=== PATIENT | male | born 1950 | race Caucasian/White ===

== ENCOUNTER 2021-01-30 09:17 | Emergency (ER) | payer OTHER, SELFPAY ==
[2021-01-30] VITALS (95 sets, daily range): BP systolic 95–178; BP diastolic 47–104; PULSE 64–104; RESP 10–28; TEMP 36.3; O2SAT 95–100
--- NOTE | 2021-01-30 09:15 | RT.EKG_ITS ---
APPROVED REPORT Exam: Resting ECG Reason for Exam: syncope Patient Location: E HR:76 bpm ECG Measurements Heart Rate 76 AXIS SC 161 P 63 QRSd 100 QRS 75 QT 414 T 26 QTc 466 Conclusion Sinus rhythm...normal P axis, V-rate 60- 99 Probable left atrial enlargement...P >50mS, <-0.10mV V1 Left ventricular hypertrophy...multiple LVH criteria no STEMI, prior EKG OSH with similar PILAR, no brugada, no WPW, [id number], non-diagnostic EKG I have reviewed and interpreted ECG and agree with software generated interpretation.
[2021-01-30] MEDS: Meclizine 25 MG TAB PO (10:12)
[2021-01-30 10:17] LABS: Abs Immature Grans 0.02 10^3/uL (0.0-0.06); Absolute Basophil Count 0.06 10^3/uL (0.0-0.2); Absolute Lymphocyte Count 3.03 10^3/uL (1.2-3.4); Absolute Monocyte Count 1.05 10^3/uL (0.1-0.8); Basophils % 0.6; Eosinophils % 0.9; HCT 49.8 % (40.0-50.0); HGB 16.2 g/dL (13.5-17.5); Immature Grans % 0.2; Lymphocytes % 28.2; MCH 32.6 pg (27.0-33.0); MCHC 32.5 % (32.0-36.0); MCV 100.2 fL (80-95); MPV 12.2 fL (8.0-11.0); Monocytes % 9.8; Neutrophils % 60.3; Nucleated RBC 0 %; Platelet Count 163 10^3/uL (130-400); RBC 4.97 10^6/uL (4.36-5.78); RDW 12.7 % (11.8-14.1); RDW-SD 47.6 fL; WBC 10.76 10^3/uL (4.4-10.8)
[2021-01-30 10:22] LABS: Bilirubin Negative (Negative); Blood Negative (Negative); Clarity Clear (Clear); Glucose Negative (Negative); Ketones Negative (Negative); Leukocyte Esterase Negative (Negative); Nitrite Negative (Negative)
[2021-01-30 10:35] LABS: ALT 30 U/L (16-63); AST 15 U/L (15-37); Albumin 3.9 g/dL (3.4-5.0); Alkaline Phosphatase 122 U/L (46-116); BUN 37 mg/dL (7-18); Bilirubin, Total 0.7 mg/dL (0.2-1.0); CREATININE 2.2 mg/dL (0.70-1.30); Calcium 9.2 mg/dL (8.5-10.1); Chloride 100 mmol/L (98-107); Estimated GFR 29.83 (mL/min/1.73m2); Glucose 83 mg/dL (74-106); Magnesium 2.5 mg/dL (1.8-2.4); Potassium 3.8 mmol/L (3.5-5.1); Sodium 137 mmol/L (136-145); Total Protein 8.3 g/dL (6.4-8.2)
[2021-01-30 10:43] LABS: Troponin I < 0.05 ng/mL (<0.06)
[2021-01-30] MEDS: Normal Saline 1,000 ML 1000 ML IV ×2 (11:15→12:30)
[2021-01-30 12:41] LABS: D-Dimer 936 ng/mlFEU (<500)
[2021-01-30 13:33] LABS: Anion Gap 4.8 mmol/L (3-11); BUN 35 mg/dL (7-18); CO2 28.2 mmol/L (21.0-32.0); CREATININE 1.9 mg/dL (0.70-1.30); Chloride 106 mmol/L (98-107); Estimated GFR 35.32 (mL/min/1.73m2); Glucose 90 mg/dL (74-106); Potassium 4.3 mmol/L (3.5-5.1); Sodium 139 mmol/L (136-145)
[2021-01-30] MEDS: Omnipaque 350 MG/ML 100 ML BTL IJ (13:54)
[2021-01-30] MEDS: Normal Saline - Diluent 50 ML VIAL IV (13:55)
--- NOTE | 2021-01-30 13:55 | DI.CT_ITS ---
Exam(s) CT BRAIN NECK CTA EXAM: CT BRAIN NECK CTA CLINICAL HISTORY: dizziness, 70%occlusion right carotid. TECHNIQUE: Imaging Protocol: Axial CT angiography was performed with multi-slice acquisition and mu lti-planar and/or 3D reconstructions. CONTRAST MATERIAL: Intravenous: Omnipaque 350 Contrast volume:60 cc COMPARISON: No exams were available for comparison FINDINGS: CTA Neck W: Aortic arch anatomy: Sternotomy wires are noted. There is significant atherosclerotic disease in the aortic arch. There is an endovascular stent noted within the subclavian artery which appears patent . Moderate atherosclerotic involvement seen at the origin of the left common carotid artery. Advanc ed atherosclerotic involvement of the origin of the brachiocephalic artery, with both soft and hard c alcified plaque at this level. Anterior circulation: No significant stenosis at the origin of the right common carotid artery off of the brachiocephalic. There is heavily calcified plaque at the right carotid bifurcation and proximal right ICA with approx imately 70 percent stenosis at this level. Above this level the right ICA is patent in the upper nec k and skull base. Left common carotid artery exhibits moderate stenosis at its origin. Mild plaque along medial wall o f the ascending left common carotid artery. There is posterior wall calcified plaque at the left car otid bifurcation. Approximately 40 percent stenosis in the proximal left ICA. Above this level the left in the internal carotid artery is patent in the upper neck and skull base. Posterior circulation: The right vertebral artery is dominant. It arises in conventional fashion off of the right subclavia n artery. There is a mild stenosis at its origin. This vessel ascends in the foramen transverse are a with a luminal diameter of 3.8 millimeters and no evidence of intraluminal thrombus nor dissection and this vessels the main contributor to the formation of the basilar artery at the skull base. The left vertebral artery is occluded at its origin.. This may be related to presence of the stent i n the proximal subclavian artery. A thin left vertebral artery is reconstituted in foramen transvers e area in the upper neck and does contribute to the formation of the basilar artery at the skull base . CTA Brain W: Anterior circulation: Both internal carotid arteries are patent in the skull base and cavernous sinuses with some mural kerri cification. Supraclinoid aspects are patent. Both middle cerebral arteries are patent. Left A1 seg ment is patent. Right A1 segment is thin vessel. Both anterior cerebral arteries are patent. There is no aneurysm at the level of the anterior communicating artery. Posterior circulation: Thin basilar artery ascends in the midline. Distally it gives off patent superior cerebellar arterie s. Above this level terminates as patent right posterior cerebral artery. The left posterior cerebr al artery is predominantly fed by posterior communicating artery on the left side of the ukhdpl-iq-Wa llis. There is no evidence of aneurysm of the tip of the basilar artery nor elsewhere in the [id number] is. CT BRAIN: There is no evidence of intracranial hemorrhage, mass effect, or shift of midline structures. There are no extra-axial fluid collections. Ventricles are not enlarged or shifted. There are no ring enh ancing lesions in the brain and no abnormal meningeal enhancement. There is no evidence of dural ronald ous sinus thrombosis. Symmetrical calcification is noted in both basal ganglia. There is moderate amount of hypodensity in the white matter surrounding the ventricles, slightly more so on the left side. Consistent with chr onic small vessel ischemic disease. IMPRESSION: 1. Patent intracranial arteries. No evidence of intraluminal thrombus nor aneurysm. 2. Left vertebral artery is occluded at its origin and reconstituted in the mid-upper in neck forame n transversarium. This may be related to the fact that there is a stent in the left subclavian arter y. The opposite-right vertebral artery is patent. 3. There is significant atherosclerotic involvement at the origin of the great vessels off the aort ic arch, this being most severe at the origin of the brachiocephalic artery. 4. There is significant atherosclerotic disease at the carotid bulbs and proximal internal carotid a rteries in the neck, with approximately 70 percent stenosis on the right side and approximately 40 pe rcent stenosis on the left side. See separate pulmonary embolus CTA study. RADIATION DOSE DELIVERED: 1,975.66mGy.cm Total DLP DATA REPOSITORY: All CT scans at this facility are submitted to the National Radiology Data Registry (NRDR) Dose Index Registry (DIR) with the [employer] (ACR). RADIATION OPTIMIZATION: All CT scans at this facility use at least one of these dose optimization te chniques: automated exposure control; mA and/or kV adjustment per patient size (includes targeted exa ms where dose is matched to clinical indication); or iterative reconstruction.
[2021-01-30 14:02] LABS: Troponin I < 0.05 ng/mL (<0.06)
--- NOTE | 2021-01-30 14:20 | DI.CT_ITS ---
Exam(s) CT CHEST PE CTA EXAM: CT CHEST PE CTA CLINICAL HISTORY: dizziness, shortness of breath ,elevated ddimer. TECHNIQUE: Imaging Protocol: CT angiography of the chest was performed using pulmonary embolus medhat col. Multi planar reconstructions were performed. CONTRAST MATERIAL: Intravenous: Omnipaque 350 Contrast volume: 40 cc COMPARISON: CT CT BRAIN NECK CTA from 01/30/2021 FINDINGS: CHEST: Less than optimal bolus timing for opacification of the pulmonary arterial tree. Most of the contrast is in the aortic arch. PULMONARY ARTERIES: There are no obvious intraluminal filling defects to suggest acute pulmonary embo li nor realized limitations of the study.. LUNGS: Emphysematous changes bilaterally.. There is a pleural-based noncalcified nodule in the right middle lobe measuring 5 millimeters. No other focal right lung findings nor pleural effusion. Left lung is clear. No pleural effusion. No findings in the trachea and mainstem bronchi. MEDIASTINUM: There is no hilar nor mediastinal adenopathy. Visualized thyroid unremarkable. CARDIAC: Sternotomy wires. Heart size is normal. No pericardial effusion. No aortic dissection.Ath erosclerotic aorta but upper normal size. Maximum diameter of the ascending thoracic aorta is 3.8 cm . Coronary artery calcification is noted. There is no significant shift of the interventricular se ptum. PARTIALLY VISUALIZED UPPERMOST ABDOMEN: No obvious findings OSSEOUS: No significant osseous lesions.. IMPRESSION: 1. No evidence of obvious acute pulmonary emboli. No evidence of pulmonary infarction.No pleural eff usions. 2. There is a solitary pleural-based 5 millimeter nodule in the right middle lobe. 3. No intrathoracic adenopathy evident. RADIATION DOSE DELIVERED: 258.35mGy.cm Total DLP DATA REPOSITORY: All CT scans at this facility are submitted to the National Radiology Data Registry (NRDR) Dose Index Registry (DIR) with the [employer] (ACR). RADIATION OPTIMIZATION: All CT scans at this facility use at least one of these dose optimization te chniques: automated exposure control; mA and/or kV adjustment per patient size (includes targeted exa ms where dose is matched to clinical indication); or iterative reconstruction.
--- NOTE | 2021-01-30 14:55 | ED.GENADUL_ITS ---
Discharge Plan Disposition Patient Disposition: HOME Condition: Stable Discharge Details Clinical Impression: Acute renal insufficiency, Vertebral artery disease, Light-headed feeling, Pulmonary nodule Primary Care Provider: Sarah Oshea ED Provider: Awais Fox Home Meds and New Rx's Prescriptions: Continued aspirin [Aspir-81] 81 MG tablet,delayed release (DR/EC) 81 mg PO DAILY RF: 0 lisinopril 2.5 MG tablet 2.5 mg PO DAILY RF: 0 omeprazole 20 mg capsule,delayed release(DR/EC) RF: 0 hydrochlorothiazide 25 mg Tablet 25 mg PO DAILY RF: 0 Discharge Instructions Additional Instructions: You will need repeat creatinine by your primary care physician Increase your hydration Follow-up with your doctor regarding your pulmonary nodule Suspect your lightheadedness is secondary to dehydration Please return immediately should you have new or worsening complaints The remainder of your test do not show acute abnormality I discussed your CTA imaging with neurology at [facility], they recommend routine outpatient ultrasound through your primary care provider. Discharge Data Discharge Date/Time-TO BE ENTERED AT DEPARTURE: 01/30/21 19:00 Medical Decision Making <WALLY Carroll - Last Filed: 01/31/21 22:51> Patient is alert and oriented, of decisional capacity, his orthostatics are negative, his EKG x2 do not show acute change, I compared this to a prior EKG that was sent over from the peds office His initial troponin and second troponin are negative He has no chest pain or shortness of breath He is ambulatory with steady gait His creatinine is elevated at 2.2 it sounds like this is acute exacerbation of his chronic renal failure He states he felt similar to this in the past but never been evaluated for it. He denies any recent neck manipulations or head injuries. Of note, because of his creatinine careful consideration was made us whether or not to perform CT imaging on the patient with After long discussion with risk and benefit, patient has consented to risk associated including risk of kidney failure and acute need for dialysis, he prefers to no that his carotid arteries are unchanged He is feeling mild improvement after IV fluid resuscitation, after repeat BMP, his creatinine is now 1.9 and BUN has decreased to 35 I did discuss the case with his PCP, Sarah and [facility] and she confirmed that this creatinine is not in acute change for patient although slightly in from prior There is no electrolyte abnormality CTA shows vertebral artery occlusioN 70% carotid artery occlusion, no other acute findings Patient is feeling symptomatically improved, his BNP creatinine has improved to 1.9 He will likely be discharged back to facility in stable condition with stable vital Expected symptoms are related to mild dehydration as he was responsive his fluid hydration in the emergency room Patient signed out to Awais Fox pending neurology consultation at [facility] <WALLY Long - Last Filed: 01/30/21 18:41> I assumed care of this 70-year-old gentleman my colleague WALLY Casanova, please see her initial HPI and examination. At time of signout awaiting neurology consultation. Patient initially presented in police custody, he is incarcerated, complaining of lightheadedness and/or dizziness for the past few days. Denies ch est pain, shortness of breath, etc. CTA of the head and neck reveals a vertebral occlusion, he does have a subclavian stent. Patient did receive IV fluid, did appear dry, and after IV fluid his renal function improved and he is asymptomatic. I received a call from neurology at 1750, Dr. Cortez. We initially discussed the case, he was going to review imaging from today and previous and call me b ack. He called me back at 1810. [place] as though there is nothing acute on the CTA today, did not require any emergent intervention. He felt as though the patient could continue to have outpatient follow-up ultrasounds through his primary care provider, had no additional recommendations at this time from a neurologic standpoint. Discussed case with patient. He is relieved regarding his CTA and my c onversation with neurology. He is currently asymptomatic and has no additional questions or concerns. He is comfortable discharge. Standard discharge and return precautions provided. This documentation was generated using [employer] system, please disregard any oddities of phrase or misspellings. HPI <WALLY Carroll - Last Filed: 01/31/21 22:51> General Mode of arrival: ambulatory . Date/Time Provider Initiated Documentation: 01/30/21 09:39 . Limitations to Documentation: no limitations . Information obtained by: patient . HPI Narrative: This 70-year-old male with past medical history of coronary artery disease, hypertension, hyperlipidemia presents with report of lightheadedness. Lightheadedness patient states he had a for the past 3 days. He denies any chest pain or shortness of breath. He denies any overt dizziness or weakness. He does have a prior history and and CABG done several years ago. He denies any change in his medication aside from removing the lisinopril secondary to hypotension and only taking carvedilol, aspirin, and Lipitor at this time. He states his symptoms are exacerbated when he goes from sitting to standing. He denies any additional complaints at this time. Related Data Home Medications Medication Instructions Recorded Confirmed aspirin [Aspir-81] 81 mg PO DAILY 10/21/15 01/30/21 lisinopril 2.5 mg PO DAILY 10/21/15 01/30/21 hydrochlorothiazide 25 mg PO DAILY 01/30/21 01/30/21 omeprazole 01/30/21 01/30/21 Allergies Allergy/AdvReac Type Severity Reaction Status Date / Time codeine AdvReac Intermediate Nausea Unverified 01/30/21 09:29 General Stated Complaint: Dizzy/Sync TED: 3 Review of Systems <WALLY Carroll - Last Filed: 01/31/21 22:51> All systems reviewed & are unremarkable except as noted in HPI and below PFSH <WALLY Carroll - Last Filed: 01/31/21 22:51> Social History Smoking/Tobacco Use Status: Former Tobacco Use Smoking risk assessment performed?: Yes Alcohol Intake: former Drug use: Rarely Substance use type: marijuana Do you feel safe at home: Yes Do you feel safe in your relationship?: Yes Exam <WALLY Carroll - Last Filed: 01/31/21 22:51> Const General: cooperative, comfortable and no acute distress HENCA Head: normal to inspection Mouth: oral mucosae normal Throat: uvula midline Eyes Pupils: PERRL EOM: EOM intact bilaterally Neck Other: Right carotid bruit Chest Chest: normal inspection of the chest Resp Effort & Inspection: normal respiratory effort Auscultation: clear to auscultation bilaterally Cardio Rate: regular rate Rhythm: regular rhythm GI Inspection: normal to inspection Skin General skin exam: no rashes or lesions noted Neuro General: patient alert and patient oriented x3 Cranial Nerves: CN's II-XI intact bilaterally and tongue midline Cognition: normal cognition Speech: speech normal Gait: normal gait Motor: muscle tone normal throughout, strength 5/5 throughout and no pronator drift Sensory Exam: no sensory deficits noted Extrem General: normal to inspection and capillary refill normal Psych Appearance: grossly normal and well kempt Course <WALLY Carroll - Last Filed: 01/31/21 22:51> Vital Signs Vital signs: Vital Signs Respiratory Rate 14 01/30/21 09:21 Temperature 36.3 C L 01/30/21 09:26 Temperature Source Skin 01/30/21 09:26 Pulse 70 01/30/21 14:45 Pulse 73 01/30/21 14:50 Respiratory Rate 16 01/30/21 14:50 Respiratory Effort Non-Labored 01/30/21 09:33 Respiratory Depth Normal 01/30/21 09:33 Respiratory Pattern Normal 01/30/21 09:33 Blood Pressure 125/54 L 01/30/21 14:45 Blood Pressure Mean 73 01/30/21 14:45 Blood Pressure Position Supine 01/30/21 09:26 Pulse Oximetry 99 01/30/21 14:50 Oxygen Delivery Method Room Air 01/30/21 09:26 Oxygen Flow Rate 0 01/30/21 09:26 Pain Level 0 01/30/21 09:26 Lab/Test Results Lab/Test Results: Laboratory Tests Range/Units 01/30/21 01/30/21 01/30/21 10:10 10:11 10:11 WBC (4.4-10.8) 10^3/uL 10.76 RBC (4.36-5.78) 10^6/uL 4.97 Hgb (13.5-17.5) g/dL 16.2 Hct (40.0-50.0) % 49.8 MCV (80-95) fL 100.2 H MCH (27.0-33.0) pg 32.6 MCHC (32.0-36.0) % 32.5 RDW (11.8-14.1) % 12.7 Plt Count (130-400) 10^3/uL 163 MPV (8.0-11.0) fL 12.2 H Immature Gran % 0.2 Neutrophils % 60.3 Lymphocytes % 28.2 Monocytes % 9.8 Eosinophils % 0.9 Basophils % 0.6 Nucleated RBC % % 0 Absolute Neutrophils (1.2-6.7) 10^3/uL 6.50 Absolute Lymphocytes (1.2-3.4) 10^3/uL 3.03 Absolute Monocytes (0.1-0.8) 10^3/uL 1.05 H Absolute Eosinophils (0.0-0.7) 10^3/uL 0.10 Absolute Basophils (0.0-0.2) 10^3/uL 0.06 D-Dimer (<500) ng/mlFEU Sodium (136-145) mmol/L 137 Potassium (3.5-5.1) mmol/L 3.8 Chloride (98-107) mmol/L 100 Carbon Dioxide (21.0-32.0) mmol/L 30.0 Anion Gap (3-11) mmol/L 7.0 BUN (7-18) mg/dL 37 H Creatinine (0.70-1.30) mg/dL 2.2 H Estimated GFR/1.73 m2 (mL/min/1.73m2) 29.83 Glucose (74-106) mg/dL 83 Calcium (8.5-10.1) mg/dL 9.2 Magnesium (1.8-2.4) mg/dL 2.5 H Total Bilirubin (0.2-1.0) mg/dL 0.7 AST (15-37) U/L 15 ALT (16-63) U/L 30 Alkaline Phosphatase (46-116) U/L 122 H Troponin I (<0.06) ng/mL < 0.05 Total Protein (6.4-8.2) g/dL 8.3 H Albumin (3.4-5.0) g/dL 3.9 Urine Color (Yellow) Yellow Urine Clarity (Clear) Clear Urine pH (5-8) 6.0 Ur Specific [place] (1.005-1.025) 1.020 Urine Protein (Negative) mg/dL Negative Urine Ketones (Negative) mg/dL Negative Urine Blood (Negative) Negative Urine Nitrite (Negative) Negative Urine Bilirubin (Negative) Negative Urine Urobilinogen (Up TO 0.2) EU/dL 1.0 H Ur Leukocyte Esterase (Negative) Negative Urine Glucose (Negative) mg/dL Negative Range/Units 01/30/21 01/30/21 01/30/21 10:11 12:45 13:20 WBC (4.4-10.8) 10^3/uL RBC (4.36-5.78) 10^6/uL Hgb (13.5-17.5) g/dL Hct (40.0-50.0) % MCV (80-95) fL MCH (27.0-33.0) pg MCHC (32.0-36.0) % RDW (11.8-14.1) % Plt Count (130-400) 10^3/uL MPV (8.0-11.0) fL Immature Gran % Neutrophils % Lymphocytes % Monocytes % Eosinophils % Basophils % Nucleated RBC % % Absolute Neutrophils (1.2-6.7) 10^3/uL Absolute Lymphocytes (1.2-3.4) 10^3/uL Absolute Monocytes (0.1-0.8) 10^3/uL Absolute Eosinophils (0.0-0.7) 10^3/uL Absolute Basophils (0.0-0.2) 10^3/uL D-Dimer (<500) ng/mlFEU 936 H Sodium (136-145) mmol/L 139 Potassium (3.5-5.1) mmol/L 4.3 Chloride (98-107) mmol/L 106 Carbon Dioxide (21.0-32.0) mmol/L 28.2 Anion Gap (3-11) mmol/L 4.8 BUN (7-18) mg/dL 35 H Creatinine (0.70-1.30) mg/dL 1.9 H Estimated GFR/1.73 m2 (mL/min/1.73m2) 35.32 Glucose (74-106) mg/dL 90 Calcium (8.5-10.1) mg/dL 8.0 L Magnesium (1.8-2.4) mg/dL Total Bilirubin (0.2-1.0) mg/dL AST (15-37) U/L ALT (16-63) U/L Alkaline Phosphatase (46-116) U/L Troponin I (<0.06) ng/mL < 0.05 Total Protein (6.4-8.2) g/dL Albumin (3.4-5.0) g/dL Urine Color (Yellow) Urine Clarity (Clear) Urine pH (5-8) Ur Specific [place] (1.005-1.025) Urine Protein (Negative) mg/dL Urine Ketones (Negative) mg/dL Urine Blood (Negative) Urine Nitrite (Negative) Urine Bilirubin (Negative) Urine Urobilinogen (Up TO 0.2) EU/dL Ur Leukocyte Esterase (Negative) Urine Glucose (Negative) mg/dL Sign Out <WALLY Carroll - Last Filed: 01/31/21 22:51> Sign Out Data: Sign Out Comment: Pending CTA head and neck interpretation review with on-call neurology Last updated by Marian Goss PA at 01/30/21 16:57
--- NOTE | 2021-01-30 15:00 | RT.EKG_ITS ---
APPROVED REPORT Exam: Resting ECG Reason for Exam: DIZZY Patient Location: E HR:75 bpm ECG Measurements Heart Rate 75 AXIS ID 172 P 53 QRSd 98 QRS 74 QT 422 T -7 QTc 472 Conclusion Sinus rhythm...normal P axis, V-rate 60- 99 Probable anteroseptal infarct, recent...Q, ST>0.15mV, T neg, V1-V2 no STEMI, non-diagnostic EKG I have reviewed and interpreted ECG and agree with software generated interpretation.
== END 2021-01-30 19:00 | disposition home or self-care (01) ==
PROVIDERS: Physician Assistant; Emergency Provider Physician Assistant; PCP Nurse Practitioner
DX: N28.9 Disorder of kidney and ureter, unspecified (principal); R42 Dizziness and giddiness; I65.02 Occlusion and stenosis of left vertebral artery; R91.1 Solitary pulmonary nodule
CPT/HCPCS: 36415; 70496; 70498; 71275; 80048; 80053; 93005; 96360; 96361; 99285; 81003; 83735; 84484; 85025; 85379; 93010; J3490

== ENCOUNTER 2021-03-02 11:32 | Emergency (ER) | payer OTHER, SELFPAY ==
[2021-03-02] VITALS (70 sets, daily range): BP systolic 112–136; BP diastolic 57–68; PULSE 57–70; RESP 11–26; TEMP 36.5–36.8; O2SAT 96–100
--- NOTE | 2021-03-02 11:15 | RT.EKG_ITS ---
APPROVED REPORT Exam: Resting ECG Reason for Exam: chest pain Patient Location: E HR:60 bpm ECG Measurements Heart Rate 60 AXIS NH 165 P 56 QRSd 108 QRS 72 QT 489 T 12 QTc 488 Conclusion Sinus rhythm...normal P axis, V-rate 60- 99 Probable left atrial enlargement...P >50mS, <-0.10mV V1 Left ventricular hypertrophy...multiple LVH criteria
--- NOTE | 2021-03-02 11:32 | ED.GENADUL_ITS ---
Discharge Plan Disposition Patient Disposition: [facility] Condition: Stable Discharge Details Clinical Impression: Chest pain Primary Care Provider: Sarah Oshea ED Provider: Maco Ruiz Home Meds and New Rx's Prescriptions: Continued aspirin [Aspir-81] 81 MG tablet,delayed release (DR/EC) 81 mg PO DAILY RF: 0 lisinopril 2.5 MG tablet 2.5 mg PO DAILY RF: 0 hydrochlorothiazide 25 mg Tablet 25 mg PO DAILY RF: 0 carvedilol 12.5 mg tablet 12.5 mg PO DAILY RF: 0 omeprazole 40 mg capsule,delayed release(DR/EC) 40 mg PO DAILY RF: 0 amitriptyline 10 mg tablet 10 mg PO HS RF: 0 pregabalin 150 mg capsule 150 mg PO BID RF: 0 Discharge Instructions Additional Instructions: your blood work, ekg and xray did not show concerning findings this pain is likely related to your esophagus you may need to see a revenue investigator and also have an endoscopy done if symptoms continue if you feel more ill, have fevers or severe worsening pain return to the emergency department Medical Decision Making 70 yo male with hx of cabg 7 years ago, htn, who comes in from the [facility] with chest pain. He states the pain has been constant for 2 months or longer he believes. He states he has had trouble swallowing food and feels like it gets stuck in the esophagus. He denies radiation of the pain, diaphoresis, n/v, or pain with exertion. He has tenderness of the anterior chest on exam. He is in no distress speaking in full sentences. He has clear lungs, soft nontender abdomen, no jvd or leg swelling or calf tenderness. He was seen here at the end of January and had a cta of his chest with no acute findings, no PE, and currently has no tachycardia, hypoxia or evidence of dvt on exam so do not feel this is likely a PE. No tearing back pain and normal sensation so doubt dissection. His symptoms seem atypical for acs especially with the component of feeling food getting stuck in his esophagus and feel it is likely related to his esophagus but will obtain ecg and troponin and obtain cxr as well. labs and imaging shows no acute findings, remains stable. He has no pain and states he is just feeling as though food is getting stuck in his distal esophagus. He is drinking water here normally and can eat soft foods as well. Had no obvious mass on CT a month ago so doubt cancer but discussed he may need to have an egd if symptoms continue. Will obtain delta troponin. pt stable, delta troponin negative. Discussed with pt and he is stable for d/c, return precautions given Differential Diagnosis Differential Diagnosis: chest wall pain, esophageal spasm, nstemi Imaging Data Radiologic Study: Attestation: I personally reviewed and interpreted this imaging study as follows: Imaging: X-Ray Radiologist's impression: no acute findings Lab Data Lab results reviewed: Yes I reviewed the patient's lab results. ECG Data Attestation: I personally reviewed and interpreted this ECG (s) as follows: Prior ECG tracings: available for review Interpretation: sinus rhythm, rate of 60, no acute st t wave ischemic findings compared to prior ekg HPI General Mode of arrival: EMS . Date/Time Provider Initiated Documentation: 03/02/21 11:42 . Limitations to Documentation: no limitations . Information obtained by: patient . History of Present Illness 70 year old M presents to the emergency department with the chief complaint of chest pain, described as moderate, Patient started experiencing this month(s) (1) and it has been constant. No relieving factors improve symptom(s), No exacerbating factors reported . Patient notes no other symptoms.. Patient did receive the following treatments prior to arrival, none Related Data Home Medications Medication Instructions Recorded Confirmed aspirin [Aspir-81] 81 mg PO DAILY 10/21/15 03/02/21 lisinopril 2.5 mg PO DAILY 10/21/15 03/02/21 hydrochlorothiazide 25 mg PO DAILY 01/30/21 03/02/21 amitriptyline 10 mg PO HS 03/02/21 03/02/21 carvedilol 12.5 mg PO DAILY 03/02/21 03/02/21 omeprazole 40 mg PO DAILY 03/02/21 03/02/21 pregabalin 150 mg PO BID 03/02/21 03/02/21 Allergies Allergy/AdvReac Type Severity Reaction Status Date / Time codeine AdvReac Intermediate Nausea Unverified 03/02/21 11:45 General TED: 3 Review of Systems All systems reviewed & are unremarkable except as noted in HPI and below Constitutional Constitutional: Denies chills, Denies fever(s) and Denies weakness Cardiovascular Cardiovascular: Denies dyspnea Respiratory Respiratory: Denies cough and Denies dyspnea Gastrointestinal Gastrointestinal: Denies abdominal pain, Denies nausea and Denies vomiting Musculoskeletal Musculoskeletal: Denies joint swelling Neurologic Neurologic: Denies weakness Psychiatric Psychiatric: Denies depression PFSH Social History Smoking/Tobacco Use Status: Former Tobacco Use Smoking risk assessment performed?: Yes Alcohol Intake: former Drug use: Rarely Substance use type: marijuana Do you feel safe at home: Yes Do you feel safe in your relationship?: Yes Exam Const General: no acute distress Orientation: alert HENMT Head: normal to inspection Ears: external ears normal General nose exam: external nose normal Mouth: moist mucous membranes Eyes General: appearance normal, both eyes and all related structures Neck Neck: normal visual inspection Chest Chest: no crepitus and tenderness Resp Effort & Inspection: normal respiratory effort and able to speak in complete sentences Cardio Rate: regular rate Skin General skin exam: no rashes or lesions noted Neuro General: patient alert and patient oriented x3 Extrem General: normal to inspection Psych Mental Status: mental status grossly normal
--- NOTE | 2021-03-02 11:45 | DI.RAD_ITS ---
Exam(s) XR CHEST 2V PA LATERAL EXAM: XR CHEST 2V PA LATERAL CLINICAL HISTORY: chest pain. TECHNIQUE: 2D digital imaging was performed. COMPARISON: No exams were available for comparison FINDINGS: Sternotomy wires are noted Heart size is normal. The mediastinum is not widened. Lungs are clear. No infiltrates nor pleural effusions. Pulmonary edema. No pneumothorax. IMPRESSION: Sternotomy wires. Previous CABG. No acute pulmonary findings. No pleural effusions. DATA REPOSITORY: RADIATION DOSE DELIVERED:
[2021-03-02 13:19] LABS: Abs Immature Grans 0.02 10^3/uL (0.0-0.06); Absolute Basophil Count 0.05 10^3/uL (0.0-0.2); Absolute Eosinophil Count 0.07 10^3/uL (0.0-0.7); Absolute Lymphocyte Count 2.58 10^3/uL (1.2-3.4); Absolute Monocyte Count 0.97 10^3/uL (0.1-0.8); Absolute Neutrophil Count 6.42 10^3/uL (1.2-6.7); Basophils % 0.5; Eosinophils % 0.7; HCT 43.5 % (40.0-50.0); HGB 14.4 g/dL (13.5-17.5); Immature Grans % 0.2; Lymphocytes % 25.5; MCH 32.4 pg (27.0-33.0); MCHC 33.1 % (32.0-36.0); MCV 97.8 fL (80-95); MPV 11.6 fL (8.0-11.0); Monocytes % 9.6; Neutrophils % 63.5; Nucleated RBC 0 %; Platelet Count 152 10^3/uL (130-400); RBC 4.45 10^6/uL (4.36-5.78); RDW 12.3 % (11.8-14.1); RDW-SD 44.4 fL; WBC 10.11 10^3/uL (4.4-10.8)
[2021-03-02 13:35] LABS: ALT 31 U/L (16-63); AST 19 U/L (15-37); Albumin 3.7 g/dL (3.4-5.0); Alkaline Phosphatase 117 U/L (46-116); Anion Gap 6.8 mmol/L (3-11); BUN 33 mg/dL (7-18); Bilirubin, Total 0.6 mg/dL (0.2-1.0); CO2 32.2 mmol/L (21.0-32.0); CREATININE 1.7 mg/dL (0.70-1.30); Calcium 9.1 mg/dL (8.5-10.1); Chloride 103 mmol/L (98-107); Estimated GFR 40.16 (mL/min/1.73m2); Glucose 108 mg/dL (74-106); Lipase 109 U/L (73-393); Potassium 3.8 mmol/L (3.5-5.1); Sodium 142 mmol/L (136-145); Total Protein 7.4 g/dL (6.4-8.2)
[2021-03-02 13:37] LABS: Troponin I < 0.05 ng/mL (<0.06)
[2021-03-02 15:10] LABS: Troponin I < 0.05 ng/mL (<0.06)
== END 2021-03-02 15:32 | disposition home or self-care (01) ==
PROVIDERS: Emergency Provider Emergency Medicine; PCP Nurse Practitioner
DX: R07.89 Other chest pain (principal); R13.10 Dysphagia, unspecified
CPT/HCPCS: 80053; 83690; 93005; 99284; 71046; 84484; 85025; 93010

== ENCOUNTER 2021-05-20 21:32 | Emergency (ER) | payer OTHER, SELFPAY ==
[2021-05-20 21:35] VITALS: BP 132/70; PULSE 76; RESP 12; TEMP 36.1; O2SAT 100
--- NOTE | 2021-05-20 22:07 | DI.CT_ITS ---
Exam(s) CT ABDOMEN PELVIS WO EXAM: CT ABDOMEN PELVIS WO CLINICAL HISTORY: epigastric pain, inability to tolerate p.o. intake. TECHNIQUE: Imaging Protocol: Axial computed tomography images with coronal and sagittal reformatted images were created and reviewed CONTRAST MATERIAL: Intravenous: none Oral: None COMPARISON: CT CT CHEST PE CTA from 01/30/2021 FINDINGS: VISUALIZED LUNG BASES: No pleural effusions. No obvious nodules in the visualized right lung base. There is a 2 millimeter pleural base nodule in the posterior basal segment of the left lower lobe. ABDOMEN: There is a moderate size hiatal hernia evident. There is no ascites. LIVER: There are no obvious focal hepatic lesions evident of this noninfused study. GALLBLADDER/BILIARY: Gallbladder lumen is mildly distended. No gallbladder wall edema. No radiopaqu e calculi seen within the gallbladder lumen. There is no pericholecystic fluid. CBD is not dilated. PANCREAS: No evidence of pancreatic mass nor dilatation of the pancreatic duct. SPLEEN: Spleen is not enlarged. No obvious intrasplenic lesions. ADRENALS: There are no significant adrenal masses. KIDNEYS:Right kidney unremarkable. In the lateral cortex of the left kidney there is a uniformly hyp erdense 10 x 9 millimeter nodule which probably represents a hemorrhagic cyst but cannot exclude more concerning pathology. No calculi. No hydronephrosis. No hydroureter. Urinary bladder wall is dif fusely thickened and this appears to be related to enlarged prostate. ABDOMINAL AORTA: Calcified but not enlarged. LYMPH NODES: There is no retroperitoneal nor paraaortic adenopathy. ABDOMINAL WALL: No evidence of significant anterior abdominal wall nor inguinal hernia. GI: There is no evidence of bowel obstruction, free air, nor abscess. PELVIS: LYMPH NODES: There is no intrapelvic nor inguinal adenopathy. GI: No evidence of appendicitis.No evidence of sigmoid diverticulitis. URINARY BLADDER: No calculi nor obvious masses evident REPRODUCTIVE: Unremarkable OSSEOUS: No significant osseous lesions. Ankylosis of the SI joints is noted. IMPRESSION: 1. There is mild distention of the gallbladder lumen without evidence of radiopaque calculi within th e lumen nor gallbladder wall edema nor pericholecystic fluid. If clinically indicated follow-up ultr asound could be performed. The CBD is not dilated. 2. Moderate size hiatal hernia is noted. 3. There is a 1 cm uniformly hyperdense nodule in the lateral aspect of the left kidney. This is pro bably hemorrhagic cyst but should undergo ultrasound to ensure that it is cystic and not solid. No o ther focal renal findings. No hydronephrosis. Other findings as above RADIATION DOSE DELIVERED: 538.65mGy.cm Total DLP DATA REPOSITORY: All CT scans at this facility are submitted to the National Radiology Data Registry (NRDR) Dose Index Registry (DIR) with the [employer] (A[employer]). RADIATION OPTIMIZATION: All CT scans at this facility use at least one of these dose optimization te chniques: automated exposure control; mA and/or kV adjustment per patient size (includes targeted exa ms where dose is matched to clinical indication); or iterative reconstruction.
[2021-05-20] MEDS: Normal Saline 1,000 ML 250 ML IV (22:10)
[2021-05-20] MEDS: FAMOTIDINE 20 MG/50 ML BAG 200 MG IVPB (22:25)
[2021-05-20 22:28] LABS: Abs Immature Grans 0.04 10^3/uL (0.0-0.06); Absolute Basophil Count 0.08 10^3/uL (0.0-0.2); Absolute Eosinophil Count 0.09 10^3/uL (0.0-0.7); Absolute Lymphocyte Count 3.24 10^3/uL (1.2-3.4); Absolute Monocyte Count 1.13 10^3/uL (0.1-0.8); Absolute Neutrophil Count 6.06 10^3/uL (1.2-6.7); Basophils % 0.8; Eosinophils % 0.8; HCT 45.7 % (40.0-50.0); HGB 14.7 g/dL (13.5-17.5); Immature Grans % 0.4; Lymphocytes % 30.5; MCH 32.3 pg (27.0-33.0); MCHC 32.2 % (32.0-36.0); MCV 100.4 fL (80-95); Monocytes % 10.6; Neutrophils % 56.9; Nucleated RBC 0 %; Platelet Count 186 10^3/uL (130-400); RBC 4.55 10^6/uL (4.36-5.78); RDW 12.7 % (11.8-14.1); RDW-SD 47.6 fL; WBC 10.64 10^3/uL (4.4-10.8)
[2021-05-20 22:31] VITALS: BP 151/54; PULSE 58; O2SAT 100
[2021-05-20 22:47] LABS: ALT 18 U/L (16-63); AST 23 U/L (15-37); Albumin 4.2 g/dL (3.4-5.0); Alkaline Phosphatase 158 U/L (46-116); Anion Gap 13.7 mmol/L (3-11); BUN 74 mg/dL (7-18); Bilirubin, Total 1.1 mg/dL (0.2-1.0); CO2 29.3 mmol/L (21.0-32.0); CREATININE 2.6 mg/dL (0.70-1.30); Calcium 10.1 mg/dL (8.5-10.1); Chloride 103 mmol/L (98-107); Estimated GFR 24.53 (mL/min/1.73m2); Glucose 92 mg/dL (74-106); Lipase 121 U/L (73-393); Magnesium 2.4 mg/dL (1.8-2.4); Potassium 3.5 mmol/L (3.5-5.1); Sodium 146 mmol/L (136-145); Total Protein 8.8 g/dL (6.4-8.2)
--- NOTE | 2021-05-20 22:52 | ED.GENADUL_ITS ---
Discharge Plan Disposition Patient Disposition: HOME Condition: Stable Discharge Details Clinical Impression: Abdominal pain, epigastric Primary Care Provider: Sarah Oshea ED Provider: Peter Ramachandran Home Meds and New Rx's Prescriptions: New famotidine [Pepcid] 20 mg tablet 20 mg PO BID Qty: 56 RF: 0 Continued atorvastatin 80 mg tablet 80 mg PO DAILY RF: 0 amlodipine 5 mg tablet 5 mg PO DAILY RF: 0 nitroglycerin [Nitrostat] 0.4 mg tablet, sublingual 0.4 mg sublingual Q5M PRNRF: 0 multivitamin Tablet 1 tab PO DAILY RF: 0 hydrochlorothiazide 25 mg tablet 25 mg PO DAILY RF: 0 aspirin [Aspir-81] 81 MG tablet,delayed release (DR/EC) 81 mg PO DAILY RF: 0 carvedilol 12.5 mg tablet 12.5 mg PO BID RF: 0 ondansetron HCl 4 mg Tablet 4 mg PO TID PRN PRNRF: 0 pantoprazole [Protonix] 40 mg Tablet,Delayed Release (Dr/Ec) 40 mg PO DAILY RF: 0 No Action amitriptyline 10 mg tablet 10 mg PO HS RF: 0 pregabalin 150 mg capsule 150 mg PO BID RF: 0 Discharge Instructions Instructions: Epigastric Pain (ED) Additional Instructions: Please follow-up with general surgery or a capital project engineer to schedule upper endoscopy. Call to schedule an appointment. Please drink on it please drink plenty of fluid to stay hydrated. Please take both Pepcid over the next 2 weeks as prescribed. Please be sure to Protonix as previously prescribed. Please contact your primary care physician to arrange follow-up. Return to the ER immediately for any worsening or new concerning symptoms. Referrals: [facility] [Provider Group] Sarah Oshea [Primary Care Provider] - Medical Decision Making <Liam Markham NP - Last Filed: 05/21/21 20:31> Patient presenting to the emergency department with chief complaint of epigastric pain. Patient reports that this has been ongoing for the past 4 months but over the past 2 to 3 weeks he has had noted decrease in ability to tolerate any p.o. intake. States similar symptoms in the past and beyond the severity and p.o. intake no other changes in symptoms. Physical exam shows exquisitely tender epigastrium otherwise unremarkable exam. Given significant decrease in p.o. intake do plan on checking labs with biggest concern of and performing CT imaging with concern of possible space-occupying lesion/mass we will plan to hydrate patient Reviewed labs and shows signs of acute renal insufficiency which at baseline patient has poor renal function. But otherwise nonconcerning electrolytes CBC is unremarkable and of note patient is not anemic. Patient does have signs of acute dehydration. Review of CT imaging along with radiologist interpretation shows a report of moderate distention of the gallbladder which is otherwise unremarkable and noting that this could be potentially reflecting a fasting gallbladder which per patient reports correlates. Otherwise no other acute findings are noted. Patient reassessed and states request for p.o. intake after famotidine and 1 L fluids. I feel this is reasonable and patient given GI cocktail and plan to p.o. challenge. We will also give patient further IV hydration given kidney function and recheck labs. <Peter Ramachandran MD - Last Filed: 05/21/21 07:47> I received signout from CHOCO Markham with plan to follow-up on repeat chemistry to ensure creatinine improving with fluid rehydration. Patient tolerating p.o. intake. Repeat creatinine and GFR have improved with IV fluid bolus. Plan for discharge with outpatient follow-up with general surgery for endoscopy. Patient was encouraged to drink plenty of fluids to maintain hydration. I will prescribe Pepcid and encouraged him to take Protonix as previously prescribed. Usual and customary discharge instructions were reviewed with the patient. HPI <Liam Markham NP - Last Filed: 05/21/21 20:31> General Mode of arrival: ambulatory . Date/Time Provider Initiated Documentation: 05/20/21 21:41 . Limitations to Documentation: no limitations . Information obtained by: patient . History of Present Illness 71 year old M presents to the emergency department with the chief complaint of Epigastric pain, described as moderate and similar to prior episodes, Quality is described as burning and aching, and is localized to the abdomen. Patient started experiencing this month(s) (4) and it has been constant. No relieving factors improve symptom(s), Eating worsens symptoms . Patient notes no other symptoms.. Patient did receive the following treatments prior to arrival, none Related Data Home Medications Medication Instructions Recorded Confirmed aspirin [Aspir-81] 81 mg PO DAILY 10/21/15 05/20/21 amitriptyline 10 mg PO HS 03/02/21 04/14/21 carvedilol 12.5 mg PO BID 03/02/21 05/20/21 pregabalin 150 mg PO BID 03/02/21 04/14/21 amlodipine 5 mg tablet 5 mg PO DAILY 03/14/21 05/20/21 atorvastatin 80 mg tablet 80 mg PO DAILY 03/14/21 05/20/21 multivitamin 1 tab PO DAILY 03/14/21 05/20/21 nitroglycerin 0.4 mg sublingual 0.4 mg SUBLINGUAL Q5M PRN 03/14/21 04/14/21 tablet hydrochlorothiazide 25 mg tablet 25 mg PO DAILY 04/07/21 05/20/21 ondansetron HCl 4 mg PO TID PRN PRN 05/20/21 05/20/21 pantoprazole [Protonix] 40 mg PO DAILY 05/20/21 05/20/21 famotidine [Pepcid] 20 mg PO BID #56 tab 05/21/21 Previous Rx's Medication Instructions Recorded famotidine [Pepcid] 20 mg PO BID #56 tab 05/21/21 Allergies Allergy/AdvReac Type Severity Reaction Status Date / Time pregabalin Allergy Unknown unknown Verified 05/20/21 21:51 codeine AdvReac Intermediate Nausea Unverified 05/20/21 21:51 General Stated Complaint: Abd Prob TED: 3 Review of Systems <Liam Markham NP - Last Filed: 05/21/21 20:31> Constitutional Constitutional: Denies chills, Denies fever(s) and Reports poor appetite ENT Ears, Nose, Mouth, and Throat: Denies dysphagia and Denies odynophagia Cardiovascular Cardiovascular: Denies chest pain and Denies dyspnea Respiratory Respiratory: Denies cough and Denies dyspnea Gastrointestinal Gastrointestinal: Reports as per HPI, Reports abdominal pain, Denies melena, Denies change in bowel habits, Denies constipation, Denies dysphagia, Reports heartburn, Denies diarrhea, Reports nausea, Denies odynophagia, Denies vomiting and Denies hematemesis Genitourinary Genitourinary: Denies difficulty urinating Integumentary/Breasts Skin/Breast: Denies rash PFSH <Liam Markham NP - Last Filed: 05/21/21 20:31> All Active Problems (Updated 05/21/21 @ 00:54 by Peter Ramachandran MD) Abdominal pain, epigastric (Acute) Murmur, heart (Acute) Dysphagia (Acute) Cerebrovascular disease (Acute) GERD (gastroesophageal reflux disease) (Chronic) Heart disease (Acute) Acute renal insufficiency (Acute) Vertebral artery disease (Acute) Light-headed feeling (Acute) Pulmonary nodule (Acute) Chest pain (Acute) Medical History Cataracts, bilateral Hypertension SARS-CoV-2 positive (~01/2021) Surgical History History of common carotid artery stent placement 2017 [facility] History of coronary artery bypass graft x [address] [place] [address] Social History Smoking/Tobacco Use Status: Former Tobacco Use Smoking risk assessment performed?: Yes Alcohol Intake: former Drug use: Never Do you feel safe at home: Yes Do you feel safe in your relationship?: Yes Exam <Liam Markham NP - Last Filed: 05/21/21 20:31> Const General: cooperative Orientation: alert, awake and oriented x3 Resp Effort & Inspection: normal respiratory effort and able to speak in complete sentences Auscultation: clear to auscultation bilaterally Cardio Rate: regular rate Rhythm: regular rhythm Heart Sounds: S1 normal and S2 normal GI Palpation: soft, no hepatosplenomegaly, not firm, no guarding, no masses, no pulsatile masses, not rigid, no splenomegaly and tender in the epigastrum; not at McBurney's point, Carpenter's sign negative and with no rebound tenderness Auscultation: hypoactive bowel sounds Back/Spine/Pelvis Back: no CVA tenderness Neuro General: patient alert, patient awake, patient oriented x3, gait normal and moves all extremities Course <Liam Markham NP - Last Filed: 05/21/21 20:31> Vital Signs Vital signs: Vital Signs Temperature 36.1 C L 05/20/21 21:35 Pulse 76 05/20/21 21:35 Respiratory Rate 12 05/20/21 21:35 Blood Pressure 132/70 05/20/21 21:35 Pulse Oximetry 100 05/20/21 21:35 Temperature 36.1 C L 05/20/21 21:35 Temperature Source Skin 05/20/21 21:35 Pulse 58 L 05/20/21 22:31 Respiratory Rate 12 05/20/21 21:35 Blood Pressure 151/54 H 05/20/21 22:31 Blood Pressure Mean 79 05/20/21 22:31 Pulse Oximetry 100 05/20/21 22:31 Oxygen Delivery Method Room Air 05/20/21 21:35 Oxygen Flow Rate 0 05/20/21 21:35 Pain Level 10 05/20/21 21:35 Lab/Test Results Lab/Test Results: Laboratory Tests Range/Units 05/20/21 05/20/21 22:00 22:00 WBC (4.4-10.8) 10^3/uL 10.64 RBC (4.36-5.78) 10^6/uL 4.55 Hgb (13.5-17.5) g/dL 14.7 Hct (40.0-50.0) % 45.7 MCV (80-95) fL 100.4 H MCH (27.0-33.0) pg 32.3 MCHC (32.0-36.0) % 32.2 RDW (11.8-14.1) % 12.7 Plt Count (130-400) 10^3/uL 186 MPV (8.0-11.0) fL 12.0 H Immature Gran % 0.4 Neutrophils % 56.9 Lymphocytes % 30.5 Monocytes % 10.6 Eosinophils % 0.8 Basophils % 0.8 Nucleated RBC % % 0 Absolute Neutrophils (1.2-6.7) 10^3/uL 6.06 Absolute Lymphocytes (1.2-3.4) 10^3/uL 3.24 Absolute Monocytes (0.1-0.8) 10^3/uL 1.13 H Absolute Eosinophils (0.0-0.7) 10^3/uL 0.09 Absolute Basophils (0.0-0.2) 10^3/uL 0.08 Sodium (136-145) mmol/L 146 H Potassium (3.5-5.1) mmol/L 3.5 Chloride (98-107) mmol/L 103 Carbon Dioxide (21.0-32.0) mmol/L 29.3 Anion Gap (3-11) mmol/L 13.7 H BUN (7-18) mg/dL 74 H Creatinine (0.70-1.30) mg/dL 2.6 H Estimated GFR/1.73 m2 (mL/min/1.73m2) 24.53 Glucose (74-106) mg/dL 92 Calcium (8.5-10.1) mg/dL 10.1 Magnesium (1.8-2.4) mg/dL 2.4 Total Bilirubin (0.2-1.0) mg/dL 1.1 H AST (15-37) U/L 23 ALT (16-63) U/L 18 Alkaline Phosphatase (46-116) U/L 158 H Total Protein (6.4-8.2) g/dL 8.8 H Albumin (3.4-5.0) g/dL 4.2 Lipase (73-393) U/L 121 Sign Out <Liam Markham NP - Last Filed: 05/21/21 20:31> Sign Out Data: Sign Out Comment: Patient signed out pending further rehydration and reassessment of labs for dehydration/decreased renal function. Last updated by Liam Markham NP at 05/20/21 23:43
--- NOTE | 2021-05-20 23:18 | DI.VRAD_ITS ---
PROCEDURE INFORMATION: Exam: CT Abdomen And Pelvis Without Contrast Exam date and time: 05/20/2021 10:51 PM Age: 71 years old Clinical indication: Abdominal pain; Patient HX: Epigastric pain, inability to tolerate po intake TECHNIQUE: Imaging protocol: Computed tomography of the abdomen and pelvis without contrast. COMPARISON: CT CHEST PE CTA 01/30/2021 2:07 PM FINDINGS: Liver: Normal. No mass. Gallbladder and bile ducts: The gallbladder is moderately distended but otherwise unremarkable potentially reflecting a fasting gallbladder. Pancreas: Normal. No ductal dilation. Spleen: Normal. No splenomegaly. Adrenal glands: Normal. No mass. Kidneys and ureters: Hemorrhagic left renal cyst measures 1 cm Stomach and bowel: Unremarkable. No obstruction. No mucosal thickening. Appendix: No evidence of appendicitis. Intraperitoneal space: Unremarkable. No free air. No significant fluid collection. Vasculature: Prominent atherosclerotic calcifications of the abdominal aorta are noted. Lymph nodes: Unremarkable. No enlarged lymph nodes. Urinary bladder: Urinary bladder wall thickening may reflect cystitis in the correct clinical setting Reproductive: Unremarkable as visualized. Bones/joints: Unremarkable. No acute fracture. Soft tissues: Unremarkable. IMPRESSION: The gallbladder is moderately distended but otherwise unremarkable potentially reflecting a fasting gallbladder. Sonography recommended however if right upper quadrant symptoms are present Dictated and Authenticated by: Joe Valles MD. Ordering:DIRK Wheeler MD
[2021-05-20] MEDS: Normal Saline 500 ML 250 ML IV (23:28)
--- NOTE | 2021-05-20 23:43 | NUR.NOTE ---
Referral [facility]ed to [facility] to f/u sooner rather than later for persistent epigastric pain. Pt has been seen by Dr. Rivera previously.Nursing Note:
[2021-05-21 00:36] LABS: Anion Gap 13.8 mmol/L (3-11); BUN 71 mg/dL (7-18); CO2 27.2 mmol/L (21.0-32.0); Calcium 8.2 mg/dL (8.5-10.1); Chloride 106 mmol/L (98-107); Glucose 85 mg/dL (74-106); Potassium 4.3 mmol/L (3.5-5.1); Sodium 147 mmol/L (136-145)
[2021-05-21 01:00] VITALS: BP 138/62; PULSE 60; RESP 16; O2SAT 100
== END 2021-05-21 01:08 | disposition home or self-care (01) ==
PROVIDERS: Nurse Practitioner Family; Emergency Provider Student in an Organized Health Care Education/Training Program; PCP Nurse Practitioner
DX: R10.13 Epigastric pain (principal)
CPT/HCPCS: 36415; 80048; 80053; 83690; 96361; 96374; 99284; 74176; 83735; 85025

== ENCOUNTER 2021-05-29 14:18 | Outpatient (CLI) | payer OTHER, SELFPAY ==
[2021-05-29 15:30] LABS: Source Nasal/Nares
[2021-05-29 23:37] LABS: COVID-19 PCR Negative (Negative)
== END 2021-05-29 14:19 | disposition home or self-care (01) ==
LOC: LBO 14:18
PROVIDERS: PCP Nurse Practitioner; Visit Provider Surgery
DX: Z20.822 Contact with and (suspected) exposure to COVID-19 (principal)
CPT/HCPCS: 87635

== ENCOUNTER 2021-05-30 12:28 | Inpatient (IN) | payer MEDICARE, MEDICAID, SELFPAY ==
--- NOTE | 2021-05-29 15:24 | HPE_ITS ---
Date of service: 05/30/21 Assessment and Plan Assessment and plan (1) Abnormal weight loss: Status: Acute Assessment and plan: -pt had a WA in 8 yrs ago. No stroke. He had a CABG and carotid stent He is on daily asa. smoker+ DM+ no problems w/ anesthesia in the past. Informed consent is obtained for the procedural (explained in simple layman's terms that the pt and/or family could understand) explaining risks vs benefits and alternatives to the procedure and consequences if we do not do the procedure and need/rational for the procedure. Risks include but are not limited to: bleeding, infection, perforation of esophagus, stomach, colon, small intestines, bronchus or trachea, or PTX. This would necessitate emergency surgery to repair the damage w/ possible ostomy; and other associated complications w/ the required surgery. Also complications of anesthesia including aspiration, WA/CVA/. pt was exposed to Covid. He did have covid in 2020. His recent covid test was negative. (2) Acute renal insufficiency: Status: Acute (3) Vertebral artery disease: Status: Acute (4) Pulmonary nodule: Status: Acute (5) Heart disease: Status: Acute (6) GERD (gastroesophageal reflux disease): Status: Chronic (7) Smoker: Status: Resolved (8) Cerebrovascular disease: Status: Acute (9) Abdominal pain, epigastric: Status: Acute (10) Dysphagia: Status: Acute Qualifiers: Dysphagia type: unspecified Qualified Code(s): R13.10 - Dysphagia, unspecified History of Present Illness Consults Consult date: 05/30/21 Narrative: Mr. Teixeira is a 71-year-old gentleman who is currently incarcerated who was sent by their medical team for an upper endoscopy. He was seen in the emergency department in February for chest pain. Cardiac work-up was negative and it was felt that his pain was due to his GERD and dysphagia. The patient had a CT a few months prior to that which was negative for cancer or PE. The patient states that he is having a hard time drinking liquids or eating any solids for the last 4 months. He feels like the liquid or the food is getting lodged in his throat. When he eats he has pain all the way down into his epigastric area. He sometimes will have pain in the entire upper abdomen. He was on pantoprazole 40 mg daily according to the records that we received. The patient tells me that he has stopped taking it because it does not work. Patient also complains of a 14 pound weight loss. He did have a Cologuard test 4 months ago which was negative. His past medical history is significant for a triple bypass in 2015 as well as a left carotid stent placement about 3 to 4 years ago. Current symptoms: Reports dysphagia, Denies cough and Reports heartburn Prior treatment: proton pump inhibitors he tired Prilosec adn pepcid adn didn't help. He ws a smoker. so this has been going on for 7- months Has a burning feeling in epigastric area, denies chest pain or sob. PT states he can't swallow anything- just comes right back up. He is loosing wt. He has tried pepcid and prilosec, neither of these helped. Also was taking scopalamine patch for nausea- this did not help either. No problems w/ anesthesia in the past. Planning [facility]. [facility] All Active Problems Abnormal weight loss (Acute) Acute renal insufficiency (Acute) Vertebral artery disease (Acute) Light-headed feeling (Acute) Pulmonary nodule (Acute) Chest pain (Acute) Heart disease (Acute) GERD (gastroesophageal reflux disease) (Chronic) Cerebrovascular disease (Acute) Dysphagia (Acute) Murmur, heart (Acute) Abdominal pain, epigastric (Acute) Medical History Cataracts, bilateral Hypertension SARS-CoV-2 positive (~01/2021) Asymptomatic Surgical History History of common carotid artery stent [place] [facility] [place] of coronary artery bypass graft x 3 2013- [facility]/[place], [place] Social History Smoking/Tobacco Use Status: Former Tobacco Use Smoking risk assessment performed?: Yes Alcohol Intake: former Drug use: Never Substance use type: does not use Do you feel safe at home: Yes Do you feel safe in your relationship?: Yes Additional Social history: [employer] inmate Meds Allergies and Home Medications Allergies Allergy/AdvReac Type Severity Reaction Status Date / Time codeine AdvReac Intermediate Nausea Unverified 05/30/21 10:43 Home Medications Medication Instructions Recorded Confirmed Type aspirin [Aspir-81] 81 mg PO DAILY 10/21/15 05/30/21 History carvedilol 12.5 mg PO BID 03/02/21 05/30/21 History amlodipine 5 mg tablet 5 mg PO DAILY 03/14/21 05/30/21 History atorvastatin 80 mg tablet 80 mg PO DAILY 03/14/21 05/30/21 History multivitamin 1 tab PO DAILY 03/14/21 05/30/21 History nitroglycerin 0.4 mg sublingual 0.4 mg SUBLINGUAL Q5M PRN 03/14/21 05/30/21 History tablet hydrochlorothiazide 25 mg tablet 25 mg PO DAILY 04/07/21 05/30/21 History ondansetron HCl 4 mg PO TID PRN PRN 05/20/21 05/30/21 History pantoprazole [Protonix] 40 mg PO DAILY 05/20/21 05/30/21 History famotidine [Pepcid] 20 mg PO BID #56 tab 05/21/21 05/30/21 Rx docusate sodium [Colace] 100 mg PO BID 05/26/21 05/30/21 History scopolamine base 1 mg TOPICAL Q3D PRN 05/26/21 05/30/21 History
--- NOTE | 2021-05-29 15:27 | ENDO_ITS ---
Date of service: 05/30/21 Endoscopy Report DATE OF PROCEDURE: 05/30/21 PRE-OP DIAGNOSIS: dysphagia/gerd /wt loss POST-OP DIAGNOSIS: other (Obstructing esophageal cancer) SURGEON: Leatha Mitchell ANESTHESIA TYPE: General LMA/ETT PATHOLOGY: other COMPLICATIONS: None DISPOSITION: PACU PROCEDURE DESCRIPTION: After informed consent was obtained the patient was take to the procedure room and placed in a supine position. Monitors were applied and a time out was done. The patients name, date of , procedure type, juan r rgies to medications and metal in their body was reviewed. A bite block was placed and the patient was sedated. Once anesthesia was administered, the gastroscope was advanced through the oropharynx which was grossly normal into the esophagus. The proximal and mid-esophagus show a whitish plaque. In the distal esophagus there is an obstructing mass. I am not able to pass scope beyond the mass. It is quite friable and bleeds readily. it does appear to be a cancer. It completely fills the lumen. Mult. biopsies were taken. There is a thick whitish plaque that coated the distal third of the esophagus . There are still food remnants within the esophagus . The distal esophagus is dilated. the scope was removed and the patient abated and taken to PACU Follow up: Patient will be admitted for hydration
--- NOTE | 2021-05-29 15:27 | W.PM.DSUDISC ---
Discharge Plan Disposition Patient Disposition: OTHER Condition: Good Discharge Details Reason For Visit: stomach scope Attending Provider: Leatha Mitchell Primary Care Provider: Sarah Oshea [place] Meds and New Rx's Prescriptions: No Action atorvastatin 80 mg tablet 80 mg PO DAILY RF: 0 amlodipine 5 mg tablet 5 mg PO DAILY RF: 0 nitroglycerin [Nitrostat] 0.4 mg tablet, sublingual 0.4 mg sublingual Q5M PRNRF: 0 multivitamin Tablet 1 tab PO DAILY RF: 0 hydrochlorothiazide 25 mg tablet 25 mg PO DAILY RF: 0 aspirin [Aspir-81] 81 MG tablet,delayed release (DR/EC) 81 mg PO DAILY RF: 0 carvedilol 12.5 mg tablet 12.5 mg PO BID RF: 0 docusate sodium [Colace] 100 mg Capsule 100 mg PO BID RF: 0 scopolamine base 1 mg over 3 days Patch 3 Day 1 mg topical Q3D PRNRF: 0 ondansetron HCl 4 mg Tablet 4 mg PO TID PRN PRNRF: 0 pantoprazole [Protonix] 40 mg Tablet,Delayed Release (Dr/Ec) 40 mg PO DAILY RF: 0 famotidine [Pepcid] 20 mg tablet 20 mg PO BID Qty: 56 RF: 0 Discharge Orders Discharge Orders: Discharge Order (Routine); Ordered 05/29/21 Ordered By: Leatha Mitchell DS: Diagnosis Discharge Diagnosis (1) GERD (gastroesophageal reflux disease): Status: Chronic (2) Chest pain: Status: Acute (3) Smoker: Status: Resolved (4) Abdominal pain, epigastric: Status: Acute (5) Abnormal weight loss: Status: Acute
[2021-05-30] VITALS (10 sets, daily range): BP systolic 100–121; BP diastolic 57–95; PULSE 59–84; RESP 11–19; TEMP 35.7–37.1; O2SAT 94–99; BMI 19.8
--- NOTE | 2021-05-30 10:59 | W.ANESPRE ---
General Info Date of Service Date Performed: 05/30/21 Height: 5 ft 7 in Weight: 57.4 kg Body Mass Index (BMI): 19.8 Surgical Procedure: Operation Date: 05/30/21 10:05 Proposed Procedures Side Surgeon p Gastroscopy Leatha Mitchell, DO Meds Allergies and Home Medications Allergies Allergy/AdvReac Type Severity Reaction Status Date / Time codeine AdvReac Intermediate Nausea Unverified 05/30/21 10:43 Home Medication Medication Instructions Recorded aspirin [Aspir-81] 81 mg PO DAILY 10/21/15 carvedilol 12.5 mg PO BID 03/02/21 amlodipine 5 mg tablet 5 mg PO DAILY 03/14/21 atorvastatin 80 mg tablet 80 mg PO DAILY 03/14/21 multivitamin 1 tab PO DAILY 03/14/21 nitroglycerin 0.4 mg sublingual 0.4 mg SUBLINGUAL Q5M PRN 03/14/21 tablet hydrochlorothiazide 25 mg tablet 25 mg PO DAILY 04/07/21 ondansetron HCl 4 mg PO TID PRN PRN 05/20/21 pantoprazole [Protonix] 40 mg PO DAILY 05/20/21 famotidine [Pepcid] 20 mg PO BID #56 tab 05/21/21 docusate sodium [Colace] 100 mg PO BID 05/26/21 scopolamine base 1 mg TOPICAL Q3D PRN 05/26/21 Current Visit Medications: Current Medications Generic Name Dose Route Start Last Admin Trade Name Freq PRN Reason Stop Dose Admin Hyoscyamine Sulfate 0.125 mg 05/29/21 15:26 Hyoscyamine 0.125 Mg Sl/Oral/Chew SL DIRECTED PRN Ringer's Solution 1,000 mls @ 80 mls/hr 05/30/21 06:00 IV 06/28/21 23:59 INFUSION [facility] IV Miscellaneous Supplies 1 each 05/30/21 06:00 Iv Access IV 06/28/21 23:59 DIRECTED [facility] Ondansetron HCl 4 mg 05/29/21 15:26 Ondansetron 4 Mg/2 Ml Vial IVP Q4H PRN PRN Nausea / Vomiting Sodium Chloride 0 ml 05/30/21 06:00 Normal Saline Flush 10 Ml Syr IV 06/28/21 23:59 PRN PRN Sodium Chloride 0 ml 05/30/21 06:00 Normal Saline 10 Ml Vial IJ 06/28/21 23:59 DIRECTED PRN Sterile Water 0 ml 05/30/21 06:00 Water,Injection,Sterile 10 Ml Vial IJ 06/28/21 23:59 DIRECTED PRN PFSH Active Problems Active Problems: Problem Status Onset Code Abnormal weight loss R63.4 Acute renal insufficiency N28.9 Vertebral artery disease I77.9 Light-headed feeling R42 Pulmonary nodule R91.1 Chest pain R07.9 Heart disease I51.9 GERD (gastroesophageal reflux disease) K21.9 Smoker F17.200 Cerebrovascular disease I67.9 Dysphagia R13.10 Murmur, heart R01.1 Abdominal pain, epigastric R10.13 Medical History Medical History Cataracts, bilateral Hypertension SARS-CoV-2 positive (~01/2021) Asymptomatic Surgical History Surgical History [place] [facility] [place] artery bypass graft x 3 2014- [facility]/[place], [place] Tobacco Smoking/Tobacco Use Status: Former Tobacco Use Alcohol Alcohol Intake: former Substance Use Substance use: Never Substance use type: does not use Vital Signs and Lab Results Vital Signs Most Recent Vital Signs in EMR: Most Recent Vital Signs Temp Pulse Resp BP Pulse Ox 36.4 C L 84 16 114/95 H 99 05/30/21 10:45 05/30/21 10:45 05/30/21 10:45 05/30/21 10:45 05/30/21 10:45 Lab Results Blood Type / Crossmatch: No Data to Display Complete Blood Count: White Blood Count 10.64 10^3/uL (4.4-10.8) 05/20/21 22:00 05/20/21 Red Blood Count 4.55 10^6/uL (4.36-5.78) 05/20/21 22:00 05/20/21 Hemoglobin 14.7 g/dL (13.5-17.5) 05/20/21 22:00 05/20/21 Hematocrit 45.7 % (40.0-50.0) 05/20/21 22:00 05/20/21 Platelet Count 186 10^3/uL (130-400) 05/20/21 22:00 05/20/21 Complete Metabolic Panel: Sodium Level 147 mmol/L (136-145) H 05/21/21 00:20 05/21/21 Potassium Level 4.3 mmol/L (3.5-5.1) 05/21/21 00:20 05/21/21 Chloride Level 106 mmol/L (98-107) 05/21/21 00:20 05/21/21 Carbon Dioxide Level 27.2 mmol/L (21.0-32.0) 05/21/21 00:20 05/21/21 Blood Urea Nitrogen 71 mg/dL (7-18) H 05/21/21 00:20 05/21/21 Creatinine 2.0 mg/dL (0.70-1.30) H 05/21/21 00:20 05/21/21 Estimated GFR/1.73 m2 33.20 (mL/min/1.73m2) 05/21/21 00:20 05/21/21 Magnesium Level 2.4 mg/dL (1.8-2.4) 05/20/21 22:00 05/20/21 Calcium Level 8.2 mg/dL (8.5-10.1) L 05/21/21 00:20 05/21/21 Albumin 4.2 g/dL (3.4-5.0) 05/20/21 22:00 05/20/21 Glucose Level 85 mg/dL (74-106) 05/21/21 00:20 05/21/21 Liver Function Panel: Alanine Aminotransferase (ALT/SGPT) 18 U/L (16-63) 05/20/21 22:00 05/20/21 Aspartate Amino Transf (AST/SGOT) 23 U/L (15-37) 05/20/21 22:00 05/20/21 Coagulation Panel: No Data to Display Cardiac Panel: No Data to Display Arterial Blood Gas: No Data to Display Venous Blood Gas: No Data to Display Pancreas Panel: Lipase 121 U/L (73-393) 05/20/21 22:00 05/20/21 Thyroid Panel: No Data to Display Infectious Disease: Coronavirus (COVID-19)(PCR) Negative (Negative) 05/29/21 14:54 05/29/21 Coronavirus 2019 Source Nasal/Nares 05/29/21 14:54 05/29/21 Blood Cultures: No Data to Display Toxicology Panel: No Data to Display Imaging and Studies Imaging and Studies Study information below may be from another EMR and interpreted by another provider. Please see original notes in EMR for more complete details. EKG Summary: Conclusion Sinus rhythm...normal P axis, V-rate 60- 99 Probable left atrial enlargement...P >50mS, <-0.10mV V1 Left ventricular hypertrophy...multiple LVH criteria Carotid Artery Summary:: IMPRESSION: 1. 50-69 percent stenosis bilaterally in the internal carotid arteries. 2. Antegrade flow is visible in both vertebral arteries. Anesthesia Assessment and Plan Anesthesia History Personal History: No History of Anesthesia Complications Family History: No Family History of Anesthesia Complications Exercise Tolerance Exercise Tolerance: Metabolic Equivalents<4 Cardiac & Pulmonary Exam Cardiac Exam: Normal S1/S2 Heart Sounds Pulmonary Exam: Clear Bilateral Breath Sounds Implantable Cardiac Device Does patient have a Pacemaker or an ICD?: No Airway Exam Known Difficult Airway: No Mallampati Class: 2 Mouth Opening: Normal (> 3cm) Thyromental Distance: Greater than 3 cm Neck Range of Motion: Full ROM Neck Circumference: Normal Teeth Condition: Edentulous (except one broken lower left canine) ASA Classification ASA Score: ASA 3 Emergency Case?: No NPO Status NPO Status: NPO Clears >2 hours, Solids >8 hours Anesthesia Plan Resuscitation Status: Full Code Anesthesia Technique: General Anesthesia Airway Planned: Endotracheal Tube (RSI) Monitors Used: Standard Monitors
[2021-05-30] MEDS: Lactated Ringers 1,000 ML 80 ML IV (11:07)
--- NOTE | 2021-05-30 12:14 | ESO_PTH ---
PATIENT: Tremaine Teixeira LOC: [id number]#:[id number] AGE/SX: 71/M ROOM: RE05/30/[address]: Leatha Mitchell : 1950 BED: A DIS: 06/05/2021 SPEC #: [id number] RECD: 05/30/21 12:58 STATUS: ANALY REAlok #: [id number] SUSIE: 05/30/21 12:[address]: Leatha Mitchell DEPT: Surgical Specimen RECD BY: Marian Stevens ENTERED: 05/30/21 12:59 SP TYPE: Kareno RITA DR: Jose Bobo, Sarah Carreno Tissues: 1 - ESOPHAGUS BIOPSY 2 - ESOPHAGUS BIOPSY Procedures: GROSS AND MICRO LEVEL 4 Comments: [id number]
[2021-05-30 13:02] LABS: Abs Immature Grans 0.05 10^3/uL (0.0-0.06); Absolute Basophil Count 0.07 10^3/uL (0.0-0.2); Absolute Lymphocyte Count 2.41 10^3/uL (1.2-3.4); Absolute Monocyte Count 1.09 10^3/uL (0.1-0.8); Basophils % 0.5; Eosinophils % 0.5; HGB 15.5 g/dL (13.5-17.5); Immature Grans % 0.4; Lymphocytes % 18.5; MCH 33.2 pg (27.0-33.0); MCV 100.6 fL (80-95); Monocytes % 8.4; Neutrophils % 71.7; Nucleated RBC 0 %; Platelet Count 155 10^3/uL (130-400); RBC 4.67 10^6/uL (4.36-5.78); RDW 13.1 % (11.8-14.1); RDW-SD 47.9 fL; WBC 13.03 10^3/uL (4.4-10.8)
[2021-05-30 13:03] LABS: Absolute Eosinophil Count 0.07 10^3/uL (0.0-0.7); Absolute Neutrophil Count 9.34 10^3/uL (1.2-6.7)
[2021-05-30 13:12] LABS: ALT 19 U/L (16-63); AST 24 U/L (15-37); Albumin 3.7 g/dL (3.4-5.0); Alkaline Phosphatase 182 U/L (46-116); Bilirubin, Total 1.1 mg/dL (0.2-1.0); CREATININE 2.7 mg/dL (0.70-1.30); Calcium 9.7 mg/dL (8.5-10.1); Chloride 105 mmol/L (98-107); Estimated GFR 23.48 (mL/min/1.73m2); Glucose 117 mg/dL (74-106); Potassium 3.4 mmol/L (3.5-5.1); Sodium 149 mmol/L (136-145); Total Protein 8.3 g/dL (6.4-8.2)
[2021-05-30 13:33] LABS: BUN 84 mg/dL (7-18)
--- NOTE | 2021-05-30 14:51 | W.ANESPOSTOP ---
Postoperative Evaluation Date, Time and Location Date Performed: 05/30/21 Time Performed: 14:52 Patient Location: PACU Vital Signs Most Recent Imported Vital Signs: Most Recent Vital Signs Temp Pulse Resp BP Pulse Ox 35.7 C L 68 14 115/72 96 05/30/21 13:29 05/30/21 13:29 05/30/21 13:29 05/30/21 13:29 05/30/21 13:29 Pain Score Most Recent Pain Score: Most Recent Pain Score Pain Level 5 05/30/21 13:29 Assessment Mental Status: Awake (Alert & Oriented to Patient Baseline) Airway and Respiratory Function: Patent airway with normal (patient baseline) respiratory exam Cardiovascular Function: Hemodynamically Stable Hydration Status: Adequately Hydrated Nausea & Vomiting: No Nausea or Vomiting Pain: Pt. Denies Any Pain Peripheral Nerve Block: Patient did not receive a nerve block Postoperative Comments:: Seen in PACU earlier
[2021-05-30] MEDS: Lactated Ringers 1,000 ML 125 ML IV (15:04)
[2021-05-30] MEDS: FAMOTIDINE 20 MG/50 ML BAG 200 MG IVPB (15:05)
[2021-05-30] MEDS: MORPHine 2 MG/ML SYR IVP ×3 (15:07→22:01)
[2021-05-30] MEDS: Enoxaparin 30 MG/0.3 ML SYR SC (15:10)
--- NOTE | 2021-05-30 15:50 | MCONE_ITS ---
Date of service: 05/30/21 Time of Service: 15:50 Assessment and Plan Assessment and plan (1) Esophageal cancer: Status: Acute Assessment and plan: Defer to surgical team, but anticipate that the patient is going to at a minimum require a G tube. (2) Dysphagia: Status: Acute Assessment and plan: As above Qualifiers: Dysphagia type: unspecified Qualified Code(s): R13.10 - Dysphagia, unspecified (3) Dehydration: Status: Acute Assessment and plan: As evidenced by hypernatremia and MARQUITA on CKD. Change IVF to half normal saline w/ potassium and monitor Sodiums/Cr, I/O, daily weights. (4) Acute kidney injury superimposed on chronic kidney disease: Status: Acute Assessment and plan: As above. Suspect prerenal due to dehydration. 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 Obtain CXR. Would benefit from CT chest/abdomen/pelvis. (6) Heart disease: Assessment and plan: aspirin, statin on hold. Will give beta ruthy IV and monitor on tele. (7) Hypertension: Assessment and plan: As above (8) Hypernatremia: Status: Acute Assessment and plan: As above - change IVF (9) Hypokalemia: Status: Acute Assessment and plan: Replete, check magnesium (10) DVT prophylaxis: Status: Acute Assessment and plan: SC enoxaparin History of Present Illness History of Present Illness Chief Complaint: Request for help with general medical management; the patient is NPO Narrative: Mr Teixeira is a 71 year old male with PMHx of CAD s/p CABG x 3, HTN, CKD 3, GERD, tobacco abuse, who had an EGD today by Dr Mitchell for dysphagia, GERD, and unintentioanl weight loss x 30 lbs in 6 months, and was found to have an obstructing esophageal mass, likely cancer. Hospitalists were consulted to help with management of his medical conditions since he is NPO. The patient states that he is interested in getting this treated as aggressively as it can be: whatever it takes. He is interested in a feeding tube. He states that he hasn't been able to eat and drink for weeks/months. He has been having epigastric pain, which is now controlled. He has also had a cough productive of white sputum for months. Review of Systems All systems reviewed & are unremarkable except as noted in HPI and below PFSH All Active Problems (Updated 05/30/21 @ 16:37 by Luz Marina Melara MD) Productive cough (Acute) DVT prophylaxis (Acute) Hypernatremia (Acute) Hypokalemia (Acute) Acute kidney injury superimposed on chronic kidney disease (Acute) Dehydration (Acute) Esophageal cancer (Acute) Abnormal weight loss (Acute) Acute renal insufficiency (Acute) Light-headed feeling (Acute) Chest pain (Acute) Dysphagia (Acute) Abdominal pain, epigastric (Acute) Medical History (Updated 05/30/21 @ 16:37 by Luz Marina Melara MD) Cataracts, bilateral Cerebrovascular disease CKD (chronic kidney disease) stage 3, GFR 30-59 ml/min GERD (gastroesophageal reflux disease) Heart disease Hypertension Murmur, heart Pulmonary nodule SARS-CoV-2 positive (~01/2021) Asymptomatic Smoker Vertebral artery disease Surgical History [place] common [place] [facility] [place] coronary artery bypass graft x 3 2014[place], [place] Family History (Updated 05/30/21 @ 16:37 by Luz Marina Melara MD) Mother Heart disease Diabetes Hypertension Maternal Grandmother Stroke Social History Smoking/Tobacco Use Status: Former Tobacco Use Smoking risk assessment performed?: Yes Alcohol Intake: former Drug use: Never Substance use type: does not use Do you feel safe at home: Yes Do you feel safe in your relationship?: Yes Additional Social history: [employer] inmate Exam Narrative Exam Narrative: General: Pleasant cachectic middle-aged male who is wearing sunglasses; two guards in the room (from care home) Neurological: No focal deficits Psychiatric: appropriate speech pattern/content Skin: visible skin intact HEENT: Atraumatic, normocephalic, EOMI, dry MM, no lymphadenopathy, goiter or JVD Cardiovascular: RRR, no m/r/g Lungs: CTAB Gastrointestinal: soft, tender in epigastrium,nondistended Genitourinary: deferred Extremities: no edema. Handcuffed to bed rails Results Last Vital Signs Temp 35.7 C L 05/30/21 13:29 Pulse 68 05/30/21 13:29 Resp 14 05/30/21 13:29 BP 115/72 05/30/21 13:29 Pulse Ox 96 05/30/21 13:29 Labs Result diagrams: 05/30/21 12:48 05/30/21 12:48 Labs: Laboratory Results - last 24 hr 05/30/21 05/30/21 12:48 12:48 WBC 13.03 H RBC 4.67 Hgb 15.5 Hct 47.0 MCV 100.6 H MCH 33.2 H MCHC 33.0 RDW 13.1 Plt Count 155 MPV Immature Gran % 0.4 Neutrophils % 71.7 Lymphocytes % 18.5 Monocytes % 8.4 Eosinophils % 0.5 Basophils % 0.5 Nucleated RBC % 0 Absolute Neutrophils 9.34 H Absolute Lymphocytes 2.41 Absolute Monocytes 1.09 H Absolute Eosinophils 0.07 Absolute Basophils 0.07 Sodium 149 H Potassium 3.4 L Chloride 105 Carbon Dioxide 32.0 Anion Gap 12.0 H BUN 84 H* Creatinine 2.7 H Estimated GFR/1.73 m2 23.48 Glucose 117 H Calcium 9.7 Total Bilirubin 1.1 H AST 24 ALT 19 Alkaline Phosphatase 182 H Total Protein 8.3 H Albumin 3.7
--- NOTE | 2021-05-30 16:24 | W.PM.HP.N ---
Date of service: 05/30/21 Time of Service: 16:25 Assessment and Plan Assessment and plan (1) Acute kidney injury superimposed on chronic kidney disease: Status: Acute (2) Dehydration: Status: Acute (3) Esophageal cancer: Status: Acute Assessment and plan: -Complete obstruction -Patient admitted for hydration -Hospitalist consulted for medical management -We will place PICC line and start TPN in a.m. -Awaiting improvement of GFR so we can do contrast CT scans -This will help us to determine staging and further therapy. I doubt patient will be a surgical candidate and would likely require chemo will consult with [place] [facility] [place] mins spent in counseltation today This document was created using voice activated software and may contain errors (4) Abnormal weight loss: Status: Acute (5) Acute renal insufficiency: Status: Acute (6) Cataracts, bilateral: (7) Cerebrovascular disease: (8) CKD (chronic kidney disease) stage 3, GFR 30-59 ml/min: (9) GERD (gastroesophageal reflux disease): (10) Heart disease: (11) Hypertension: (12) Pulmonary nodule: (13) Smoker: (14) Vertebral artery disease: (15) Atherosclerosis: Status: Acute (16) COPD (chronic obstructive pulmonary disease) with emphysema: Status: Acute (17) Vertebral artery stenosis: Status: Acute History of Present Illness Narrative: Patient is a 31-year-old male with history of vascular disease. He has had a four-vessel CABG, stenting of the carotid, and stenting of the subclavian CT angio from January 2021: Aortic arch anatomy: Sternotomy wires are noted. There is significant atherosclerotic disease in the aortic arch. There is an endovascular stent noted within the subclavian artery which appears patent. Moderate atherosclerotic involvement seen at the origin of the left common carotid artery. Advanced atherosclerotic involvement of the origin of the brachiocephalic artery, with both soft and hard calcified plaque at this level. Anterior circulation: No significant stenosis at the origin of the right common carotid artery off of the brachiocephalic. There is heavily calcified plaque at the right carotid bifurcation and proximal right ICA with approximately 70 percent stenosis at this level. Above this level the right ICA is patent in the upper neck and skull base. Left common carotid artery exhibits moderate stenosis at its origin. Mild plaque along medial wall of the ascending left common carotid artery. There is posterior wall calcified plaque at the left carotid bifurcation. Approximately 40 percent stenosis in the proximal left ICA. Above this level the left in the internal carotid artery is patent in the upper neck and skull base. Posterior circulation: The right vertebral artery is dominant. It arises in conventional fashion off of the right subclavian artery. There is a mild stenosis at its origin. This vessel ascends in the foramen transverse area with a luminal diameter of 3.8 millimeters and no evidence of intraluminal thrombus nor dissection and this vessels the main contributor to the formation of the basilar artery at the skull base. The left vertebral artery is occluded at its origin.. This may be related to presence of the stent in the proximal subclavian artery. A thin left vertebral artery is reconstituted in foramen transverse area in the upper neck and does contribute to the formation of the basilar artery at the skull base. He presents today for a EGD for complaints of chest pain and inability to swallow and a recent 30 pound weight loss. He was found to have an esophageal mass with complete occlusion of the esophagus. He had PPD that was noncontrasted on 05/20/2021. And described as a hiatal hernia. Currently his creatinine is 2.7. His creatinine has been elevated for quite some time, although I think it is from a combination of renal artery stenosis and chronic dehydration. He is also on a diuretic. He has a history of extensive complex tobacco abuse. We need to get CT scan for further staging so we can decide on course of treatment. Patient has lost a significant amount of weight. He did have a CT of the chest and CTA of the neck in January 2021. There is have significant emphysematous change. I did not see any lesions. The recent CT of the abdomen the noncontrast neck. There is a nodule seen on the kidney. I do not see any gross lesions in the liver. Review of Systems All systems reviewed & are unremarkable except as noted in HPI and below PFSH All Active Problems (Updated 05/31/21 @ 00:07 by Leatha Mitchell DO) Vertebral artery stenosis (Acute) COPD (chronic obstructive pulmonary disease) with emphysema (Acute) Atherosclerosis (Acute) Productive cough (Acute) DVT prophylaxis (Acute) Hypernatremia (Acute) Hypokalemia (Acute) Acute kidney injury superimposed on chronic kidney disease (Acute) Dehydration (Acute) Esophageal cancer (Acute) Abnormal weight loss (Acute) Acute renal insufficiency (Acute) Light-headed feeling (Acute) Chest pain (Acute) Dysphagia (Acute) Abdominal pain, epigastric (Acute) Medical History Cataracts, bilateral Cerebrovascular disease CKD (chronic kidney disease) stage 3, GFR 30-59 ml/min GERD (gastroesophageal reflux disease) Heart disease Hypertension Murmur, heart Pulmonary nodule SARS-CoV-2 positive (~01/2021) Asymptomatic Smoker Vertebral artery disease Surgical History History of common carotid artery stent placement [place] [facility] History of coronary artery bypass graft x 3 2014- [facility]/[place], [place] Family History Mother Heart disease Diabetes Hypertension Maternal Grandmother Stroke Social History Smoking/Tobacco Use Status: Former Tobacco Use Smoking risk assessment performed?: Yes Alcohol Intake: former Drug use: Never Substance use type: does not use Do you feel safe at home: Yes Do you feel safe in your relationship?: Yes Additional Social history: [employer] inmate Meds Allergies and Home Medications Allergies Allergy/AdvReac Type Severity Reaction Status Date / Time codeine AdvReac Intermediate Nausea Unverified 05/30/21 10:43 Home Medications Medication Instructions Recorded Confirmed Type aspirin [Aspir-81] 81 mg PO DAILY 10/21/15 05/30/21 History carvedilol 12.5 mg PO BID 03/02/21 05/30/21 History amlodipine 5 mg tablet 5 mg PO DAILY 03/14/21 05/30/21 History atorvastatin 80 mg tablet 80 mg PO DAILY 03/14/21 05/30/21 History multivitamin 1 tab PO DAILY 03/14/21 05/30/21 History nitroglycerin 0.4 mg sublingual 0.4 mg SUBLINGUAL Q5M PRN 03/14/21 05/30/21 History tablet hydrochlorothiazide 25 mg tablet 25 mg PO DAILY 04/07/21 05/30/21 History ondansetron HCl 4 mg PO TID PRN PRN 05/20/21 05/30/21 History pantoprazole [Protonix] 40 mg PO DAILY 05/20/21 05/30/21 History famotidine [Pepcid] 20 mg PO BID #56 tab 05/21/21 05/30/21 Rx docusate sodium [Colace] 100 mg PO BID 05/26/21 05/30/21 History scopolamine base 1 mg TOPICAL Q3D PRN 05/26/21 05/30/21 History Exam Const General: cooperative, frail appearing and ill appearing Nutritional Appearance: cachectic and malnourished Orientation: alert, awake and oriented x3 HENMT Head: normal to inspection Ears: hearing grossly impaired Teeth and gingiva: edentulous and poor dentition Resp Effort & Inspection: normal respiratory effort and able to speak in complete sentences Auscultation: clear to auscultation bilaterally Cardio Rate: regular rate Rhythm: regular rhythm GI Palpation: soft and no hernias Percussion: normal to percussion Skin Other: Intact. No break down. Multiple tattoos Extrem General: no clubbing, cyanosis or edema Other: Atrophy Results Labs Result diagrams: 05/30/21 12:48 05/30/21 12:48 Labs: Laboratory Results - last 24 hr 05/30/21 05/30/21 12:48 12:48 WBC 13.03 H RBC 4.67 Hgb 15.5 Hct 47.0 MCV 100.6 H MCH 33.2 H MCHC 33.0 RDW 13.1 Plt Count 155 MPV Immature Gran % 0.4 Neutrophils % 71.7 Lymphocytes % 18.5 Monocytes % 8.4 Eosinophils % 0.5 Basophils % 0.5 Nucleated RBC % 0 Absolute Neutrophils 9.34 H Absolute Lymphocytes 2.41 Absolute Monocytes 1.09 H Absolute Eosinophils 0.07 Absolute Basophils 0.07 Sodium 149 H Potassium 3.4 L Chloride 105 Carbon Dioxide 32.0 Anion Gap 12.0 H BUN 84 H* Creatinine 2.7 H Estimated GFR/1.73 m2 23.48 Glucose 117 H Calcium 9.7 Total Bilirubin 1.1 H AST 24 ALT 19 Alkaline Phosphatase 182 H Total Protein 8.3 H Albumin 3.7 Last Vital Signs Temp 35.7 C L 05/30/21 13:29 Pulse 68 05/30/21 13:29 Resp 14 05/30/21 13:29 BP 115/72 05/30/21 13:29 Pulse Ox 96 05/30/21 13:29
[2021-05-30] MEDS: FLUCONAZOLE 200 MG/100 ML BAG 100 MG IVPB (17:14)
[2021-05-30] MEDS: POTASSIUM CHLORIDE 20 MEQ/100 ML BAG 50 MEQ IVPB (17:14)
--- NOTE | 2021-05-30 17:14 | DI.RAD_ITS ---
Exam(s) XR PORTABLE CHEST AP EXAM: XR PORTABLE CHEST AP CLINICAL HISTORY: productive cough; esophageal cancer TECHNIQUE: 2D digital imaging was performed of the chest. One image was obtained. An AP view was ob tained. COMPARISON: CR XR CHEST 2V PA LATERAL from 03/02/2021 FINDINGS: MEDIASTINUM: Normal. HEART: Normal. Findings of a prior CABG. PULMONARY VASCULATURE: Normal. There is a vascular stent again seen in the superior mediastinum. LUNGS: Clear. PLEURAL SPACE: No pleural effusion or pneumothorax. BONE:Within normal limits for the patient's age. Sternal wires are in place. There is mild curvature of the spine which may be positional. OTHER FINDINGS:Normal. IMPRESSION: No acute pulmonary findings. DATA REPOSITORY: RADIATION DOSE DELIVERED:
--- NOTE | 2021-05-30 17:29 | DI.VRAD_ITS ---
PROCEDURE INFORMATION: Exam: XR Chest Exam date and time: 05/30/2021 4:41 PM Age: 71 years old Clinical indication: Patient HX: Cough, esophegeal CA TECHNIQUE: Imaging protocol: XR of the chest. Views: 1 view. COMPARISON: CR XR CHEST 2V PA LATERAL 03/02/2021 12:20 PM FINDINGS: Tubes, catheters and devices: Again noted are sternal wires which appear intact and well aligned. Findings suggest a vascular stent in the region of the origin of the left subclavian artery, as on prior study. Lungs: There is no pulmonary vascular congestion. The lungs are clear. Pleural spaces: There are no pleural effusions present. There is no evidence of pneumothorax. Heart/Mediastinum: The cardiomediastinal silhouette is within normal limits. Bones/joints: There is mild lower thoracic dextroscoliosis, new since prior study. IMPRESSION: No active cardiopulmonary disease identified. Dictated and Authenticated by: Aba Burdick MD. Ordering:JULIANE Raza MD
[2021-05-30] MEDS: Ondansetron 4 MG/2 ML VIAL IVP (18:32)
[2021-05-30 18:43] LABS: Source Nasal/Nares
[2021-05-30 18:57] LABS: Lab Add On Test DONE
[2021-05-30 19:03] LABS: Magnesium 2.7 mg/dL (1.8-2.4)
[2021-05-30 19:21] LABS: COVID-19 PCR Negative (Negative); Influenza A PCR Negative (Negative); Influenza B PCR Negative (Negative); RSV PCR Negative (Negative)
[2021-05-30] MEDS: Metoprolol 5 MG/5 ML VIAL 2.5 MG IVP (19:58)
[2021-05-30] MEDS: Normal Saline Flush 10 ML SYR IVP ×2 (19:59→22:02)
[2021-05-30] MEDS: POTASSIUM CHLORIDE/D5-0.45NACL 1,000 ML 100 MEQ IV (20:03)
[2021-05-31] VITALS (16 sets, daily range): BP systolic 117–135; BP diastolic 64–74; PULSE 52–65; RESP 12–19; TEMP 35.9–36.5; O2SAT 93–97
[2021-05-31] MEDS: Metoprolol 5 MG/5 ML VIAL 2.5 MG IVP ×4 (02:17→21:08)
[2021-05-31] MEDS: FAMOTIDINE 20 MG/50 ML BAG 200 MG IVPB (02:18)
[2021-05-31] MEDS: Normal Saline Flush 10 ML SYR IVP ×7 (02:18→21:11)
[2021-05-31] MEDS: MORPHine 2 MG/ML SYR IVP ×5 (03:42→21:10)
[2021-05-31] MEDS: POTASSIUM CHLORIDE/D5-0.45NACL 1,000 ML 100 MEQ IV (06:30)
[2021-05-31 07:28] LABS: HGB 14.1 g/dL (13.5-17.5); MCV 99.8 fL (80-95); Platelet Count 143 10^3/uL (130-400); RBC 4.41 10^6/uL (4.36-5.78); RDW 12.9 % (11.8-14.1); WBC 11.66 10^3/uL (4.4-10.8)
[2021-05-31 07:38] LABS: Anion Gap 8.8 mmol/L (3-11); BUN 75 mg/dL (7-18); CO2 32.2 mmol/L (21.0-32.0); CREATININE 2.3 mg/dL (0.70-1.30); Calcium 9.2 mg/dL (8.5-10.1); Chloride 108 mmol/L (98-107); Estimated GFR 28.25 (mL/min/1.73m2); Glucose 190 mg/dL (74-106); Sodium 149 mmol/L (136-145)
[2021-05-31] MEDS: FLUCONAZOLE 200 MG/100 ML BAG 100 MG IVPB (09:45)
[2021-05-31] MEDS: DEXTROSE 5%-WATER 1,000 ML 100 ML IV ×2 (11:51→23:01)
--- NOTE | 2021-05-31 12:18 | PDOC.CMIN ---
- If Service Date Differs Date of service: 05/31/21 Time of Service: 12:18 Care Management Initial Assess REASON FOR HOSPITALIZATION:: Obstructing esophageal cancer PAST MEDICAL HISTORY/PAST SURGICAL HISTORY:: All Active Problems. Vertebral artery stenosis (Acute). COPD (chronic obstructive pulmonary disease) with emphysema (Acute). Atherosclerosis (Acute). Productive cough (Acute). DVT prophylaxis (Acute). Hypernatremia (Acute). Hypokalemia (Acute). Acute kidney injury superimposed on chronic kidney disease (Acute). Dehydration (Acute). Esophageal cancer (Acute). Abnormal weight loss (Acute). Acute renal insufficiency (Acute). Light-headed feeling (Acute). Chest pain (Acute). Dysphagia (Acute). Abdominal pain, epigastric (Acute). Medical History. Cataracts, bilateral. Cerebrovascular disease. CKD (chronic kidney disease) stage 3, GFR 30-59 ml/min. GERD (gastroesophageal reflux disease). Heart disease. Hypertension. Murmur, heart. Pulmonary nodule. SARS-CoV-2 positive (~01/2021). Asymptomatic. Smoker. Vertebral artery disease. Surgical History. History of common carotid artery stent placement. 2017 [facility]. History of coronary artery bypass graft x 3. 2014- [facility]/[place], [place] PREVIOUS FUNCTIONAL STATUS/SOCIAL/FAMILY SUPPORTS:: Tremaine is currently an inmate at [facility] in [facility]. He reported that he has a court date on Saturday06/05/21, and thinks that he may be released. He lives in [place], and plans to live with a friend once he is released. CURRENT FUNCTIONAL STATUS:: CM talked to Tremaine on the phone, as he is a PUI for Covid 19, due to an outbreak at the correction where he is living. Tremaine was pleasant in conversation, although he reported that he wasn't feeling well. CM discussed Palliative care with him, and let him know that he will be seen by Palliative care tomorrow. CM will continue to follow. ADVANCE DIRECTIVES:: None on file. Has patient been provided with info about the portal/API?: Yes Did the patient sign up for the portal?: No CODE STATUS:: Full Code INSURANCE COVERAGE / FINANCIAL ISSUES:: [employer] ([facility] CURRENT HOME/COMMUNITY SERVICES/EQUIPMENT:: Tremaine currently resides at the local correction, where his needs are met. PRIMARY CARE PHYSICIAN:: Sarah Oshea POTENTIAL DISCHARGE NEEDS:: Coordinated return to [facility]. PATIENT/FAMILY EDUCATION NEEDS:: Review discharge instructions and limitations, discussion of self care needs including ask me three and goals of care. ANTICIPATED BARRIERS TO DISCHARGE:: None identified. TRANSPORTATION:: Transport coordianted by [facility]. PLAN:: Anticipate Tremaine will return to the [facility] when medically cleared. Transport will be arranged by the facility. He will follow up with the facility provider and discharge plan of care. CM will continue to follow.
[2021-05-31 12:47] LABS: Sodium 148 mmol/L (136-145)
[2021-05-31] MEDS: FAMOTIDINE 20 MG in Normal Saline 100 ML 204 MG IV (14:43)
--- NOTE | 2021-05-31 16:52 | W.PM.PROGNOT ---
Date of Service Date of service: 05/31/21 Time of Service: 16:52 Subjective Subjective Interval history since last seen: Hospitalists are following peripherally. Patient is on D5W for hypernatremia. Will continue to follow serial sodiums. Surgery is planning on starting TPN. COVID negative, but is considered a PUI. Would retest on D3 and D5 from admission. Objective Last Vital Signs Temp 36.2 C L 05/31/21 14:41 Pulse 53 L 05/31/21 14:59 Resp 18 05/31/21 14:41 BP 118/64 05/31/21 14:42 Pulse Ox 97 05/31/21 14:41 Laboratory Results - last 24 hr 05/30/21 05/30/21 05/30/21 12:48 12:48 18:25 WBC RBC Hgb Hct MCV MCH MCHC RDW Plt Count MPV Sodium Potassium Chloride Carbon Dioxide Anion Gap BUN Creatinine Estimated GFR/1.73 m2 Glucose Calcium Magnesium 2.7 H COVID-19 Source Nasal/Nares SARS-CoV-2 (PCR) Negative Influenza Type A (PCR) Negative Influenza Type B (PCR) Negative RSV (PCR) Negative Add-On Test Request DONE 05/31/21 05/31/21 05/31/21 06:50 06:50 12:35 WBC 11.66 H RBC 4.41 Hgb 14.1 Hct 44.0 MCV 99.8 H MCH 32.0 MCHC 32.0 RDW 12.9 Plt Count 143 MPV Sodium 149 H 148 H Potassium 4.0 Chloride 108 H Carbon Dioxide 32.2 H Anion Gap 8.8 BUN 75 H Creatinine 2.3 H Estimated GFR/1.73 m2 28.25 Glucose 190 H Calcium 9.2 Magnesium COVID-19 Source SARS-CoV-2 (PCR) Influenza Type A (PCR) Influenza Type B (PCR) RSV (PCR) Add-On Test Request
--- NOTE | 2021-05-31 17:40 | W.PM.PROGNOT ---
Date of Service Date of service: 05/31/21 Time of Service: 17:40 Assessment and Plan Assessment and plan (1) Acute kidney injury superimposed on chronic kidney disease: Status: Acute Assessment and plan: improving slowly (2) Dehydration: Status: Acute Assessment and plan: resolved (3) Esophageal cancer: Status: Acute Assessment and plan: -Complete obstruction -Patient admitted for hydration -Hospitalist consulted for medical management -PICC line placed and TPN ordered. -Awaiting improvement of GFR so we can do contrast CT scans -This will help us to determine staging and further therapy. I doubt patient will be a surgical candidate and would likely require chemo will consult with oncology at [facility] [place] (4) Abnormal weight loss: Status: Acute (5) Cerebrovascular disease: (6) CKD (chronic kidney disease) stage 3, GFR 30-59 ml/min: (7) GERD (gastroesophageal reflux disease): Assessment and plan: contninue with pepcid (8) Hypertension: (9) Pulmonary nodule: (10) Smoker: (11) Vertebral artery disease: (12) Atherosclerosis: Status: Acute (13) COPD (chronic obstructive pulmonary disease) with emphysema: Status: Acute (14) Vertebral artery stenosis: Status: Acute Subjective Subjective Interval history since last seen: Mrs Teixeira is doing OK. He complains of some epigastric pain. He would like a popsicle. Explained that I do not want him to aspirate. He can have a melted popsicle to place the swabs into. Exam Const General: comfortable and no acute distress Orientation: alert and oriented x3 HENMT Head: normocephalic and atraumatic Resp Effort & Inspection: normal respiratory effort Cardio Rate: regular rate Rhythm: regular rhythm GI Palpation: soft Objective Last Vital Signs Temp 97.2 F L 05/31/21 14:41 Pulse 53 L 05/31/21 14:59 Resp 18 05/31/21 14:41 BP 118/64 05/31/21 14:42 Pulse Ox 97 05/31/21 14:41 Laboratory Results - last 24 hr 05/30/21 05/30/21 05/30/21 12:48 12:48 18:25 WBC RBC Hgb Hct MCV MCH MCHC RDW Plt Count MPV Sodium Potassium Chloride Carbon Dioxide Anion Gap BUN Creatinine Estimated GFR/1.73 m2 Glucose Calcium Magnesium 2.7 H COVID-19 Source Nasal/Nares SARS-CoV-2 (PCR) Negative Influenza Type A (PCR) Negative Influenza Type B (PCR) Negative RSV (PCR) Negative Add-On Test Request DONE 05/31/21 05/31/21 05/31/21 06:50 06:50 12:35 WBC 11.66 H RBC 4.41 Hgb 14.1 Hct 44.0 MCV 99.8 H MCH 32.0 MCHC 32.0 RDW 12.9 Plt Count 143 MPV Sodium 149 H 148 H Potassium 4.0 Chloride 108 H Carbon Dioxide 32.2 H Anion Gap 8.8 BUN 75 H Creatinine 2.3 H Estimated GFR/1.73 m2 28.25 Glucose 190 H Calcium 9.2 Magnesium COVID-19 Source SARS-CoV-2 (PCR) Influenza Type A (PCR) Influenza Type B (PCR) RSV (PCR) Add-On Test Request
[2021-05-31 21:13] LABS: Anion Gap 6.9 mmol/L (3-11); BUN 60 mg/dL (7-18); CO2 31.1 mmol/L (21.0-32.0); CREATININE 1.9 mg/dL (0.70-1.30); Calcium 8.7 mg/dL (8.5-10.1); Chloride 108 mmol/L (98-107); Estimated GFR 35.22 (mL/min/1.73m2); Glucose 152 mg/dL (74-106); Potassium 3.5 mmol/L (3.5-5.1); Sodium 146 mmol/L (136-145)
[2021-06-01] VITALS (14 sets, daily range): BP systolic 119–140; BP diastolic 60–75; PULSE 51–62; RESP 12–18; TEMP 35.9–37; O2SAT 92–98
[2021-06-01] MEDS: FAMOTIDINE 20 MG in Normal Saline 100 ML 204 MG IV ×2 (02:39→15:23)
[2021-06-01] MEDS: MORPHine 2 MG/ML SYR IVP ×5 (02:39→22:28)
[2021-06-01] MEDS: Metoprolol 5 MG/5 ML VIAL 2.5 MG IVP ×4 (02:42→22:27)
[2021-06-01] MEDS: Normal Saline Flush 10 ML SYR IVP ×5 (02:43→22:28)
[2021-06-01 02:51] LABS: Sodium 143 mmol/L (136-145)
[2021-06-01] MEDS: Ondansetron 4 MG/2 ML VIAL IVP ×2 (06:41→23:57)
[2021-06-01 07:05] LABS: Abs Immature Grans 0.06 10^3/uL (0.0-0.06); Absolute Basophil Count 0.01 10^3/uL (0.0-0.2); Absolute Eosinophil Count 0.01 10^3/uL (0.0-0.7); Absolute Lymphocyte Count 2.22 10^3/uL (1.2-3.4); Absolute Monocyte Count 1.36 10^3/uL (0.1-0.8); Absolute Neutrophil Count 10.06 10^3/uL (1.2-6.7); Basophils % 0.1; Eosinophils % 0.1; HCT 36.8 % (40.0-50.0); HGB 11.9 g/dL (13.5-17.5); Immature Grans % 0.4; Lymphocytes % 16.2; MCH 32.2 pg (27.0-33.0); MCHC 32.3 % (32.0-36.0); MCV 99.7 fL (80-95); MPV 13.5 fL (8.0-11.0); Monocytes % 9.9; Neutrophils % 73.3; Nucleated RBC 0 %; Platelet Count 114 10^3/uL (130-400); RBC 3.69 10^6/uL (4.36-5.78); RDW 12.6 % (11.8-14.1); RDW-SD 46.1 fL; WBC 13.72 10^3/uL (4.4-10.8)
[2021-06-01 07:30] LABS: Anion Gap 5.4 mmol/L (3-11); BUN 51 mg/dL (7-18); CO2 30.6 mmol/L (21.0-32.0); CREATININE 1.6 mg/dL (0.70-1.30); Calcium 8.5 mg/dL (8.5-10.1); Chloride 107 mmol/L (98-107); Estimated GFR 42.95 (mL/min/1.73m2); Glucose 142 mg/dL (74-106); Sodium 143 mmol/L (136-145)
[2021-06-01 07:35] LABS: Magnesium 2.2 mg/dL (1.8-2.4)
[2021-06-01] MEDS: POTASSIUM CHLORIDE 20 MEQ/100 ML BAG 50 MEQ IVPB (09:20)
[2021-06-01] MEDS: FLUCONAZOLE 200 MG/100 ML BAG 100 MG IVPB (10:02)
--- NOTE | 2021-06-01 10:10 | DI.CT_ITS ---
Exam(s) CT CHEST/ABD/PEL W EXAM: CT CHEST/ABD/PEL W CLINICAL HISTORY: esophageal cancer TECHNIQUE: Imaging Protocol: Axial computed tomography images with coronal and sagittal reformatted images were created and reviewed CONTRAST MATERIAL: Intravenous: Omnipaque 350 Contrast volume:100 mL Oral: Yes COMPARISON: CT CT CHEST PE CTA from 01/30/[address] ABDOMEN PELVIS WO from 05/20/2021 FINDINGS: CHEST: Tracheobronchial tree: Patent where visualized. Pulmonary parenchyma: No suspicious noncalcified pulmonary nodules. There is mild bilateral basilar atelectasis. Moderate centrilobular emphysematous changes are present. Visualized thyroid gland: Unremarkable. Mediastinum and Sharron: No dominant adenopathy or fluid collection. There is diffuse circumferential th ickening of the wall of the distal 8 cm of the esophagus. Proximally the esophagus is dilated and fl uid-filled. The findings likely reflect the patient's known history of esophageal carcinoma. The la rgest mediastinal lymph node is in the subcarinal region and measures 1.5 x 0.7 cm. Varices are seen at the gastroesophageal junction. Pleura: No effusion or pneumothorax. Heart: The heart is not dilated. Coronary artery calcifications are present. No pericardial effusion . Pulmonary arteries: No pulmonary emboli are identified. Aorta: Thoracic aorta non-dilated. Atherosclerosis. Lymph nodes: No significant axillary supraclavicular adenopathy. Soft tissues: Unremarkable. Bones:Within normal limits for the patient's age. Sternal wires are present. There are now lucencie s seen in the T9, T10 and T11 vertebral bodies. These were not present on the CT scan of the chest f rom 01/30/2021. ABDOMEN: Liver: Normal density. There are now multiple peripherally enhancing masses in the liver. The larges t is in the superior segment of the right lobe of the liver and measures 1.9 cm. Portal, Superior Mesenteric, and Splenic Veins: Unremarkable. Gallbladder and Biliary Tract: No radiodense calculus or dilation. Pancreas: Normal density, no abnormal calcifications or inflammatory process. Spleen: Normal. Adrenals: No masses seen. Kidneys: Normal size, contour and axis. No radiodense stones or obstructive uropathy. There is a stab le hyperdense cyst on the left kidney. Abdominal Aorta: Abdominal portion non-dilated. Atherosclerosis. Bowel: No obstruction or bowel wall thickening. No evidence of appendicitis. Peritoneal Cavity: No ascites, collection or mesenteric inflammatory response. No free air. Lymph Nodes: There are mildly enlarged lymph nodes seen near the celiac axis. The largest measures 1 .3 x 1 cm. Bones: Within normal limits for the patient's age. Soft Tissues: Small fat containing umbilical hernia. PELVIS: Bladder: Symmetric distention, no gross wall thickening. Reproductive Organs: Enlarged prostate gland which impinges upon the base of the urinary bladder. Th ere is a nodular protrusion into the urinary bladder from of the dome of the prostate gland. This ma y be secondary to the prostatic hypertrophy but a prostatic mass or urinary bladder mass cannot be ex cluded. Lymph Nodes: Please see above. Bones: Within normal limits. IMPRESSION: 1. Diffuse concentric thickening of the wall of the distal esophagus consistent with the patient's kn own history of esophageal cancer. 2. Mildly enlarged mediastinal and upper abdominal lymph nodes. 3. Multiple hepatic masses and new lucency seen within the bones consistent with metastatic disease. 4. Enlarged prostate gland with a nodular protrusion at the superior aspect projecting into the urina ry bladder. The finding may represent the enlarged prostate gland, bladder mass or prostatic mass. 5. RADIATION DOSE DELIVERED: 2,608.95mGy.cm Total DLP DATA REPOSITORY: All CT scans at this facility are submitted to the National Radiology Data Registry (NRDR) Dose Index Registry (DIR) with the [employer] ([employer]). RADIATION OPTIMIZATION: All CT scans at this facility use at least one of these dose optimization te chniques: automated exposure control; mA and/or kV adjustment per patient size (includes targeted exa ms where dose is matched to clinical indication); or iterative reconstruction.
--- NOTE | 2021-06-01 10:11 | DI.CT_ITS ---
Exam(s) CT HEAD WO/W EXAM: CT HEAD WO/W CLINICAL HISTORY: esophageal cancer. TECHNIQUE: Imaging Protocol: Axial computed tomography images with coronal and sagittal reformatted images were created and reviewed. CONTRAST MATERIAL: Intravenous: Omnipaque 350 Contrast volume:100 mL COMPARISON: CT CT BRAIN NECK CTA from 01/30/[address] CHEST/ABD/PEL W from 06/01/2021 FINDINGS: Ventricles and Extra axial spaces: Normal in size and morphology for the patient's age. Hemorrhage: None. Cerebral parenchyma: No acute territorial infarct. There are areas of decreased attenuation in the w lyle matter most consistent with small vessel ischemic disease. Enhancement: No suspicious enhancement. [place] of [place]: Unremarkable. Midline shift: None. Brainstem/Cerebellum: Normal. Calvarium: Normal. Visualized Paranasal sinuses/Mastoids: Clear. IMPRESSION: 1. No acute intracranial process. 2. No evidence of intracranial metastatic disease. RADIATION DOSE DELIVERED: 2,608.95mGy.cm Total DLP 2,608.95mGy.cm Total DLP DATA REPOSITORY: All CT scans at this facility are submitted to the National Radiology Data Registry (NRDR) Dose Index Registry (DIR) with the [employer] (ACR). RADIATION OPTIMIZATION: All CT scans at this facility use at least one of these dose optimization te chniques: automated exposure control; mA and/or kV adjustment per patient size (includes targeted exa ms where dose is matched to clinical indication); or iterative reconstruction.
[2021-06-01] MEDS: Omnipaque 350 MG/ML 100 ML BTL IV (10:21)
--- NOTE | 2021-06-01 10:41 | PCNE_ITS ---
Date of service: 06/01/21 Time of Service: 10:42 History of Present Illness Narrative: Tremaine Teixeira is a pleasant 71 year old incarcerated man with a past medical history significant for vascular disease, COPD, smoker who presented for an EGD due to difficulty swallowing, GERD and a weight loss of greater than 30 pounds over the last 4 months. He was initially started on PPI with no i mprovement in his symptoms. His EGD on 05/30/2021 was notable for an obstructive mass in his distal esophagus highly suspicious for cancer. He went on to have CT Chest/Abd/Pelvis/head, the results of which were not available prior to his Palliative visit. Palliative was consulted to discuss goals of care. He has 2 correctional guards present in his room. He has been incarcerated for approximately 4 months. His symptoms began prior to his incarceration. We discussed GOALS. (1) His biggest goal is to get out of assisted do to his declining health. His collections attorney was working on getting him out prior to the new diagnosis of esophageal cancer. (2)Another stated goal is to be able to eat and to gain weight. (3) He is also interested in finding out if his mother is still alive. She lives in [place], [place]. He last spoke to her 6-7 months ago when she was in a intermediate with [facility], she is 88 yrs old. He has a brother in [place], [place] as well who might be able to help locate his mother. He is hoping to settle into low income housing in [place] if he gets out of assisted. He would like to remain a FULL CODE at this time. He would be interested in a feeding tube. When discussing the possibility of chemotherapy and/for radiation. He states, I'm not too keen on it, I do not want to lose my hair. He would be open to surgery if it was an option. He is interested in meeting with oncology to discuss options. When questioned who he would choose to speak for him if he is unable to speak for himself. He first stated that he would only trust his ex-fianc?, Giuliana Felix, but then went on to state that she is not allowed to have contact with her per the judges order. This could be revisited, however, he is encouraged to consider someone that he can speak to, to be his health care agent so they can be aware of his wishes. He also stated that he would consider his step-sister, Yuliya Deleon but he has not spoken to her for over a year and he does not know how to contact her. A guard in the room contacted his casework supervisor at the assisted (Gerry) to assist with contacting her. Tremaine lived in [place] for 33 years. He moved to [place] about 7 years ago. He has 7 kids who are scattered around the country. He does not have contact with any of them because, they are upset with him. Assessment and Plan Assessment and plan (1) Esophageal cancer: Status: Acute (2) Abnormal weight loss: Status: Acute (3) Dysphagia: Status: Acute Qualifiers: Dysphagia type: unspecified Qualified Code(s): R13.10 - Dysphagia, unspecified (4) Vertebral artery stenosis: Status: Acute (5) COPD (chronic obstructive pulmonary disease) with emphysema: Status: Acute (6) Atherosclerosis: Status: Acute (7) Hypernatremia: Status: Acute (8) Hypokalemia: Status: Acute (9) Acute kidney injury superimposed on chronic kidney disease: Status: Acute (10) Dehydration: Status: Acute (11) Palliative care patient: Assessment and plan: Tremaine Teixeira is a pleasant 71 year old incarcerated man with a past medical history significant for vascular disease, COPD, smoker who presented for an EGD due to difficulty swallowing, GERD and a weight loss of greater than 30 pounds over the last 4 months. He was initially started on PPI with no improvement in his symptoms. His EGD on 05/30/2021 was notable for an obstructive mass in his distal esophagus highly suspicious for cancer. He went on to have CT Chest/Abd/Pelvis/head, the results of which were not available prior to his Palliative visit. Palliative was consulted to discuss goals of care. Diagnosis: New diagnosis of Metastatic Esophageal cancer (not known to be metastatic at the time of his visit). CT scan shows likely metastatic to mediastinal and upper abd lymph nodes, multiple hepatic masses, new lucency seen within bones as well as enlarged prostate gland with nodular protrusion into the urinary bladder. His goals are: 1. Get out of assisted. He has a court date on 06/06, his collections attorney was trying to help him get out due to his declining health prior to the new Dx of esophageal cancer, now appears to be metastatic. 2. Be able to eat/drink. 3. Gain weight. 4. Find out if his mother is still alive. She was in a intermediate with [facility] in [place], [place] when he last spoke to her about 6-7 months ago. He wants to meet with oncology to discuss options. He would be interested in surgery if it is an option. He is less interested in chemo/radiation. We reviewed CODE status: He is a FULL CODE. He would want a feeding tube at this point. This discussion was prior to the new information obtained from CT scan. We discussed the importance of having a health care agent. He first thought of his ex-fiance, who he is not allowed to contact per cement sprayer helper's order. Then he thought of his step-sister, Yuliya, who he has not spoken to in over 1 year. His casework supervisor, Gerry, will help reach out to people for him to see if they are willing to talk to him/be involved in his care. His rabble furnace tender was contacting Gerry. It is unclear if he can receive Palliative care while incarcerated. If he is released, it would likely benefit him to follow up with Palliative care as an outpatient to continue to discuss goals of care and advanced care planning. Palliative will continue to follow as needed during hospitalization. Review of Systems All systems reviewed & are unremarkable except as noted in HPI and below PFSH All Active Problems (Updated 06/01/21 @ 12:52 by Annamaria Richardson NP) Vertebral artery stenosis (Acute) COPD (chronic obstructive pulmonary disease) with emphysema (Acute) Atherosclerosis (Acute) Productive cough (Acute) DVT prophylaxis (Acute) Hypernatremia (Acute) Hypokalemia (Acute) Acute kidney injury superimposed on chronic kidney disease (Acute) Dehydration (Acute) Esophageal cancer (Acute) Abnormal weight loss (Acute) Acute renal insufficiency (Acute) Light-headed feeling (Acute) Chest pain (Acute) Dysphagia (Acute) Abdominal pain, epigastric (Acute) Medical History (Updated 06/01/21 @ 12:52 by Annamaria Richardson NP) Cataracts, bilateral Cerebrovascular disease CKD (chronic kidney disease) stage 3, GFR 30-59 ml/min GERD (gastroesophageal reflux disease) Heart disease Hypertension Murmur, heart Palliative care patient Pulmonary nodule SARS-CoV-2 positive (~01/2021) Asymptomatic Smoker Vertebral artery disease Surgical History History of common carotid artery stent placement 2017 [facility] [place] History of coronary artery bypass graft x 3 2014- [facility] [place] [place] Family History Mother Heart disease Diabetes Hypertension Maternal Grandmother Stroke Social History Smoking/Tobacco Use Status: Former Tobacco Use Smoking risk assessment performed?: Yes Alcohol Intake: former Drug use: Never Substance use type: does not use Do you feel safe at home: Yes Do you feel safe in your relationship?: Yes Additional Social history: [facility]rections inmate Exam Narrative Exam Narrative: General: very thin man, laying in bed, awake and alert. He has 2 guards present in his room. He answers questions appropriately. He is tearful at times. TPN running. HEENT: atraumatic, wearing tinted glasses, EOMI, mucous membranes moist. Neck: supple, no JVD. Respiratory: respirations appear unlabored. Extremities: moves extremities freely. Results Last Vital Signs Temp 36.8 C 06/01/21 09:15 Pulse 52 L 06/01/21 09:42 Resp 18 06/01/21 09:15 BP 119/63 06/01/21 09:42 Pulse Ox 95 06/01/21 09:15 Labs Result diagrams: 06/01/21 06:32 06/01/21 06:32 Labs: Laboratory Results - last 24 hr 05/31/21 05/31/21 06/01/21 12:35 21:00 02:40 WBC RBC Hgb Hct MCV MCH MCHC RDW Plt Count MPV Immature Gran % Neutrophils % Lymphocytes % Monocytes % Eosinophils % Basophils % Nucleated RBC % Absolute Neutrophils Absolute Lymphocytes Absolute Monocytes Absolute Eosinophils Absolute Basophils Sodium 148 H 146 H 143 Potassium 3.5 Chloride 108 H Carbon Dioxide 31.1 Anion Gap 6.9 BUN 60 H Creatinine 1.9 H Estimated GFR/1.73 m2 35.22 Glucose 152 H Calcium 8.7 Phosphorus Magnesium 06/01/21 06/01/21 06/01/21 06:32 06:32 06:32 WBC 13.72 H RBC 3.69 L Hgb 11.9 L D Hct 36.8 L MCV 99.7 H MCH 32.2 MCHC 32.3 RDW 12.6 Plt Count 114 L MPV 13.5 H Immature Gran % 0.4 Neutrophils % 73.3 Lymphocytes % 16.2 Monocytes % 9.9 Eosinophils % 0.1 Basophils % 0.1 Nucleated RBC % 0 Absolute Neutrophils 10.06 H Absolute Lymphocytes 2.22 Absolute Monocytes 1.36 H Absolute Eosinophils 0.01 Absolute Basophils 0.01 Sodium 143 Potassium 3.0 L Chloride 107 Carbon Dioxide 30.6 Anion Gap 5.4 BUN 51 H Creatinine 1.6 H Estimated GFR/1.73 m2 42.95 Glucose 142 H Calcium 8.5 Phosphorus 2.0 L Magnesium 2.2
--- NOTE | 2021-06-01 11:13 | NS.NUTBLAN_ITS ---
Date of service: 06/01/21 Time of Service: 11:13 Nutritional Consult ASSESSMENT: Mr. Teixeira is admitted with epigastric pain. He also states he is losing weight and has difficulty swallowing. He is currently NPO. On 01/30/21, he weighed 75.5 kg. On 05/30/21 his weight was down to 58.5 kg which is a 22.5% unintentional weight loss and is significant. It is noted on his physical exam that he is cachexic and has muscle atrophy in his extremities. Estimated energy needs are: 1500 kcal/day (25 kcal/kg/day) Estimated protein needs are 76 g to 88 g/day (1.3 to 1.5 g/kg/day) Estimated fluid needs are: 1800 ml/day (30 ml/kg/day) Mr. Teixeira is currently receiving TPN. 2.0 L providing 1520 kcals and 85 g of protein thus meeting 100% of his nutritional needs. NUTRITIONAL DIAGNOSIS: Severe malnutrition in the context of acute illness related to swallowing difficulties as well as physiologic process as evidenced by severe weight loss in a 4 month period and moderate atrophy. (ASPEN/AND guidelines for diagnosing malnutrition) INTERVENTION: Agree with continuation of TPN with current macronutrients. Would consider a feeding tube if terminal operations supervisor nutrition support is being considered. MONITORING AND EVALUATION: Will continue to monitor nutritional status. Will evaluate nutrition care plan ongoing and adjust as needed. Thank you for the consult. Time Spent in Nutritional Counseling and Treatment: 0
[2021-06-01 12:50] LABS: Lab Add On Test DONE
[2021-06-01 13:43] LABS: LDH 227 U/L (85-227)
--- NOTE | 2021-06-01 13:54 | W.PM.PROGNOT ---
Date of Service Date of service: 06/01/21 Time of Service: 13:54 Subjective Subjective Interval history since last seen: Per Infection control recommendations, I am requesting a repeat COVID test today. There should also be one done on day 5 if he tests negative today. However, he does not need to be kept on precautions unless his test comes back positive. Hospitalists are signing off. Please, reconsult if needed. Objective Last Vital Signs Temp 37.0 C 06/01/21 12:35 Pulse 55 L 06/01/21 12:35 Resp 17 06/01/21 12:35 BP 130/65 06/01/21 12:35 Pulse Ox 93 06/01/21 12:35 Laboratory Results - last 24 hr 05/31/21 06/01/21 06/01/21 21:00 02:40 06:32 WBC RBC Hgb Hct MCV MCH MCHC RDW Plt Count MPV Immature Gran % Neutrophils % Lymphocytes % Monocytes % Eosinophils % Basophils % Nucleated RBC % Absolute Neutrophils Absolute Lymphocytes Absolute Monocytes Absolute Eosinophils Absolute Basophils Sodium 146 H 143 Potassium 3.5 Chloride 108 H Carbon Dioxide 31.1 Anion Gap 6.9 BUN 60 H Creatinine 1.9 H Estimated GFR/1.73 m2 35.22 Glucose 152 H Calcium 8.7 Phosphorus 2.0 L Magnesium 2.2 Lactate Dehydrogenase Add-On Test Request 06/01/21 06/01/21 06/01/21 06:32 06:32 06:32 WBC 13.72 H RBC 3.69 L Hgb 11.9 L D Hct 36.8 L MCV 99.7 H MCH 32.2 MCHC 32.3 RDW 12.6 Plt Count 114 L MPV 13.5 H Immature Gran % 0.4 Neutrophils % 73.3 Lymphocytes % 16.2 Monocytes % 9.9 Eosinophils % 0.1 Basophils % 0.1 Nucleated RBC % 0 Absolute Neutrophils 10.06 H Absolute Lymphocytes 2.22 Absolute Monocytes 1.36 H Absolute Eosinophils 0.01 Absolute Basophils 0.01 Sodium 143 Potassium 3.0 L Chloride 107 Carbon Dioxide 30.6 Anion Gap 5.4 BUN 51 H Creatinine 1.6 H Estimated GFR/1.73 m2 42.95 Glucose 142 H Calcium 8.5 Phosphorus Magnesium Lactate Dehydrogenase Add-On Test Request DONE 06/01/21 13:15 WBC RBC Hgb Hct MCV MCH MCHC RDW Plt Count MPV Immature Gran % Neutrophils % Lymphocytes % Monocytes % Eosinophils % Basophils % Nucleated RBC % Absolute Neutrophils Absolute Lymphocytes Absolute Monocytes Absolute Eosinophils Absolute Basophils Sodium Potassium Chloride Carbon Dioxide Anion Gap BUN Creatinine Estimated GFR/1.73 m2 Glucose Calcium Phosphorus Magnesium Lactate Dehydrogenase 227 Add-On Test Request
[2021-06-01 15:24] LABS: Source Nasopharynx
[2021-06-01 16:09] LABS: COVID-19 PCR Negative (Negative); Influenza A PCR Negative (Negative); Influenza B PCR Negative (Negative); RSV PCR Negative (Negative)
--- NOTE | 2021-06-01 16:35 | PGE_ITS ---
Date of Service Date of service: 06/01/21 Time of Service: 16:35 Assessment and Plan Assessment and plan (1) Vertebral artery stenosis: Status: Acute (2) COPD (chronic obstructive pulmonary disease) with emphysema: Status: Acute (3) Atherosclerosis: Status: Acute (4) Acute kidney injury superimposed on chronic kidney disease: Status: Acute (5) Esophageal cancer: Status: Deleted (6) Esophageal cancer, stage IV: Status: Acute Assessment and plan: -Awaiting pathology results from [facility] -CT scan shows esophageal cancer with mets to the liver bone. These were not present on his CT scan in January 2021. -Patient has severe malnutrition with a documented 30 pound weight loss and hypoalbuminemia. He currently has a PICC line in and is receiving TPN. Electro lyte abnormalities are being corrected. Kidney function has recovered with fluids. -I did discuss with the patient going forward that chemotherapy will be palliative and not curative. Most likely he will not be able to eat and will need a feeding tube for nutrition. We discussed placing that tube. We cannot place it percutaneously/endoscopically. We will not build to get him down to [facility] for IR procedure because of his Covid rule out state. I feel it is imperative that we get the tube placed as soon as possible to start adequate nutrition. My plan would be to do a mini laparotomy and place the tube on Friday 06/02. He would need to have general anesthesia. He tolerated a general well on Saturday when we did his EGD. He does have a higher risk of heart attack and stroke because of his underlying atherosclerosis and coronary artery disease and cerebrovascular disease. Risks of surgery include but not limited to: Bleeding, infection, pneumonia, blood clots. Damage to bowel blood vessels. Hernias. Thrombosis or infection of the port that would necessitate removal. If the feeding tube gets inadvertently removed in the next 2 weeks it would require repeat laparotomy. Tubes require periodic tube changes and routine daily care. Is at high risk for wound infections and hernia secondary to his malnutrition and history of smoking. Patient does wish to proceed with procedure. If any of the lesions are visible at the time of surgery we will also plan on doing a liver biopsy -I did discuss with the medical staff at the [facility]. He would need to go to the [facility] postop. And would most likely be ready to be transferred on Saturday or Saturday of next week. -His overall prognosis was poor. Palliative consult was done. I didn't communicate my findings to them as well. So far patient does want to proceed with aggressive care. 90 minutes was spent in care and consultation of the patient today I did review his care with Dr. Melara as well. Hospitalist service will be signing off at this point. (7) Abnormal weight loss: Status: Acute (8) Acute renal insufficiency: Status: Acute (9) Dysphagia: Status: Acute Qualifiers: Dysphagia type: unspecified Qualified Code(s): R13.10 - Dysphagia, unspecified (10) Cataracts, bilateral: (11) Cerebrovascular disease: (12) CKD (chronic kidney disease) stage 3, GFR 30-59 ml/min: (13) GERD (gastroesophageal reflux disease): (14) Heart disease: (15) Hypertension: (16) Murmur, heart: (17) Smoker: (18) History of common carotid artery stent placement: (19) History of coronary artery bypass graft x 3: (20) Severe protein-calorie malnutrition: Status: Acute (21) Abnormal blood electrolyte level: Status: Acute Subjective Subjective Interval history since last seen: Patient seen and examined today. no headaches. No CP or SOB. no productive cough. no dysuria. no leg pain or swelling. He had a PICC line placed yesterday and is receiving TPN. Electrolytes were adjusted. Notes from nutrition appreciated. Patient is still on Covid precautions and is not up walking. He has to have another Covid test on Saturday before he is deemed negative. The results of his recent CT show that he has tumor in the liver and in his spine. He also has enlarged lymph nodes in the mediastinum. I did discuss with him that this is a poor prognostic indicator. This will not be curative all. But we can do palliative chemo to buy him some time. Patient wishes everything to be done at this point. He does wish to have a feeding tube placed. He still on Covid precautions and won't be off of them until he tests negative Saturday which means we won't really have the results until Saturday. I do feel it is imperative we get a feeding tube in him and start nutrition as he is severely malnourished. [facility] he has significant muscle wasting and weight loss. I don't know if [facility] would probably not be able to do IR feeding until sometime later next week even if he would be a candidate for that. I do not have pathology back yet from [facility]. They just received the specimen today. I probably won't have results until Saturday next week or even Saturday this will determine his course of chemo. Regarding his current living situation, he would not be able to go back to the general population and would need to go to the [facility]. I did discuss this with the [place] [facility] officials today. He would need to go to the [facility] after replaced the feeding tube. And he would most likely have to be [facility] [place] [facility] as he would be too weak to be in [facility]. And they would not be able to accommodate tube feedings. I also discussed this with the palliative care team as well At this point patient does want to pursue aggressive treatment. We will plan on placing a open gastrostomy tube and PowerPort for chemo on Saturday. Risks of this procedure include but not limited to: Bleeding, infection, pneumonia, blood clots, chronic pain or numbness, hernias, dislodgment of the feeding tube requiring repeat laparotomy. He is at high risk for MT or stroke because of his history. Damage to the vein or artery, thrombosis of the port, pneumothorax, I would also attempt a liver biopsy at that time. However from looking at his CTs I don't think it will be physical from an anatomic standpoint. He had general anesthesia with his EGD on Saturday and tolerated it well He has never had any abdominal surgery in the past. He is right-hand dominant. He has never had a central line before. He has never broken his clavicle before. Exam [facility] Head: normal to inspection Ears: hearing grossly normal bilaterally Mouth: moist mucous membranes abnormal Teeth and gingiva: poor dentition Neck Other: No JVD or jaundice Resp Effort & Inspection: normal respiratory effort and able to speak in complete sentences Auscultation: clear to auscultation bilaterally Cardio Rate: regular rate Rhythm: regular rhythm Other: Postsurgical changes from open heart noted GI Inspection: no incisions Palpation: soft, nontender and No ascites Auscultation: normal bowel sounds Extrem General: no clubbing, cyanosis or edema Other: Muscle wasting and weakness noted. Objective Last Vital Signs Temp 36.6 C 06/01/21 15:26 Pulse 59 L 06/01/21 16:30 Resp 16 06/01/21 15:26 BP 140/70 06/01/21 15:26 Pulse Ox 92 06/01/21 15:26 Laboratory Results - last 24 hr 05/31/21 06/01/21 06/01/21 21:00 02:40 06:32 WBC RBC Hgb Hct MCV MCH MCHC RDW Plt Count MPV Immature Gran % Neutrophils % Lymphocytes % Monocytes % Eosinophils % Basophils % Nucleated RBC % Absolute Neutrophils Absolute Lymphocytes Absolute Monocytes Absolute Eosinophils Absolute Basophils Sodium 146 H 143 Potassium 3.5 Chloride 108 H Carbon Dioxide 31.1 Anion Gap 6.9 BUN 60 H Creatinine 1.9 H Estimated GFR/1.73 m2 35.22 Glucose 152 H Calcium 8.7 Phosphorus 2.0 L Magnesium 2.2 Lactate Dehydrogenase COVID-19 Source SARS-CoV-2 (PCR) Influenza Type A (PCR) Influenza Type B (PCR) RSV (PCR) Add-On Test Request 06/01/21 06/01/21 06/01/21 06:32 06:32 06:32 WBC 13.72 H RBC 3.69 L Hgb 11.9 L D Hct 36.8 L MCV 99.7 H MCH 32.2 MCHC 32.3 RDW 12.6 Plt Count 114 L MPV 13.5 H Immature Gran % 0.4 Neutrophils % 73.3 Lymphocytes % 16.2 Monocytes % 9.9 Eosinophils % 0.1 Basophils % 0.1 Nucleated RBC % 0 Absolute Neutrophils 10.06 H Absolute Lymphocytes 2.22 Absolute Monocytes 1.36 H Absolute Eosinophils 0.01 Absolute Basophils 0.01 Sodium 143 Potassium 3.0 L Chloride 107 Carbon Dioxide 30.6 Anion Gap 5.4 BUN 51 H Creatinine 1.6 H Estimated GFR/1.73 m2 42.95 Glucose 142 H Calcium 8.5 Phosphorus Magnesium Lactate Dehydrogenase COVID-19 Source SARS-CoV-2 (PCR) Influenza Type A (PCR) Influenza Type B (PCR) RSV (PCR) Add-On Test Request DONE 06/01/21 06/01/21 13:15 15:15 WBC RBC Hgb Hct MCV MCH MCHC RDW Plt Count MPV Immature Gran % Neutrophils % Lymphocytes % Monocytes % Eosinophils % Basophils % Nucleated RBC % Absolute Neutrophils Absolute Lymphocytes Absolute Monocytes Absolute Eosinophils Absolute Basophils Sodium Potassium Chloride Carbon Dioxide Anion Gap BUN Creatinine Estimated GFR/1.73 m2 Glucose Calcium Phosphorus Magnesium Lactate Dehydrogenase 227 COVID-19 Source Nasopharynx SARS-CoV-2 (PCR) Negative Influenza Type A (PCR) Negative Influenza Type B (PCR) Negative RSV (PCR) Negative Add-On Test Request
--- NOTE | 2021-06-01 17:31 | CMPROGNOTE_ITS ---
Care Management Progress Note S/O: Per MD, Hospitalist will sign off from consultation at this time. No change to overall plan. Tremaine transitioned to room 225 this evening. CM continues to follow. A: 71 year old male admitted to [facility] 05/30/20 for obstructing esophageal cancer P: Tremaine [place] [facility] the [place] [facility] when medically cleared. T ransport will be arranged by the facility. He will follow up with the facility provider and discharge plan of care. CM will continue to follow.
--- NOTE | 2021-06-01 17:31 | PDOC.CMPRO ---
Care Management Progress Note S/O: Per MD, Hospitalist will sign off from consultation at this time. No change to overall plan. Tremaine transitioned to room 225 this evening. CM continues to follow. A: 71 year old male admitted to [facility] 05/30/20 for obstructing esophageal cancer P: Tremaine [place] return to the [place] [facility] when medically cleared. Transport will be arranged by the facility. He will follow up with the facility provider and discharge plan of care. CM will continue to follow.
[2021-06-01 22:12] LABS: PSA, Diagnostic 0.8 ng/mL (0.0-6.5)
[2021-06-02] VITALS (26 sets, daily range): BP systolic 91–159; BP diastolic 48–85; PULSE 51–72; RESP 11–19; TEMP 35.1–37.1; O2SAT 95–100; BMI 20.2
--- NOTE | 2021-06-02 | DI.RAD_ITS ---
Exam(s) XR PORTABLE CHEST AP POST LINE EXAM: XR PORTABLE CHEST AP POST LINE CLINICAL HISTORY: s/p port TECHNIQUE: 2D digital imaging was performed of the chest. One image was obtained. An AP view was ob tained. COMPARISON: CT CT CHEST/ABD/PEL W from 06/01/2021 FINDINGS: MEDIASTINUM: Normal. HEART: Normal. PULMONARY VASCULATURE: Normal. LUNGS: Clear. PLEURAL SPACE: No pleural effusion or pneumothorax. BONE:Within normal limits for the patient's age. OTHER FINDINGS:There is free air beneath the hemidiaphragms. This may reflect recent abdominal surge ry. Please correlate clinically. The tip of the Unzpjh-O-Gpiy catheter is in good position in the s uperior vena cava. IMPRESSION: 1. Tip of the Mjsgwg-B-Zkpe catheter in good position in the superior vena cava. 2. Pneumoperitoneum. Please correlate with any recent abdominal surgery. 3. Findings were discussed with the medical surgery floor at 4:10 p.m. on 06/02/2021. DATA REPOSITORY: RADIATION DOSE DELIVERED:
[2021-06-02] MEDS: Metoprolol 5 MG/5 ML VIAL 2.5 MG IVP ×3 (04:58→22:02)
[2021-06-02] MEDS: MORPHine 2 MG/ML SYR IVP ×7 (05:23→22:10)
[2021-06-02 07:18] LABS: Abs Immature Grans 0.05 10^3/uL (0.0-0.06); Absolute Basophil Count 0.03 10^3/uL (0.0-0.2); Absolute Lymphocyte Count 2.46 10^3/uL (1.2-3.4); Absolute Monocyte Count 1.26 10^3/uL (0.1-0.8); Absolute Neutrophil Count 5.81 10^3/uL (1.2-6.7); Basophils % 0.3; HCT 36.3 % (40.0-50.0); HGB 11.6 g/dL (13.5-17.5); Immature Grans % 0.5; Lymphocytes % 25.3; MCH 32.5 pg (27.0-33.0); MCV 101.7 fL (80-95); Neutrophils % 59.9; Nucleated RBC 0 %; RBC 3.57 10^6/uL (4.36-5.78); RDW 12.8 % (11.8-14.1); RDW-SD 48.1 fL; WBC 9.71 10^3/uL (4.4-10.8)
[2021-06-02 08:02] LABS: Platelet Count 96 10^3/uL (130-400)
[2021-06-02 08:06] LABS: ALT 17 U/L (16-63); AST 28 U/L (15-37); Albumin 2.6 g/dL (3.4-5.0); Alkaline Phosphatase 194 U/L (46-116); Anion Gap 6.4 mmol/L (3-11); BUN 41 mg/dL (7-18); Bilirubin, Total 0.5 mg/dL (0.2-1.0); CO2 27.6 mmol/L (21.0-32.0); CREATININE 1.3 mg/dL (0.70-1.30); Calcium 8.2 mg/dL (8.5-10.1); Calculated LDL 34 mg/dL (<100); Chloride 106 mmol/L (98-107); Cholesterol 84 mg/dL (<200); Estimated GFR 54.57 (mL/min/1.73m2); Glucose 125 mg/dL (74-106); HDL Cholesterol 39 mg/dL (40-60); Potassium 3.5 mmol/L (3.5-5.1); Sodium 140 mmol/L (136-145); TSH (W/Ref FT4) 1.81 uIU/mL (0.36-3.74); Total Protein 6.1 g/dL (6.4-8.2); Triglyceride 56 mg/dL (<150)
[2021-06-02] MEDS: FLUCONAZOLE 200 MG/100 ML BAG 100 MG IVPB (08:12)
[2021-06-02] MEDS: Normal Saline Flush 10 ML SYR IVP ×3 (08:13→19:59)
[2021-06-02 08:21] LABS: C-Reactive Protein 3.36 mg/dL (0.0-0.3); PHOSPHORUS 2.1 mg/dL (2.6-4.7)
--- NOTE | 2021-06-02 11:45 | DI.RAD_ITS ---
Exam(s) RF LINE PLACEMENT OR EXAM: RF LINE PLACEMENT OR CLINICAL HISTORY: port placement TECHNIQUE: 2D and realtime digital imaging was performed. CONTRAST MATERIAL: Refer to procedure report. COMPARISON: No exams were available for comparison FINDINGS: Fluoroscopy was provided for Dr. Mitchell during the performance of a port placement. Please refer t o the procedure report for complete details. Ka,r=1.25 mGy IMPRESSION: RADIATION DOSE DELIVERED:
--- NOTE | 2021-06-02 13:03 | ANES.PREOP_ITS ---
General Info Date of Service Date Performed: 06/02/21 Height: 5 ft 7 in Weight: 58.559 kg Body Mass Index (BMI): 20.2 Surgical Procedure: Operation Date: 05/30/21 10:05 Proposed Procedures Side Surgeon p Gastroscopy Leatha Mitchell DO Actual Procedures Side Surgeon p Gastroscopy Not Applicable Leatha Mitchell DO Pre-Op Diagnosis Post-Op Diagnosis GERD, Dysphagia GERD, Dysphagia, distal esophagus obstructing mass Operation Date: 06/02/21 11:40 Proposed Procedures Side Surgeon p Open Peg Tube via Laparotomy w/Port Placement Leatha Mitchell DO s Port-A-Cath Placement Leatha Mitchell DO Meds Allergies and Home Medications Allergies Allergy/AdvReac Type Severity Reaction Status Date / Time codeine AdvReac Intermediate Nausea Unverified 05/30/21 10:43 Home Medication Medication Instructions Recorded aspirin [Aspir-81] 81 mg PO DAILY 10/21/15 carvedilol 12.5 mg PO BID 03/02/21 amlodipine 5 mg tablet 5 mg PO DAILY 03/14/21 atorvastatin 80 mg tablet 80 mg PO DAILY 03/14/21 multivitamin 1 tab PO DAILY 03/14/21 nitroglycerin 0.4 mg sublingual 0.4 mg SUBLINGUAL Q5M PRN 03/14/21 tablet hydrochlorothiazide 25 mg tablet 25 mg PO DAILY 04/07/21 ondansetron HCl 4 mg PO TID PRN PRN 05/20/21 pantoprazole [Protonix] 40 mg PO DAILY 05/20/21 famotidine [Pepcid] 20 mg PO BID #56 tab 05/21/21 docusate sodium [Colace] 100 mg PO BID 05/26/21 scopolamine base 1 mg TOPICAL Q3D PRN 05/26/21 Current Visit Medications: Current Medications Generic Name Dose Route Start Last Admin Trade Name Freq PRN Reason Stop Dose Admin Sodium Chloride 500 mls @ 0 mls/hr 05/30/21 12:28 Saline 500ml Bag IV PRN PRN As Directed Fluconazole 200 mg in 100 mls @ 100 mls/hr 05/31/21 08:30 06/02/21 08:12 Diflucan/N. Saline 200 Mg/100 Ml IVPB 100 mls/hr DAILY MAXIMO Administration Fat Emulsion 50 gm in 250 mls @ 31.25 mls/hr 06/01/21 08:30 06/02/21 08:13 Intralipid 20% IVPB 31.25 mls/hr DAILY MAXIMO Administration Famotidine 20 mg/ Dextrose/ 102 mls @ 204 mls/hr 06/02/21 04:00 06/02/21 04:58 Water IV 204 mls/hr Q12H MAXIMO Administration Clindamycin Phosphate/Dextrose 600 mg in 50 mls @ 100 mls/hr 06/02/21 06:00 Cleocin In D5w IVPB 06/02/21 23:59 PREOP MAXIMO Sodium/Potass/Mag/Dany/Chlor/ 1,031 mls @ 85.917 mls/hr 06/02/21 12:30 Acetate 20 ml/ Multivitamins IV 06/02/22 12:29 10 ml/ Zinc/Copper/Manganese/ .BY DURATION MAXIMO Selenium 1 ml/ Amino Acids/ Dextrose Sodium/Potass/Mag/Dany/Chlor/ 1,025 mls @ 85 mls/hr 06/02/21 12:30 Acetate 20 ml/ Sodium IV 06/02/22 12:29 Biphosphate 15 mm/ Amino Acids .BY DURATION MAXIMO /Dextrose IV Miscellaneous Supplies 1 each 05/30/21 12:30 Iv Access IV DIRECTED MAXIMO Metoprolol Tartrate 2.5 mg 06/01/21 22:00 06/02/21 10:01 Metoprolol 5 Mg/5 Ml Vial IVP 2.5 mg Q6H MAXIMO Administration Morphine Sulfate 2 mg 05/30/21 12:28 06/02/21 11:42 Morphine 2 Mg/Ml Syr IVP 2 mg Q1H PRN PRN Administration Nitroglycerin 0.4 mg 05/30/21 15:53 Nitroglycerin 0.4 Mg Tab SL Q5 MIN PRN X3 PRN Ondansetron HCl 4 mg 05/30/21 12:28 06/01/21 23:57 Ondansetron 4 Mg/2 Ml Vial IVP 4 mg Q4H PRN PRN Administration Scopolamine HBr 1 mg 05/30/21 15:53 Scopolamine 1 Mg/3 Days Patch TP Q3D PRN Sodium Chloride 0 ml 05/30/21 06:00 Normal Saline 10 Ml Vial IJ 06/28/21 23:59 DIRECTED PRN Sodium Chloride 0 ml 05/30/21 12:28 06/02/21 08:13 Normal Saline Flush 10 Ml Syr IVP 10 ml PRN PRN Administration Sodium Chloride 0 ml 05/31/21 20:00 06/02/21 10:01 Normal Saline Flush 10 Ml Syr IVP 10 ml BID MAXIMO Administration Sterile Water 0 ml 05/30/21 06:00 Water,Injection,Sterile 10 Ml Vial IJ 06/28/21 23:59 DIRECTED PRN PFSH Active Problems Active Problems: Problem Status Onset Code Abnormal blood electrolyte level E87.8 Severe protein-calorie malnutrition E43 Esophageal cancer, stage IV C15.9 Vertebral artery stenosis I65.09 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 Atherosclerosis I70.90 Productive cough R05.8 DVT prophylaxis Z29.9 Hypernatremia E87.0 Hypokalemia E87.6 Acute kidney injury superimposed on chronic kidney disease N17.9, N18.9 Dehydration E86.0 Abnormal weight loss R63.4 Acute renal insufficiency N28.9 Dysphagia R13.10 Medical History Medical History (Updated 06/01/21 @ 16:59 by Leatha Mitchell DO) Cataracts, bilateral Cerebrovascular disease CKD (chronic kidney disease) stage 3, GFR 30-59 ml/min GERD (gastroesophageal reflux disease) Heart disease Hypertension Murmur, heart Palliative care patient Pulmonary nodule SARS-CoV-2 positive (~01/2021) Asymptomatic Smoker Vertebral artery disease Surgical History Surgical History History of common carotid artery stent placement 2017 [facility] History of coronary artery bypass graft x 3 2014- [facility]/[place], [place] Tobacco Smoking/Tobacco Use Status: Former Tobacco Use Alcohol Alcohol Intake: former Substance Use Substance use: Never Substance use type: does not use Vital Signs and Lab Results Vital Signs Most Recent Vital Signs in EMR: Most Recent Vital Signs Temp Pulse Resp BP Pulse Ox 36.7 C 61 15 124/75 96 06/02/21 11:19 06/02/21 11:19 06/02/21 11:19 06/02/21 11:19 06/02/21 11:19 Point of Care Results Point of Care Results: Finger Stick Blood Glucose 104 06/02/21 11:47 Lab Results Result Diagrams: 06/02/21 06:00 06/02/21 06:00 Blood Type / Crossmatch: No Data to Display Complete Blood Count: White Blood Count 9.71 10^3/uL (4.4-10.8) 06/02/21 06:00 06/02/21 Red Blood Count 3.57 10^6/uL (4.36-5.78) L 06/02/21 06:00 06/02/21 Hemoglobin 11.6 g/dL (13.5-17.5) L 06/02/21 06:00 06/02/21 Hematocrit 36.3 % (40.0-50.0) L 06/02/21 06:00 06/02/21 Platelet Count 96 10^3/uL (130-400) L 06/02/21 06:00 06/02/21 Complete Metabolic Panel: Sodium Level 140 mmol/L (136-145) 06/02/21 06:00 06/02/21 Potassium Level 3.5 mmol/L (3.5-5.1) 06/02/21 06:00 06/02/21 Chloride Level 106 mmol/L (98-107) 06/02/21 06:00 06/02/21 Carbon Dioxide Level 27.6 mmol/L (21.0-32.0) 06/02/21 06:00 06/02/21 Blood Urea Nitrogen 41 mg/dL (7-18) H 06/02/21 06:00 06/02/21 Creatinine 1.3 mg/dL (0.70-1.30) 06/02/21 06:00 06/02/21 Estimated GFR/1.73 m2 54.57 (mL/min/1.73m2) 06/02/21 06:00 06/02/21 Magnesium Level 2.0 mg/dL (1.8-2.4) 06/02/21 06:00 06/02/21 Calcium Level 8.2 mg/dL (8.5-10.1) L 06/02/21 06:00 06/02/21 Albumin 2.6 g/dL (3.4-5.0) L 06/02/21 06:00 06/02/21 Glucose Level 125 mg/dL (74-106) H 06/02/21 06:00 06/02/21 C-Reactive Protein 3.36 mg/dL (0.0-0.3) H 06/02/21 06:00 06/02/21 Liver Function Panel: Alanine Aminotransferase (ALT/SGPT) 17 U/L (16-63) 06/02/21 06:00 06/02/21 Aspartate Amino Transf (AST/SGOT) 28 U/L (15-37) 06/02/21 06:00 06/02/21 Coagulation Panel: No Data to Display Cardiac Panel: No Data to Display Arterial Blood Gas: No Data to Display Venous Blood Gas: No Data to Display Pancreas Panel: Lipase 121 U/L (73-393) 05/20/21 22:00 05/20/21 Thyroid Panel: Thyroid Stimulating Hormone (TSH) 1.81 uIU/mL (0.36-3.74) 06/02/21 06:00 06/02/21 Infectious Disease: Coronavirus (COVID-19)(PCR) Negative (Negative) 06/01/21 15:15 06/01/21 Coronavirus 2019 Source Nasopharynx 06/01/21 15:15 06/01/21 Influenza Virus Type A (PCR) Negative (Negative) 06/01/21 15:15 06/01/21 Influenza Virus Type B (PCR) Negative (Negative) 06/01/21 15:15 06/01/21 Respiratory Syncytial Virus (PCR) Negative (Negative) 06/01/21 15:15 06/01/21 Blood Cultures: No Data to Display Toxicology Panel: No Data to Display Imaging and Studies Imaging and Studies Study information below may be from another EMR and interpreted by another provider. Please see original notes in EMR for more complete details. EKG Summary: Conclusion Sinus rhythm...normal P axis, V-rate 60- 99 Probable left atrial enlargement...P >50mS, <-0.10mV V1 Left ventricular hypertrophy...multiple LVH criteria Carotid Artery Summary:: IMPRESSION: 1. 50-69 percent stenosis bilaterally in the internal carotid arteries. 2. Antegrade flow is visible in both vertebral arteries. Anesthesia Assessment and Plan Anesthesia History Personal History: No History of Anesthesia Complications Family History: No Family History of Anesthesia Complications Exercise Tolerance Exercise Tolerance: Metabolic Equivalents<4 Cardiac & Pulmonary Exam Cardiac Exam: Normal S1/S2 Heart Sounds Pulmonary Exam: Rhonchi Present Implantable Cardiac Device Does patient have a Pacemaker or an ICD?: No Airway Exam Known Difficult Airway: No Mallampati Class: 2 Mouth Opening: Normal (> 3cm) Thyromental Distance: Greater than 3 cm Neck Range of Motion: Full ROM Neck Circumference: Normal Teeth Condition: Edentulous (except one broken lower left canine) ASA Classification ASA Score: ASA 4 Emergency Case?: No NPO Status NPO Status: NPO Clears >2 hours, Solids >8 hours Anesthesia Plan Resuscitation Status: Full Code Anesthesia Technique: General Anesthesia Airway Planned: Endotracheal Tube (RSI) Monitors Used: Standard Monitors
[2021-06-02] MEDS: CLINDAMYCIN 600 MG/50 ML BAG 100 MG IVPB ×2 (13:21→19:57)
[2021-06-02] MEDS: Heparin 500 UNITS/5 ML SYRINGE (14:52)
[2021-06-02] MEDS: Bupivacaine 0.5% Pres-Free 30 ML VIAL (15:19)
--- NOTE | 2021-06-02 15:47 | ROE_ITS ---
Date of service: 06/02/21 Time of Service: 15:47 Operative Note Operative Note DATE OF PROCEDURE: 06/02/21 PRE-OP DIAGNOSIS: Stage IV obstructing esophageal cancer/severe malnutrition POST-OP DIAGNOSIS: other (Obstructing esophageal cancer) PROCEDURE: insertion of R IJ Power Port SURGEON: Leahta Mitchell PHLEBOTOMY LAB ASSISTANT: Gayatri Arce ANESTHESIA TYPE: Local By Surgeon and General LMA/ETT Refer to Anesthesia Record ESTIMATED BLOOD LOSS: 4 COMPLICATIONS: None Patient was transported to: PACU Patient's condition: stable Procedure Description: CONSENT: Indications, risks, and benefits were explained at length. Informed consent is obtained from the patient explaining the risk, benefits and alternatives to the procedure including but not limited to: bleeding/infection/ PTX/damage to vein/artery/nerve (requiring further surgery), reaction to anesthesia, thrombosis or infection requiring removal, scarring, and other untold complications PROCEDURE SUMMARY: The patient is brought to the operative suite, and placed in the supine position. The patient is prepped and draped in the usual sterile fashion. he did receive preOp antibiotic. A time out was performed. The patient was placed in Trendelenburg position. The right chest region was prepped using chlorhexidine scrub and draped in sterile fashion using a full drape and sterile probe cover employed. Anesthesia was achieved with 30cc .50% Marcaine. I did attempt to canulate the right subclavian vein, however, this was not sucessful (he had a stenosis of the left subclavian) . Attention wsa then turned to the Right IJ. US was used to identify the Right IJ. The introducer needle was used to canulate the right IJ. Dark red non pulsatile blood was achieved. The syringe was removed and a guidewire was advanced into the introducer needle. A small incision was made at the skin surface with a scalpel and the introducer needle was exchanged for a dilator and sheath over the guidewire. Proper positioning was ensured w/ fluoroscopy. After appropriate dilation was obtained, the dilator and guidewire are exchanged over the wire for a power port catheter. The dilator and guidewire are removed. Proper positioning is again assured by fluoroscopy. The tear away sheath is than removed. A one inch incision is made in the calvipectoral position. A subcutaneous p ocket is created using Metzenbaum scissors. The catheter is tunneled subcutaneously over the clavicle. The catheter is attached to the hub and secured. The hub is sewn to the anterior chest wall using 2-0 prolene. There is no bleeding at the time of closure. The pocket is irrigated. The catheter is accessed. There is dark red venous return of blood. The catheter is flushed w/ heparinized saline per protocol. The incision is closed with 2-0 moncryl in two layers. Steri tapes and sterile pressure dressings are applied. The patient tolerated the procedure without any hemodynamic compromise. Post- procedure chest x-ray is pending at this time. The patient tolerated the procedure well without complication and transferred to the recovery room in stable condition.
--- NOTE | 2021-06-02 15:47 | W.PM.OP ---
Date of service: 06/02/21 Time of Service: 15:47 Operative Note Operative Note DATE OF PROCEDURE: 06/02/21 PRE-OP DIAGNOSIS: stage IV obstructing esophageal cancer POST-OP DIAGNOSIS: other (Obstructing esophageal cancer) PROCEDURE: insertion open gastrotomy tube SURGEON: Leatha Mitchell CHAIN TESTING MACHINE OPERATOR: Hunter Dong ANESTHESIA TYPE: Local By Surgeon and General LMA/ETT Refer to Anesthesia Record ESTIMATED BLOOD LOSS: 5 PATHOLOGY: none sent COMPLICATIONS: None Patient was transported to: PACU Procedure Description: The patient is here today for open feeding tube placement for metasstatic esophageal cancer. Informed consent is obtained explaining risks and benefits of the procedure including but not limited to: Bleeding, infection, pneumonia, blood clots. Complications of anesthesia including TN stroke or . Leaking or dislodgment of the tube which may require further operation. Damage to stomach or intestines, need for routine changes, aspiration, and skin complications and other unforetold complications. Patient is brought to the operative room suite and placed in the supine position. Anesthesia is administered per the department of anesthesia The procedure is done and continue with following the port placement The abdomen was prepped and draped in usual sterile fashion using a ChloraPrep scrub solution. Timeout is performed. He did receive antibiotics. A 3 inch incision is made in the subxiphoid, vertical midline position. Electrocautery is used to provide hemostasis, and to dissect down through the fascia. The muscle is divided midline. Peritoneum is elevated and entered sharply. The abdomen is then entered. the liver is palpated. There are no palpable tumor in the left lobe. There is a lesion palpable in the right lobe that is not amendable to biopsy. There are multiple enlarged nodes noted along the course of the gastroduodenal artery /lesser curvature and the greater curvature. The stomach is palpated; there is no gastric outlet obstruction. A site for the tube is chosen in the left upper quadrant. a stab incision is made with a #12 blade. The tube is passed through the incision into the abdominal cavity. The tube is position in the distal one third of the stomach. Stay sutures of 3-0 silk are placed proximally and distally. A stab incision is made in the stomach, and the gastric tube is passed through. And the weighted tube is passed w/ a guidewire through the duodenum and into the first portion of the jejunum with the assistance of palpation. The gastric balloon is inflated with 5 cc of fluid. A pursestring suture of 3-0 silk is placed around the opening of the tube, and is also sewn up to the anterior abdominal wall. Sterile saline is flushed through the catheter and there is no leakage from the stomach. There is aspiration of bile. Interceed is placed under the incision. The fascia is closed with 0 Vicryl and the wound is irrigated with saline. It is infiltrated with 10 cc of Exparel. Skin is closed with shailesh. Sterile dressing is placed over the wound and around the tube. Patient tolerated procedure well without complication and transferred to recovery room in stable condition
--- NOTE | 2021-06-02 15:48 | W.PM.PROGNOT ---
Date of Service Date of service: 06/02/21 Time of Service: 15:48 Subjective Subjective Interval history since last seen: Path: poorly differentiated adenocarcinoma Oncology input is pd. appt will be made for pt to f/u at [facility]. I did d/w the pt care w/ Efrem from [facility] medical staff. He would most likely be transferred to the [facility] the [facility] d/w dietary pt would require Fiber Source 5/cans per day or goal 55cc/hr 800cc free water daily -will start tube feeds in 24 hrs (3pm 06/03) -pain control Most likely d/c Saturday and than can schedule onc appt at [facility] in [place]. Pt wants to proceed w/chemo. Prognosis is poor Patient did meet with the palliative care team. Please refer to their note. Objective Last Vital Signs Temp 36.0 C L 06/02/21 15:29 Pulse 60 06/02/21 15:29 Resp 12 06/02/21 15:29 BP 131/56 L 06/02/21 15:29 Pulse Ox 100 06/02/21 15:29 Laboratory Results - last 24 hr 06/01/21 06/01/21 06/02/21 06:32 15:15 05:35 WBC RBC Hgb Hct MCV MCH MCHC RDW Plt Count MPV Immature Gran % Neutrophils % Lymphocytes % Monocytes % Eosinophils % Basophils % Nucleated RBC % Absolute Neutrophils Absolute Lymphocytes Absolute Monocytes Absolute Eosinophils Absolute Basophils Sodium Cancelled Potassium Cancelled Chloride Cancelled Carbon Dioxide Cancelled Anion Gap Cancelled BUN Cancelled Creatinine Cancelled Estimated GFR/1.73 m2 Cancelled Glucose Cancelled Calcium Cancelled Phosphorus Cancelled Magnesium Cancelled Total Bilirubin AST ALT Alkaline Phosphatase C-Reactive Protein Cancelled Total Protein Albumin Triglycerides Total Cholesterol LDL Cholesterol, Calc HDL Cholesterol Prostate Specific Ag 0.8 TSH SARS-CoV-2 (PCR) Negative Influenza Type A (PCR) Negative Influenza Type B (PCR) Negative RSV (PCR) Negative 06/02/21 06/02/21 06:00 06:00 WBC 9.71 RBC 3.57 L Hgb 11.6 L Hct 36.3 L MCV 101.7 H MCH 32.5 MCHC 32.0 RDW 12.8 Plt Count 96 L MPV Immature Gran % 0.5 Neutrophils % 59.9 Lymphocytes % 25.3 Monocytes % 13.0 Eosinophils % 1.0 Basophils % 0.3 Nucleated RBC % 0 Absolute Neutrophils 5.81 Absolute Lymphocytes 2.46 Absolute Monocytes 1.26 H Absolute Eosinophils 0.10 Absolute Basophils 0.03 Sodium 140 Potassium 3.5 Chloride 106 Carbon Dioxide 27.6 Anion Gap 6.4 BUN 41 H D Creatinine 1.3 Estimated GFR/1.73 m2 54.57 Glucose 125 H Calcium 8.2 L Phosphorus 2.1 L Magnesium 2.0 Total Bilirubin 0.5 AST 28 ALT 17 Alkaline Phosphatase 194 H C-Reactive Protein 3.36 H Total Protein 6.1 L Albumin 2.6 L Triglycerides 56 Total Cholesterol 84 LDL Cholesterol, Calc 34 HDL Cholesterol 39 L Prostate Specific Ag TSH 1.81 SARS-CoV-2 (PCR) Influenza Type A (PCR) Influenza Type B (PCR) RSV (PCR)
--- NOTE | 2021-06-02 18:35 | CMPROGNOTE_ITS ---
- If Service Date Differs Date of service: 06/02/21 Time of Service: 18:35 Care Management Progress Note S/O: Tremaine was in the OR when CM attempted to meet with him today. Per report, he went to the OR for a gastroscopy and possible peg tube placement. Per MD, tube feeds will start in 24 hours. He will be closely monitored post surgically. CM will continue to follow. A: 71 year old male admitted to [facility] 05/30/20 for obstructing esophageal cancer P: Tremaine will return to the [facility] when medically cleared. Transport will be arranged by the facility. He will follow up with the facility provider and discharge plan of care. CM will continue to follow.
[2021-06-03] VITALS (9 sets, daily range): BP systolic 116–172; BP diastolic 63–77; PULSE 54–67; RESP 16–18; TEMP 36–36.7; O2SAT 94–99
[2021-06-03] MEDS: MORPHine 2 MG/ML SYR IVP ×4 (00:37→12:35)
[2021-06-03] MEDS: Normal Saline Flush 10 ML SYR IVP ×4 (02:40→22:41)
[2021-06-03] MEDS: CLINDAMYCIN 600 MG/50 ML BAG 100 MG IVPB ×2 (02:49→07:58)
[2021-06-03] MEDS: Metoprolol 5 MG/5 ML VIAL 2.5 MG IVP (04:20)
[2021-06-03 07:20] LABS: HCT 33.6 % (40.0-50.0); MCH 32.4 pg (27.0-33.0); MCHC 32.7 % (32.0-36.0); MCV 98.8 fL (80-95); RDW 12.8 % (11.8-14.1); RDW-SD 45.7 fL; WBC 12.87 10^3/uL (4.4-10.8)
[2021-06-03 07:35] LABS: ALT 19 U/L (16-63); AST 25 U/L (15-37); Albumin 2.5 g/dL (3.4-5.0); Alkaline Phosphatase 189 U/L (46-116); Anion Gap 6.6 mmol/L (3-11); BUN 34 mg/dL (7-18); Bilirubin, Total 0.6 mg/dL (0.2-1.0); CO2 26.4 mmol/L (21.0-32.0); CREATININE 1.1 mg/dL (0.70-1.30); Calcium 8.2 mg/dL (8.5-10.1); Chloride 104 mmol/L (98-107); Glucose 149 mg/dL (74-106); Magnesium 1.9 mg/dL (1.8-2.4); Sodium 137 mmol/L (136-145); Total Protein 6.1 g/dL (6.4-8.2)
[2021-06-03 07:39] LABS: INR 1.1 (0.9-1.1); Prothrombin Time 10.8 sec (9.3-11.0)
[2021-06-03 07:56] LABS: Platelet Count 88 10^3/uL (130-400)
[2021-06-03] MEDS: FLUCONAZOLE 200 MG/100 ML BAG 100 MG IVPB (08:40)
--- NOTE | 2021-06-03 10:11 | W.PM.PROGNOT ---
Date of Service Date of service: 06/03/21 Time of Service: 10:11 Assessment and Plan Assessment and plan (1) Vertebral artery stenosis: Status: Acute Qualifiers: Laterality: unspecified laterality Qualified Code(s): I65.09 - Occlusion and stenosis of unspecified vertebral artery (2) COPD (chronic obstructive pulmonary disease) with emphysema: Status: Acute Qualifiers: Emphysema type: unspecified Qualified Code(s): J43.9 - Emphysema, unspecified (3) Atherosclerosis: Status: Acute (4) Acute kidney injury superimposed on chronic kidney disease: Status: Acute (5) Esophageal cancer, stage IV: Status: Acute Assessment and plan: -pathology results from [facility]- Moderate to poorly differentiated adenocarcinoma -CT scan shows esophageal cancer with mets to the liver and bone. -Patient has severe malnutrition with a documented 30 pound weight loss and hypoalbuminemia. He currently has a PICC line in and is receiving TPN. Electrolyte abnormalities are being corrected. Kidney function has recovered with fluids. TPN will be D/C'd once he is tolerating his tube feeding -Activity- needs to get up and move. Will order PT -I did discuss with the medical staff at the [facility]. He would need to go to the [facility] postop. And would most likely be ready to be transferred on Saturday or Saturday of next week. -His overall prognosis was poor. Palliative consult was done. I didn't communicate my findings to them as well. So far patient does want to proceed with aggressive care. Pain control- Will start on MOrphine solution, tylenol and ibuprofen solution. D/C IV Morphine DVT prophilaxis- SCD's. He is high risk for DVT due to his cancer. Will start on Lovenox SC TF- high fiber TF to start today (6) Abnormal weight loss: Status: Acute (7) Acute renal insufficiency: Status: Acute Assessment and plan: resolved (8) Dysphagia: Status: Acute Qualifiers: Dysphagia type: unspecified Qualified Code(s): R13.10 - Dysphagia, unspecified (9) Cerebrovascular disease: (10) CKD (chronic kidney disease) stage 3, GFR 30-59 ml/min: (11) GERD (gastroesophageal reflux disease): (12) Heart disease: (13) Hypertension: Assessment and plan: Has had mostly normal BP's on 2.5 mfg of IV metoprolol Will start on Carvedilol 3.125 mg through his G-tube BID (14) Murmur, heart: (15) Smoker: (16) History of common carotid artery stent placement: (17) History of coronary artery bypass graft x 3: (18) Severe protein-calorie malnutrition: Status: Acute (19) Abnormal blood electrolyte level: Status: Acute Subjective Subjective Interval history since last seen: Mr. Teixeira is doing well. He is not requiring much in pain medication. He is passing urine. NO BM. Exam Const General: cooperative, comfortable and no acute distress Orientation: alert and oriented x3 Resp Effort & Inspection: normal respiratory effort Auscultation: clear to auscultation bilaterally Cardio Rate: regular rate Rhythm: regular rhythm Heart Sounds: no gallops, no murmurs and no rubs GI Inspection: incision (c/d/i) Palpation: soft, no hepatosplenomegaly and tender (around the midline incision) Auscultation: normal bowel sounds Other: Feeding tube in place. Abdomen image: 1. midline incision 2. feeding tube Objective Last Vital Signs Temp 97.0 F L 06/03/21 07:20 Pulse 61 06/03/21 07:20 Resp 16 06/03/21 07:20 BP 117/68 06/03/21 07:20 Pulse Ox 98 06/03/21 07:20 Laboratory Results - last 24 hr 06/03/21 06/03/21 06/03/21 05:30 05:30 06:00 WBC RBC Hgb Hct MCV MCH MCHC RDW Plt Count MPV PT 10.8 INR 1.1 Sodium Cancelled Potassium Cancelled Chloride Cancelled Carbon Dioxide Cancelled Anion Gap Cancelled BUN Cancelled Creatinine Cancelled Estimated GFR/1.73 m2 Cancelled Glucose Cancelled Calcium Cancelled Phosphorus Cancelled Magnesium Total Bilirubin AST ALT Alkaline Phosphatase Total Protein Albumin 06/03/21 06/03/21 06:00 06:00 WBC 12.87 H D RBC 3.40 L Hgb 11.0 L Hct 33.6 L MCV 98.8 H MCH 32.4 MCHC 32.7 RDW 12.8 Plt Count 88 L MPV PT INR Sodium 137 Potassium 4.0 Chloride 104 Carbon Dioxide 26.4 Anion Gap 6.6 BUN 34 H Creatinine 1.1 Estimated GFR/1.73 m2 >= 60.00 Glucose 149 H Calcium 8.2 L Phosphorus 3.0 Magnesium 1.9 Total Bilirubin 0.6 AST 25 ALT 19 Alkaline Phosphatase 189 H Total Protein 6.1 L Albumin 2.5 L
--- NOTE | 2021-06-03 10:38 | W.ANESPOSTOP ---
Postoperative Evaluation Date, Time and Location Date Performed: 06/03/21 Time Performed: 10:38 Patient Location: Med/Surg Vital Signs Most Recent Imported Vital Signs: Most Recent Vital Signs Temp Pulse Resp BP Pulse Ox 36.1 C L 61 16 117/68 98 06/03/21 07:20 06/03/21 07:20 06/03/21 07:20 06/03/21 07:20 06/03/21 07:20 Most Recent Vital Signs Temp Pulse Resp BP Pulse Ox 35.7 C L 68 14 115/72 96 05/30/21 13:29 05/30/21 13:29 05/30/21 13:29 05/30/21 13:29 05/30/21 13:29 Pain Score Most Recent Pain Score: Most Recent Pain Score Pain Level 7 06/03/21 07:57 Assessment Mental Status: Awake (Alert & Oriented to Patient Baseline) Airway and Respiratory Function: Patent airway with normal (patient baseline) respiratory exam Cardiovascular Function: Hemodynamically Stable Hydration Status: Adequately Hydrated Nausea & Vomiting: No Nausea or Vomiting Pain: Pain is tolerable per patient Peripheral Nerve Block: Patient did not receive a nerve block
--- NOTE | 2021-06-03 13:36 | PT.INIE ---
Date of service: 06/03/21 Time of Service: 13:00 PT Notes Visit Reasons: Obstructing Esophageal Cancer Inpatient Physical Therapy Evaluation Date: 06/03/21 Referring Doctor: Maria G Rivera MD PT Orders: PT CONSULT: Exacerbation of chronic condition, patient with malnutrition and muscle wasting Precautions: Standard, gastrotomy tube 06/02/21 Patient Profile/Admitting Diagnosis: 71 y.o. 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 Patient has severe malnutrition with a documented 30 pound weight loss and hypoalbuminemia, in setting of remarkable medical history as documented below. 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) Atherosclerosis (Acute) Productive cough (Acute) DVT prophylaxis (Acute) Hypernatremia (Acute) Hypokalemia (Acute) Acute kidney injury superimposed on chronic kidney disease (Acute) Dehydration (Acute) Esophageal cancer (Acute) Abnormal weight loss (Acute) Acute renal insufficiency (Acute) Light-headed feeling (Acute) Chest pain (Acute) Dysphagia (Acute) Abdominal pain, epigastric (Acute) Medical History Cataracts, bilateral Cerebrovascular disease CKD (chronic kidney disease) stage 3, GFR 30-59 ml/min GERD (gastroesophageal reflux disease) Heart disease Hypertension Murmur, heart Pulmonary nodule SARS-CoV-2 positive (~01/2021) Asymptomatic Smoker Vertebral artery disease Surgical History History of common carotid artery stent placement 2017 [facility] [place] History of coronary artery bypass graft x 3 2014- [facility]/[place], [place] Social History/Home Situation: Currently incarcerated with chief risk officer supervision while in patient room. He is to be relocated to [facility] correctional facility upon discharge. Officers uncertain of his living accommodations - but assume he will be one floor, without stair navigation needed. Current Functional Limitations: CG with ambulation, RW, Mod A x 1 for bed mobility Equipment Owned/DME: None Subjective: Pain in abdomen Objective: General Observation: Lying in hospital bed, pic line, gastrotomy tube, muscle wasting visual Mental Status: Sleepy, oriented to person and place. Does not communicate much. Pain: 11/12 Vital Signs: BP 134/73, HR 65, 94% O2 on room air ROM: Right Upper Extremity: Grossly WFL Left Upper Extremity: Grossly WFL Lower Extremities: Assessment limited due to pain induced with movement, but appearing WFL with transfers and ambulation Strength: Defer strength testing due to strain on abdomen, causing increased pain S/P gastrotomy tube placement. Sensation: Intact Bed Mobility/Transfers: Mod A x 1 Supine (HOB 45 deg) to EOB, and vice versa Gait: RW, CG x 1, 30 ft. Slow, very short stride length limited by pain. Balance: Static Sitting: Good Dynamic Sitting: Fair - limited by pain and core control Static Standing: Good with RW Dynamic Standing: Fair - limited by pain and core control Special Tests: Mobility Limitations Standardized Measure [facility] AM-PAC 6 clicks Basic Mobility Inpatient Short Form: 57% disability Informed Consent/Education: Patient instructed in purpose of PT consult and plan of care. Assessment: Patient is a 71 year old male referred to physical therapy services S/P gastrotomy tube placement on 06/02/21 for management of malnourishment secondary to esophageal cancer (stage IV) with mets to bone and liver. Patient presents with clinical signs and symptoms consistent with global muscle wasting and weakness, and acute abdominal pain S/P surgery limiting tolerance to transfers and ambulation, dependent on assist. He requires skilled PT intervention to return to independent level. He is expected to be discharged with pic line once medically stable and independent, back to correctional facility. His current living situation allows for many unknowns in regards to functional capabilities needed to be safe at discharge, correctional officers were not able to offer much insight today. It can be assumed his needs would be accommodated. Patient is assessed as a Moderate 92751 complexity based on the following: History: See comorbidities Examination: See above assessment Presentation: Stable Decision Making: easy Goals: Goals X1 week 1. Supine-Sit I 2. Sit-Supine I 3. Sit-Stand I 4. Stand-Sit I 5. Bed-Chair I 6. Chair-Bed I 7. Gait I with walker, 30 ft 8. Stairs 3-4 with supervision 9. Independent with home exercise program 10. Balance Stable with use RW on level ground Plan of Care/Treatment Plan: 1-2x/day, 7 days/week x 1 week. Plan of care has been reviewed with the TECHNICAL SUPPORT MANAGER providing the service under Physical Therapy direction. Initiate Physical Therapy intervention for strengthening, bed mobility, transfers, gait, stairs, balance training, use of assistive device. DISCHARGE RECOMMENDATIONS: Patient is to return to correctional facility once medically stable, with physical therapy potentially needing to be arranged if he does not achieve above goals upon discharge. TREATMENT CODE/TIME: 25184, 30 min direct and total
[2021-06-03] MEDS: Ibuprofen 100 MG/5 ML CUP 590 MG PO (15:51)
[2021-06-03] MEDS: Milk of Magnesia 30 ML CUP PO (21:12)
[2021-06-03] MEDS: Carvedilol 3.125 MG TAB PO (21:15)
[2021-06-04] VITALS (10 sets, daily range): BP systolic 98–148; BP diastolic 58–83; PULSE 57–71; RESP 15–20; TEMP 36.2–37; O2SAT 92–99
[2021-06-04] MEDS: Normal Saline Flush 10 ML SYR IVP ×3 (07:46→21:33)
[2021-06-04] MEDS: Aspirin 81 MG CHEW CH (07:47)
[2021-06-04] MEDS: Carvedilol 3.125 MG TAB PO ×2 (07:47→21:32)
[2021-06-04] MEDS: FLUCONAZOLE 200 MG/100 ML BAG 100 MG IVPB (07:57)
[2021-06-04 08:05] LABS: ALT 19 U/L (16-63); AST 21 U/L (15-37); Albumin 2.2 g/dL (3.4-5.0); Alkaline Phosphatase 153 U/L (46-116); Anion Gap 4.5 mmol/L (3-11); BUN 34 mg/dL (7-18); Bilirubin, Total 0.4 mg/dL (0.2-1.0); CO2 27.5 mmol/L (21.0-32.0); CREATININE 1.1 mg/dL (0.70-1.30); Calcium 8.1 mg/dL (8.5-10.1); Chloride 106 mmol/L (98-107); Glucose 117 mg/dL (74-106); Potassium 4.2 mmol/L (3.5-5.1); Sodium 138 mmol/L (136-145); Total Protein 5.6 g/dL (6.4-8.2)
--- NOTE | 2021-06-04 09:31 | W.PM.PROGNOT ---
Date of Service Date of service: 06/04/21 Time of Service: 09:31 Assessment and Plan Assessment and plan (1) Vertebral artery stenosis: Status: Acute Qualifiers: Laterality: unspecified laterality Qualified Code(s): I65.09 - Occlusion and stenosis of unspecified vertebral artery (2) COPD (chronic obstructive pulmonary disease) with emphysema: Status: Acute Qualifiers: Emphysema type: unspecified Qualified Code(s): J43.9 - Emphysema, unspecified (3) Atherosclerosis: Status: Acute (4) Acute kidney injury superimposed on chronic kidney disease: Status: Acute (5) Esophageal cancer, stage IV: Status: Acute Assessment and plan: Dx: pathology results from [facility]- Moderate to poorly differentiated adenocarcinoma CT scan shows esophageal cancer with mets to the liver and bone. Poor prognosis. Patient has met with Palliative Care. At this time he wants to pursue aggressive treatment Nutrition: He is tolerating TF at goal of 55 cc/hr. TPN was d/c'd. Free water 200 cc q 2 hours Activity: PT is working with him. He is very weak Pain control: Morphine solution, tylenol and ibuprofen solution. D/C IV Morphine DVT prophilaxis: SCD's. He is high risk for DVT due to his cancer. PLT are low. On baby aspirin Discharge: He is stable. Should be able to get discharged tomorrow to [facility] with referral to [facility] oncology. This was communicated to the guards in his room. (6) Abnormal weight loss: Status: Acute (7) Acute renal insufficiency: Status: Acute Assessment and plan: resolved (8) Dysphagia: Status: Acute Qualifiers: Dysphagia type: unspecified Qualified Code(s): R13.10 - Dysphagia, unspecified (9) Cerebrovascular disease: (10) CKD (chronic kidney disease) stage 3, GFR 30-59 ml/min: (11) GERD (gastroesophageal reflux disease): (12) Heart disease: (13) Hypertension: Assessment and plan: Has had mostly normal BP's on 2.5 mfg of IV metoprolol Will start on Carvedilol 3.125 mg through his G-tube BID (14) Murmur, heart: (15) Smoker: (16) History of common carotid artery stent placement: (17) History of coronary artery bypass graft x 3: (18) Severe protein-calorie malnutrition: Status: Acute Subjective Subjective Interval history since last seen: Mr. Teixeira is doing well. The Morphine solution is working well for him. He is tolerating TF at goal. TPN has been stopped. Passing flatus, no BM yet Exam Const General: cooperative, comfortable and no acute distress Orientation: alert and oriented x3 HENMT Head: normocephalic and atraumatic Resp Effort & Inspection: normal respiratory effort Auscultation: clear to auscultation bilaterally Cardio Rate: regular rate Rhythm: regular rhythm GI Inspection: normal to inspection and incision (c/d/i) Palpation: soft, no hepatosplenomegaly and nontender Auscultation: normal bowel sounds Objective Last Vital Signs Temp 97.2 F L 06/04/21 06:29 Pulse 58 L 06/04/21 07:48 Resp 15 06/04/21 06:29 BP 98/61 L 06/04/21 06:29 Pulse Ox 97 06/04/21 06:29 Laboratory Results - last 24 hr 06/02/21 06/04/21 06:00 06:00 Sodium 138 Potassium 4.2 Chloride 106 Carbon Dioxide 27.5 Anion Gap 4.5 BUN 34 H Creatinine 1.1 Estimated GFR/1.73 m2 >= 60.00 Glucose 117 H Calcium 8.1 L Total Bilirubin 0.4 AST 21 ALT 19 Alkaline Phosphatase 153 H Total Protein 5.6 L Albumin 2.2 L Free PSA 0.3 Total PSA 1.4 PSA Free/Total Ratio See Comment
[2021-06-04] MEDS: Bisacodyl 10 MG SUPP PR (10:50)
--- NOTE | 2021-06-04 13:51 | PTTR_ITS ---
PT Notes Visit Reasons: Obstructing Esophageal Cancer Inpatient Physical Therapy Treatment Note [facility] Date: 06/04/21 SUBJECTIVE: Tremaine offers no complaints to me. OBJECTIVE: [] PAIN: abdominal pain with mvmt. BED MOBILITY/TRANSFERS Rolling L/R: I Supine-sit: SBA Sit-supine:SBA Sit-stand: CGA Stand-sit: SBA GAIT Assistive Device: RW Weight bearing: FWB Assist:CGA Distance: 25'x2 Deviation: very slow lydia. ASSESSMENT: tolerated session well. Very slow with all mvmt and gait due to increased abdominal pain. PLAN: continue to progress to his tolerance. September d/c to another facility to [place]. TREATMENT CODE/TIME: 15 min. [id number]
[2021-06-04] MEDS: Milk of Magnesia 30 ML CUP PO (21:33)
[2021-06-05 03:23] VITALS: BP 119/65; PULSE 63; RESP 16; TEMP 36.7; O2SAT 95
[2021-06-05 07:32] LABS: ALT 20 U/L (16-63); AST 20 U/L (15-37); Albumin 2.2 g/dL (3.4-5.0); Alkaline Phosphatase 159 U/L (46-116); Anion Gap 4.2 mmol/L (3-11); BUN 28 mg/dL (7-18); Bilirubin, Total 0.6 mg/dL (0.2-1.0); CO2 29.8 mmol/L (21.0-32.0); CREATININE 1.2 mg/dL (0.70-1.30); Calcium 7.9 mg/dL (8.5-10.1); Chloride 102 mmol/L (98-107); Estimated GFR 59.86 (mL/min/1.73m2); Glucose 103 mg/dL (74-106); Potassium 4.3 mmol/L (3.5-5.1); Sodium 136 mmol/L (136-145); Total Protein 5.7 g/dL (6.4-8.2)
[2021-06-05 07:55] VITALS: BP 131/59; PULSE 61; RESP 16; TEMP 37; O2SAT 96
[2021-06-05] MEDS: Aspirin 81 MG CHEW CH (08:32)
[2021-06-05] MEDS: Carvedilol 3.125 MG TAB PO (08:33)
[2021-06-05] MEDS: Normal Saline 500 ML 30 ML IV (08:35)
[2021-06-05] MEDS: FLUCONAZOLE 200 MG/100 ML BAG 100 MG IVPB (08:35)
[2021-06-05] MEDS: Normal Saline Flush 10 ML SYR IVP (08:36)
--- NOTE | 2021-06-05 09:02 | CMPROGNOTE_ITS ---
- If Service Date Differs Date of service: 06/05/21 Time of Service: 09:02 Care Management Progress Note S/O: Per Dr. Mendez, Tremaine will likely be discharged today to [facility] with referral to [facility] oncology. A: 71 year old male admitted to [facility] 05/30/20 for obstructing esophageal cancer P: Tremaine will return to the [place] [facility] when medically cleared. Transport will be arranged by the facility. He will follow up with the facility provider and discharge plan of care. CM will continue to follow.
--- NOTE | 2021-06-05 09:02 | PDOC.CMPRO ---
- If Service Date Differs Date of service: 06/05/21 Time of Service: 09:02 Care Management Progress Note S/O: Per Dr. Mendez, Tremaine will likely be discharged today to [facility] with referral to [facility] oncology. A: 71 year old male admitted to [facility] 05/30/20 for obstructing esophageal cancer P: Tremaine will return to the [place] [facility] when medically cleared. Transport will be arranged by the facility. He will follow up with the facility provider and discharge plan of care. CM will continue to follow.
[2021-06-05] MEDS: Polyethylene Glycol 3350 17 GM PACKET 34 GM PO (10:33)
--- NOTE | 2021-06-05 10:39 | DSE_ITS ---
Date of service: 06/05/21 Time of Service: 10:39 DS: Diagnosis Discharge Diagnosis (1) Vertebral artery stenosis: Status: Acute (2) COPD (chronic obstructive pulmonary disease) with emphysema: Status: Acute (3) Atherosclerosis: Status: Acute (4) Acute kidney injury superimposed on chronic kidney disease: Status: Acute (5) Esophageal cancer, stage IV: Status: Acute (6) Abnormal weight loss: Status: Acute (7) Acute renal insufficiency: Status: Acute (8) Dysphagia: Status: Acute (9) Cerebrovascular disease: (10) CKD (chronic kidney disease) stage 3, GFR 30-59 ml/min: (11) GERD (gastroesophageal reflux disease): (12) Heart disease: (13) Hypertension: (14) Murmur, heart: (15) Smoker: (16) History of common carotid artery stent placement: (17) History of coronary artery bypass graft x 3: (18) Severe protein-calorie malnutrition: Status: Acute Discharge Plan Disposition Patient Disposition: [facility] Condition: Poor Discharge Details Reason For Visit: Obstructing Esophageal Cancer Admit Date/Time: 05/30/21 12:28 Admit Provider: Leatha Mitchell Attending Provider: Leatha Mitchell [facility] Hospital Course: Patient underwent EGD on 05/29/2021 for dysphagia and weight loss. He was found to have an obstructing esophageal cancer. It was a complete obstruction. He was in low-grade renal failure from chronic dehydration. He was admitted for hydration and adjustment of his electrolytes. He underwent CT scanning which does show a have metastatic disease to the liver and the bones particularly the vertebra of T9, T10, and T11. His path did come back as poorly differentiated adenocarcinoma. I did discuss with the patient his diagnosis. And whether he wants to go into hospice or pursue treatment. Patient has gone back and forth with his decision but ultimately at this time of discharge had decided he wants to pursue treatment. On June 02, we did place a PowerPort in the right IJ position and a open gastrojejunal feeding tube. Both of these have been functioning well. He is currently tolerating a goal of tube feed at 55 cc an hour. He is on Pepcid for GI prophylaxis. He is on aspirin daily for DVT prop hylaxis and because of his history of coronary artery disease/peripheral vascular disease. He has been refusing the ibuprofen and Tylenol for pain management and opting for the morphine and he is getting 10 mg every 4 hours. This could be cut back to 4 mg every 6 hours. Patient will be discharged back to custody of the DOC. At this point he said his he actively wants to pursue treatment. Oncology referral to [facility] will have to be done by the DOC. Medications have been adjusted for his feeding tube status. Report was called to Dr. Alcocer at the DOC. Patient is returned to the care of the DOC. His prognosis is extremely poor. Home Meds and New Rx's Prescriptions: New aspirin 81 mg tablet,chewable 81 mg feeding tube DAILY Qty: 30 RF: 12 acetaminophen 650 mg/20.3 mL Solution 650 mg PO Q6H PRN PRNQty: 609 RF: 0 aspirin 81 mg Tablet,Chewable 81 mg feeding tube DAILY Qty: 30 RF: 0 carvedilol 3.125 mg tablet 3.125 mg feeding tube BID Qty: 60 RF: 0 ibuprofen 100 mg/5 mL Suspension 590 mg PO Q6H PRN PRNQty: 250 RF: 0 morphine 10 mg/5 mL Solution 5 mg feeding tube Q6H PRNQty: 500 RF: 0 famotidine [Pepcid] 20 mg tablet 20 mg feeding tube DAILY Qty: 30 RF: 0 polyethylene glycol 3350 [Miralax] 17 gram/dose powder 17 g feeding tube DAILY Qty: 510 RF: 0 Discontinued atorvastatin 80 mg tablet 80 mg PO DAILY RF: 0 amlodipine 5 mg tablet 5 mg PO DAILY RF: 0 multivitamin Tablet 1 tab PO DAILY RF: 0 hydrochlorothiazide 25 mg tablet 25 mg PO DAILY RF: 0 aspirin [Aspir-81] 81 MG tablet,delayed release (DR/EC) 81 mg PO DAILY RF: 0 carvedilol 12.5 mg tablet 12.5 mg PO BID RF: 0 docusate sodium [Colace] 100 mg Capsule 100 mg PO BID RF: 0 scopolamine base 1 mg over 3 days Patch 3 Day 1 mg topical Q3D PRNRF: 0 ondansetron HCl 4 mg Tablet 4 mg PO TID PRN PRNRF: 0 pantoprazole [Protonix] 40 mg Tablet,Delayed Release (Dr/Ec) 40 mg PO DAILY RF: 0 famotidine [Pepcid] 20 mg tablet 20 mg PO BID Qty: 56 RF: 0 No Action nitroglycerin [Nitrostat] 0.4 mg tablet, sublingual 0.4 mg sublingual Q5M PRNRF: 0 Discharge Instructions Additional Instructions: -needs urgent appt w/ oncology at [facility]. Films and slides sent to [facility]. Appt needs to be arranged by DOC -No lifting over 5#'s -Wash abdominal incision daily. -Clean around feeding tube site daily. Keep clean and dry -change dressing on Power port using sterile technique every 7 days -change [place] needle every 7 days, with dressing -Flush w/ 5cc of 100units/1ml heparin every 30 days if not being actively used. -OK to shower- cover feeding tube site -Physical therapy if available. -activity as tolerated -ASA for DVT prophylaxis and b/c of CAD. -Pt has not had a BM. Double dose of Miralax daily until he dose. Than daily dose of Miralax -Does not need to F/u w/ Surgery -Dietary consult: On 05/30/21 his weight was down to 58.5 kg which is a 22.5% unintentional weight loss and is significant. It is noted on his physical exam that he is cachexic and has muscle atrophy in his extremities. Estimated energy needs are: 1500 kcal/day (25 kcal/kg/day) Estimated protein needs are 76 g to 88 g/day (1.3 to 1.5 g/kg/day) Estimated fluid needs are: 1800 ml/day (30 ml/kg/day) -Tube feeding at [facility]: Fiber Source 5/cans per day or goal 55cc/hr 800cc free water daily -Feeding could be done as bolus feeding. Activity:: see above Equipment/Supplies:: No Equipment Needed Diet:: see above DS: Summary Time Spent with Patient providing and/or coordinating discharge services: Greater than 30 minutes Status at Discharge Functional status at discharge: wheelchair bound Overall status at discharge: patient is not back to baseline Mental Status: mental status grossly normal Speech and Movement: speech and movement normal Mood: congruent mood Affect: normal affect Exam Psych Mental Status: mental status grossly normal Speech and Movement: speech and movement normal Mood: congruent mood Affect: normal affect DS: Data Vitals/I&O Vitals and I&O: Vital Signs Temperature 37.0 C 06/05/21 07:55 Temperature Source Tympanic 06/05/21 07:55 Pulse 61 06/05/21 07:55 Pulse Rhythm Regular 06/05/21 08:30 Respiratory Rate 16 06/05/21 07:55 Respiratory Effort Non-Labored 06/05/21 08:30 Respiratory Depth Normal 06/05/21 08:30 Respiratory Pattern Normal 06/05/21 08:30 Blood Pressure 131/59 L 06/05/21 07:55 Pulse Oximetry 96 06/05/21 07:55 Respiratory End-tidal CO2 36 05/30/21 13:03 Oxygen Delivery Method Room Air 06/05/21 07:55 Oxygen Flow Rate 0 06/05/21 07:55 Pain Level 7 06/05/21 08:33 Comment 06/02/21 10:10 Intake & Output 06/04/21 06/04/21 06/05/21 11:59 23:59 11:59 Intake Total 646 / 3893 3247 / 3893 45 / 45 Output Total 550 / 1495 945 / 1495 1100 / 1100 Balance 96 / 2398 2302 / 2398 -1055 / -1055 Intake: IV 232 / 232 40 / 40 Intake, Tube Feeding Amount 646 / 3661 3015 / 3661 5 / 5 Output: Urine 550 / 1495 945 / 1495 1070 / 1070 Output, Residual 30 / 30 Other: Urine Color Straw Yellow Pale Yellow Urine Appearance Clear Clear Clear Urine Odor None Normal Normal Voiding Methods Urinal Urinal Urinal Data Completed and Pending Labs on day of discharge: Labs from last 24 hours 06/05/21 06:40 Sodium 136 Potassium 4.3 Chloride 102 Carbon Dioxide 29.8 Anion Gap 4.2 BUN 28 H Creatinine 1.2 Estimated GFR/1.73 m2 59.86 Glucose 103 Calcium 7.9 L Total Bilirubin 0.6 AST 20 ALT 20 Alkaline Phosphatase 159 H Total Protein 5.7 L Albumin 2.2 L PFSH All Active Problems (Updated 06/03/21 @ 10:15 by Maria G Rivera MD) Abnormal blood electrolyte level (Acute) Severe protein-calorie malnutrition (Acute) Esophageal cancer, stage IV (Acute) -complete obstruction -mets to liver and spine Vertebral artery stenosis (Acute) COPD (chronic obstructive pulmonary disease) with emphysema (Acute) Atherosclerosis (Acute) Productive cough (Acute) DVT prophylaxis (Acute) Hypernatremia (Acute) Hypokalemia (Acute) Acute kidney injury superimposed on chronic kidney disease (Acute) Dehydration (Acute) Abnormal weight loss (Acute) Acute renal insufficiency (Acute) Dysphagia (Acute) Medical History (Updated 06/03/21 @ 10:15 by Maria G Rivera MD) Cataracts, bilateral Cerebrovascular disease CKD (chronic kidney disease) stage 3, GFR 30-59 ml/min GERD (gastroesophageal reflux disease) Heart disease Hypertension Murmur, heart Palliative care patient Pulmonary nodule SARS-CoV-2 positive (~01/2021) Asymptomatic Smoker Vertebral artery disease Surgical History History of common carotid artery stent placement 2017 [facility] History of coronary artery bypass graft x 3 2013- [place], [place] Family History Mother Heart disease Diabetes Hypertension Maternal Grandmother Stroke Social History Smoking/Tobacco Use Status: Former Tobacco Use Smoking risk assessment performed?: Yes Alcohol Intake: former Drug use: Never Substance use type: does not use Do you feel safe at home: Yes Do you feel safe in your relationship?: Yes Additional Social history: [employer] inmate
--- NOTE | 2021-06-05 11:29 | W.PM.PROGNOT ---
Date of Service Date of service: 06/05/21 Time of Service: 11:29 Assessment and Plan Assessment and plan (1) Severe protein-calorie malnutrition: Status: Acute (2) Esophageal cancer, stage IV: Status: Acute (3) Vertebral artery stenosis: Status: Acute Qualifiers: Laterality: unspecified laterality Qualified Code(s): I65.09 - Occlusion and stenosis of unspecified vertebral artery (4) COPD (chronic obstructive pulmonary disease) with emphysema: Status: Acute Qualifiers: Emphysema type: unspecified Qualified Code(s): J43.9 - Emphysema, unspecified (5) Abnormal weight loss: Status: Acute (6) Dysphagia: Status: Acute Qualifiers: Dysphagia type: unspecified Qualified Code(s): R13.10 - Dysphagia, unspecified (7) Cataracts, bilateral: (8) Cerebrovascular disease: (9) CKD (chronic kidney disease) stage 3, GFR 30-59 ml/min: (10) GERD (gastroesophageal reflux disease): (11) Hypertension: (12) Smoker: (13) Vertebral artery disease: Subjective Subjective Interval history since last seen: pt is doing ok. he is tolerating the tube feed. He has not had a BM. He is able to swallow his own secretions. Tube site is c/d/i adn functioning Port is c/d/i and functioning well. We d/w how he wants to proceed w/ his care. If we transfer him to a hospice house, he would be going there to . Tube feeds/water/abx would be stopped. If he wants to try to do palliative chemo, which would increase the time he has left,but may make him sick, than he needs to f/u oncology at [facility]. Today, at this time, he is still in the custody of the [place] DOC, and if would be [facility] duty to arrange oncologic consultation. His outcome is poor, and it may be only a few weeks. Pt verbalized understanding adn states he wants to go to treatment at this time. pt is stable for d/c today.It is the DOC's responsibility to arrange all medications and the feeding soln., and care. pt sheets adn instructions were sent to them and report given to the [facility] doctor. see d/c order f/u onc [facility] Objective Last Vital Signs Temp 37.0 C 06/05/21 07:55 Pulse 61 06/05/21 07:55 Resp 16 06/05/21 07:55 BP 131/59 L 06/05/21 07:55 Pulse Ox 96 06/05/21 07:55 Laboratory Results - last 24 hr 06/05/21 06:40 Sodium 136 Potassium 4.3 Chloride 102 Carbon Dioxide 29.8 Anion Gap 4.2 BUN 28 H Creatinine 1.2 Estimated GFR/1.73 m2 59.86 Glucose 103 Calcium 7.9 L Total Bilirubin 0.6 AST 20 ALT 20 Alkaline Phosphatase 159 H Total Protein 5.7 L Albumin 2.2 L
[2021-06-05 11:47] VITALS: BP 100/58; PULSE 56; RESP 16; TEMP 36.8; O2SAT 97
[2021-06-05] MEDS: Heparin 500 UNITS/5 ML SYRINGE (11:50)
[2021-06-05] MEDS: Normal Saline 10 ML VIAL IJ (11:50)
--- NOTE | 2021-06-05 12:01 | PDOC.CMDIS ---
- If Service Date Differs Date of service: 06/05/21 Time of Service: 12:02 LACE Index Scoring Tool - Questions: Length of Stay (in days): 4 - 6 Acuity (Admit via E.D.?): No Comorbidities: Cerebrovascular Disease, Congestive Heart Failure, with End Organ Damage, Liver or Renal Disease, Metastatic Solid Tumor E.D. Visits: 3 - Answers: Total Score: 12 Risk of Readmission: High Risk Care Management Discharge Reason for Hospitalization: Obstructing esophageal cancer Discharge Plan: Discharge back to [facility] via facility transportion (arranged by attending DOC officers.) Patient will follow up with community providers, including [facility] oncology which will be arranged by DOC. Patient/Family Education Needs: Review discharge instructions, limitations, medications and plan to follow up with community providers. ask me three. - Disposition Dis[facility]: [facility] Transport via of: Other (Via facility transportation, arranged by [facility])
--- NOTE | 2021-06-05 14:21 | PTTR_ITS ---
Date of service: 06/05/21 Time of Service: 08:41 PT Notes Visit Reasons: Obstructing Esophageal Cancer Inpatient Physical Therapy Treatment Note [facility] Date: 06/05/2021 PRECAUTIONS: Activity as tolerated, family preservation officer present at all times SUBJECTIVE: Tremaine is agreeable to participating in PT. He states that he is very sore this morning. His nurse reports that he has not had his Morphine adm inistered yet today. OBJECTIVE: PAIN: Patient c/o increasing abdominal pain with gait training and transfers BED MOBILITY/TRANSFERS Supine-sit: S with HOB at 30 degrees Sit-supine: Min A with HOB at 20 degrees Sit-stand: SBA Stand-sit: SBA GAIT Assistive Device: FWW Weight bearing: Full Assist: CGA-SBA Distance: 60' Deviation: Slow lydia, short step height and length with cueing to increase THEREX: Patient was instructed in several seated UE and LE strengthening exercises, completed at EOB, as per flow sheet. ASSESSMENT: Patient tolerated session with c/o increased abdominal pain with gait training and transfers. He was able to tolerate a progression in gait distance with FWW support and CGA-SBA. PLAN: Patient to discharge to [facility] later today, per provider. Recommend PT follow-up, ? PT. TREATMENT CODE/TIME: 15 minutes; [id number] (08:41)
--- NOTE | 2021-06-05 20:20 | INDS_ITS ---
Date of service: 06/05/21 PT Notes Visit Reasons: Obstructing Esophageal Cancer Physical Therapy Inpatient Discharge Summary Date: 06/05/2021 Date of service: 06/03/2021 through 06/05/2021 This is a clinical summary of care provided for the duration of dates listed above. No charge was made in the completion of this documentation. Referring Doctor: Maria G Rivera MD PT Orders: PT CONSULT: Exacerbation of chronic condition, patient with malnutrition and muscle wasting Precautions: Standard, gastrotomy tube 06/02/21 Patient Profile/Admitting Diagnosis: 71 y.o. 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 Patient has severe malnutrition with a documented 30 pound weight loss and hypoalbuminemia, in setting of remarkable medical history as documented below. 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) Atherosclerosis (Acute) Productive cough (Acute) DVT prophylaxis (Acute) Hypernatremia (Acute) Hypokalemia (Acute) Acute kidney injury superimposed on chronic kidney disease (Acute) Dehydration (Acute) Esophageal cancer (Acute) Abnormal weight loss (Acute) Acute renal insufficiency (Acute) Light-headed feeling (Acute) Chest pain (Acute) Dysphagia (Acute) Abdominal pain, epigastric (Acute) Medical History Cataracts, bilateral Cerebrovascular disease CKD (chronic kidney disease) stage 3, GFR 30-59 ml/min GERD (gastroesophageal reflux disease) Heart disease Hypertension Murmur, heart Pulmonary nodule SARS-CoV-2 positive (~01/2021) Asymptomatic Smoker Vertebral artery disease Surgical History History of common carotid artery stent placement 2016 [facility] [place] History of coronary artery bypass graft x 3 2013- [facility], [place] Social History/Home Situation: Currently incarcerated with chief operations officer supervision while in patient room. He is to be relocated to [facility] correctional facility upon discharge. Officers uncertain of his living accommodations - but assume he will be one floor, without stair navigation needed. Current Functional Limitations: CG with ambulation, RW, Mod A x 1 for bed mobility Equipment Owned/DME: None Subjective: NT. See most recent SHIPYARD PAINTER notes. Objective: General Observation: NT. See most recent SHIPYARD PAINTER notes. Mental Status: NT. See most recent SHIPYARD PAINTER notes. Pain: NT. See most recent SHIPYARD PAINTER notes. Vital Signs: NT. See most recent SHIPYARD PAINTER notes. ROM: Right Upper Extremity: Grossly WFL Left Upper Extremity: Grossly WFL Lower Extremities: Assessment limited due to pain induced with movement, but appearing WFL with transfers and ambulation Strength: Defer strength testing due to strain on abdomen, causing increased pain S/P gastrotomy tube placement. Sensation: Intact Bed Mobility/Transfers: Min A x 1 Supine (HOB 45 deg) to EOB, and vice versa Gait: RW, CG x 1, 60 ft. Slow, very short stride length limited by pain. 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 Patient presents with clinical signs and symptoms consistent with global muscle wasting and weakness, and acute abdominal pain S/P surgery limiting tolerance to transfers and ambulation, dependent on assist. He requires skilled PT intervention to return to independent level. Goals: Goals X1 week 1. Supine-Sit I NOT MET 2. Sit-Supine I NOT MET 3. Sit-Stand I NOT MET 4. Stand-Sit I NOT MET 5. Bed-Chair I NOT MET 6. Chair-Bed I NOT MET 7. Gait I with walker, 30 ft NOT MET 8. Stairs 3-4 with supervision NOT MET 9. Independent with home exercise program NOT MET 10. Balance Stable with use RW on level ground NOT MET DISCHARGE RECOMMENDATIONS: Patient is to return to correctional facility once medically stable, with physical therapy potentially needing to be arranged if he does not achieve above goals upon discharge. TREATMENT CODE/TIME: OH Thank you for the opportunity to participate in the care of this patient. Alisia Sutherland PT, DPT, CLT [facility] [place], [place]
== END 2021-06-05 15:45 | disposition home or self-care (01) | DRG 356 ==
LOC: MS 14:13
PROVIDERS: Internal Medicine; Surgery; Admitting Provider Surgery; PCP Nurse Practitioner; Visit Provider Surgery
PROC: 0DJ68ZZ Inspection of Stomach, Via Natural or Artificial Opening Endoscopic (ICD-10-PCS; CPT 43235; principal; 2021-05-30 10:00)
PROC: 0DH64UZ Insertion of Feeding Device into Stomach, Percutaneous Endoscopic Approach (ICD-10-PCS; CPT 49440; principal; 2021-06-02 11:30)
PROC: 0JH60WZ Insertion of Totally Implantable Vascular Access Device into Chest Subcutaneous Tissue and Fascia, Open Approach (ICD-10-PCS; CPT 36561; 2021-06-02 11:30)
DX: C15.9 Malignant neoplasm of esophagus, unspecified (principal); E43 Unspecified severe protein-calorie malnutrition; N17.9 Acute kidney failure, unspecified; E87.0 Hyperosmolality and hypernatremia; C79.51 Secondary malignant neoplasm of bone; C78.7 Secondary malignant neoplasm of liver and intrahepatic bile duct; R63.4 Abnormal weight loss; I12.9 Hypertensive chronic kidney disease with stage 1 through stage 4 chronic kidney disease, or unspecified chronic kidney disease; N18.30 Chronic kidney disease, stage 3 unspecified; I65.23 Occlusion and stenosis of bilateral carotid arteries; J43.9 Emphysema, unspecified; E86.0 Dehydration; Z68.20 Body mass index [BMI] 20.0-20.9, adult; I25.2 Old myocardial infarction; R91.1 Solitary pulmonary nodule; K21.9 Gastro-esophageal reflux disease without esophagitis; I67.2 Cerebral atherosclerosis; Z87.891 Personal history of nicotine dependence; R13.10 Dysphagia, unspecified; Z95.1 Presence of aortocoronary bypass graft; I67.9 Cerebrovascular disease, unspecified; Z86.16 Personal history of COVID-19; E87.6 Hypokalemia; I25.10 Atherosclerotic heart disease of native coronary artery without angina pectoris; N28.9 Disorder of kidney and ureter, unspecified; I51.9 Heart disease, unspecified; R10.13 Epigastric pain; R05.8 Other specified cough; Z29.9 Encounter for prophylactic measures, unspecified; R01.1 Cardiac murmur, unspecified; Z98.890 Other specified postprocedural states; Z95.828 Presence of other vascular implants and grafts; E87.8 Other disorders of electrolyte and fluid balance, not elsewhere classified
CPT/HCPCS: 43239; 36561; 44500; 36415; 36569; 71045; 74177; 77001; 80048; 80053; 80061; 85027; 87637; 88305; 97161; 97530; 70470; 71260; 83615; 83735; 84100; 84153; 84154; 84295; 84443; 85025; 85610; 86140; 99222; C1788; J1100; J1450; J1650; J2001; J2270; J2370; J2405; J3010; J3480; J3490; J7060